=== PATIENT | female | born 1945 | race Caucasian/White ===

== ENCOUNTER 2017-05-26 08:52 | Observation (INO) | payer OTHER ==
[2017-05-26] VITALS (13 sets, daily range): BP systolic 74–173; BP diastolic 36–98
[~2017-05-26] VITALS: Ht 160 cm; Wt 70.3 kg
[~2017-05-26 08:52] MED LIST: APAP500 PO; ASPIRIN EC81 M1 PO; CALCIUM 500 +1 EAC5 PO; CARVEDILOL3.125 MG PO; CARVEDILOL6.25 MG PO; CO Q-10100 MG PO; CRESTOR5 MG PO; CYMBALTA60 MG PO; DICLOFENAC SOD50 M1; EFFIENT10 MG PO; FISH OIL 1,0001 EAC5 PO; FLEXERIL PO; GABAPENTIN100 MG PO; HUMALOG100 UNIT/2 SUBQ; HUMULINR100; HYDROCODON-ACE1 EAC8; HYDROCODON-ACE1 EAC8 PO; IMDUR 30 MG TAB30 M1 PO; KEFLEX500 MG PO; LAMICTAL 25 MG25 M1; LAMOTRIGINE100 MG PO; LANTUS SC; LANTUSSOLASTAR SUBQ; LEVAQUIN 500 M500 M1 PO; LISINOPRIL10 MG; LISINOPRIL10 MG PO; LISINOPRIL20 MG PO; NEURONTIN 300300 M1 PO; NITROGLYCERIN0.3 MG SL; NITROGLYCERIN0.4 MG SL; OMEPRAZOLE 20 M20 MG PO; PREMARIN0.9 M1 PO; PREMPRO 0.3 MG1 EACH PO; VITAMIN D1000 UNI1 PO; VITAMIN D400 UNI1; XANAX 0.25 MG0.25 MG PO; ZOFRAN ODT4 MG PO; proair hfa IH
[2017-05-26 09:45] LABS: HEMATOCRIT 39.7 % (37.0-47.0); HEMOGLOBIN 13.1 gm/dL (12.0-15.0); MCH 30.7 pg (26.0-34.0); MCHC 33.1 g/dL (28.0-37.0); MCV 92.9 fL (80.0-100.0); MPV 8.1 fl. (7.2-11.1); RBC 4.28 mil/uL (4.20-5.00); WBC 8.8 thou/uL (4.0-11.0)
[2017-05-26] MEDS ORDERED: IMDUR 30 MG TAB30 M1 PO (09:52)
[2017-05-26 09:54] LABS: PROTIME 9.6 Seconds (9.20-11.50)
[2017-05-26 09:59] LABS: ANION GAP 4 mmol/L (7-16); BUN 20 mg/dL (7-18); CALCIUM 8.4 mg/dL (8.5-10.1); CHLORIDE 104 mmol/L (98-107); CO2 34 mmol/L (21-32); CREATININE 0.8 mg/dL (0.6-1.3); GLUCOSE 194 mg/dL (70-99); POTASSIUM 4.4 mmol/L (3.5-5.1); SODIUM 142 mmol/L (136-145)
[2017-05-26 10:04] LABS: ALBUMIN 3.2 g/dL (3.4-5.0); ALKALINE PHOSPHATASE 104 U/L (46-116); CHOLESTEROL 157 mg/dL (<200); HDL CHOLESTEROL 68 mg/dL (>40); LDL CHOLESTEROL 79 mg/dL (<100); SERUM ASSESSMENT Clear; SGOT 16 U/L (15-37); SGPT 19 U/L (30-65); TC:HDL 2.3 Ratio (Not establshd); TOTAL BILIRUBIN 0.4 mg/dL (<0.1-1.0); TOTAL PROTEIN 6.2 g/dL (6.4-8.2); TRIGLYCERIDE 53 mg/dL (<150); VLDL 11 mg/dL (<40)
--- NOTE | 2017-05-26 10:42 | H ---
[place] [address] HISTORY AND PHYSICAL Name: KATIE ZAMORA Room: [facility]#: [id number] Admission: 05/26/17 Attend Phys: Simon Collier MD, Discharge: Date of : 47 Report #: [id number] THIS REPORT FOR: //name// CC: Simon Garcia DATE OF SERVICE: 05/26/2017 HISTORY OF PRESENT ILLNESS: The patient is a very pleasant 72-year-old female with a history of coronary artery disease, approximately 4 years status post non-ST segment elevation myocardial infarction, interrupted by percutaneous coronary intervention of the right coronary artery. Recently, she has been plagued by an upper respiratory infection. She denied symptoms typical of myocardial ischemia, but does note some dyspnea on exertion. There is underlying hypertension, hypercholesterolemia, type 2 diabetes and cigarette smoking history. The patient is compliant with antiplatelet, antihypertensive, lipid lowering and diabetic therapy without side effects. MEDICATIONS: Included Augmentin, aspirin, carvedilol, cholecalciferol, coenzyme Q, Cymbalta, fish oil, gabapentin, hydrocodone, Lantus insulin, Humalog insulin, isosorbide dinitrate, Lamictal, and Crestor. PAST MEDICAL HISTORY: Remarkable for diabetes, hyperlipoproteinemia, mild chronic kidney disease and chronic anxiety. She is status post carpal tunnel release and prior neck surgery. PHYSICAL EXAMINATION: GENERAL: Demonstrates an elderly female, in no acute distress. VITAL SIGNS: Blood pressure is 130/72, pulse rate is 84, respirations are 18 per minute. NECK: Jugular venous pressure is normal. Carotids are 1-2+. CHEST: Reveals scattered rhonchi without wheezing. CARDIAC: Reveals no murmurs or gallops. ABDOMEN: Soft and nontender. EXTREMITIES: Without edema with intact pulses. DIAGNOSTIC STUDIES: Recent nuclear stress test of 05/17/2017 is reviewed and it demonstrated inducible inferolateral ischemia with ST-T changes suggestive of ischemia. IMPRESSION: 1. Coronary artery disease, status post remote inferior infarction. 2. Recently abnormal stress test with [place] [address] HISTORY AND PHYSICAL Name: KATIE ZAMORA Room: [facility]#: [id number] Admission: 05/26/17 Attend Phys: Simon Collier MD, Discharge: Date of : 47 Report #: [id number]-T changes suggestive of ischemia. 3. Underlying coronary artery disease. 4. Hypertension. 5. Type 2 diabetes. 6. Hyperlipoproteinemia. 7. Status post prior percutaneous intervention to the right coronary artery. RECOMMENDATIONS: Given the aforementioned clinical scenario with known coronary artery disease and recently abnormal stress test with inducible inferolateral ischemia on radionuclide scans with concomitant ST-T changes suggestive of ischemia, I would recommend proceeding with cardiac catheterization to define the magnitude of coronary artery disease and prospects for subsequent therapy. The procedure and risks have been discussed with the patient. The patient to be admitted as an outpatient for cardiac catheterization on 05/26/2017. <ELECTRONICALLY SIGNED> By: Simon Collier MD, FACC 05/26/17 1042 1118 [id number] Collier MD, [facility] /nt
--- NOTE | 2017-05-26 16:21 | EKG ---
[place] [address] ELECTROCARDIOGRAM REPORT Name: KATIE ZAMORA Room: [place] [address] ADM IN M.R.#: [id number] Admission: 05/26/17 Attend Phys: Simon Collier MD, Discharge: Date of : 47 Report #: [id number] THIS REPORT FOR: //name// [facility] Test Date: 2017-05-26 Test Time: 10:38:46 Pat Name: KATIE ZAMORA Department: Room: [facility] Gender: F Life Sciences Manager: : 1945 Requested By: Simon Collier Order Number: [id number] Lucia MD: Simon Collier Measurements Intervals [place] Rate: 60 P: 57 HI: 161 QRS: 45 QRSD: 79 T: 75 QT: 424 QTc: 424 Interpretive Statements Sinus rhythm Compared to ECG 12/16/2014 11:00:49 Ventricular premature complex(es) no longer present Atrial abnormality no longer present Electronically Signed On 05-26-2017 16:21:39 HYDRAMATIC MECHANIC by Simon Collier [email or web address] <ELECTRONICALLY SIGNED> By: Simon Collier MD, [facility] 05/26/17 1621 1038 1038 Simon Collier MD, FAC /EPI
--- NOTE | 2017-05-26 16:23 | EKG ---
[place] [address] ELECTROCARDIOGRAM REPORT Name: KATIE ZAMORA Room: [place] [address] ADM IN M.R.#: [id number] Admission: 05/26/17 Attend Phys: Simon Collier MD, Discharge: Date of : 47 Report #: [id number] THIS REPORT FOR: //name// [facility] Test Date: 2017-05-26 Test Time: 12:43:49 Pat Name: KATIE ZAMORA Department: Room: [facility] Gender: F Intrusion Analyst: : 1945 Requested By: Simon Collier Order Number: [id number] Lucia MD: Simon Collier Measurements Intervals [place] Rate: 84 P: 69 SC: 164 QRS: 38 QRSD: 84 T: 102 QT: 409 QTc: 484 Interpretive Statements Sinus rhythm Nonspecific T abnormalities, lateral leads Minimal ST elevation, anterior leads Baseline wander in lead(s) II Compared to ECG 12/16/2014 11:00:49 T-wave abnormality now present ST (T wave) deviation now present Electronically Signed On 05-26-2017 16:23:21 SEMI CONDUCTOR ASSEMBLER by Simon Collier [email or web address] <ELECTRONICALLY SIGNED> By: Simon Collier MD, [facility] 05/26/17 1623 1243 1243 Simon Collier MD, [facility] /EPI
--- NOTE | 2017-05-26 16:40 | NUR ---
A WHITE FEMALE AGE 72 ADMITTED POST CATH FROM DIRECTOR OF ASSESSING. DRESSING DRY AND INTACT TO LEFT GROIN. IVF OF NS INFUSING AT 50 ML/HR. FAMILT TOOK ALL BELONINGS HOME FROM DIRECTOR OF ASSESSING. PT DENIES ANY COMPLAINTS OF PAIN OR DISCOMFORT. WILL MONITOR FREQUENTLY.
--- NOTE | 2017-05-26 16:42 | CARD ---
[address] [address] CARDIAC CATH REPORT Name: KATIE ZAMORA Room: [address] IN [facility]#: [id number] Admission: 05/26/17 Attend Phys: Simon Collier MD, Discharge: Date of : 46 Report #: [id number] THIS REPORT FOR: //name// APPROVED REPORT Patient Details Patient Status: Out-Patient Room #: The patient is a 72 year-old female Event Personnel Celeste Hurtado RN, Simon Collier Electrical Assembly Supervisor, Grisel Nevarez Langston, Anthony ARRT (R) Monitor Procedures Performed [place] Place w/wo Plasty Single CIRC; left heart catheterization left ventriculography and selective coronary angiography Indication Positive stress test Risk Factors Hypercholesterolemia, Hypertension Previous Procedures/Diagnoses Previous PCI, Previous ID Admission/Lab Medications/Medications given during procedure Angiomax bolus and infusion Procedure Narrative The patient was brought electively to the Cardiac Catheterization Laboratory and was prepped and draped in a sterile manner. The left femoral was infiltrated with 1% Lidocaine subcutaneous anesthesia. A [place] 6FR sheath was inserted into the Left Femoral Artery. Coronary angiography was performed using coronary diagnostic catheters. The right coronary system was accessed and visualized with a Diagnostic AL1 catheter. The left coronary system was accessed and visualized with a Diagnostic JL 4 catheter. The left ventricle was accessed and visualized with a Diagnostic Angled Pig catheter. Left ventricular/Aortic Valve gradient assessed via catheter pullback. Left ventriculogram was performed in CHAMBERS projection. Pre-demployment femoral angiogram was performed . Closure device was deployed with a Fr Angioseal STS 6Fr. The patient [place] [address] CARDIAC CATH REPORT Name: KATIE ZAMORA Room: [address] IN [facility]#: [id number] Admission: 05/26/17 Attend Phys: Simon Collier MD, Discharge: Date of : 46 Report #: [id number] there were no complications associated with the procedure. There was no hematoma. Intraoperative Conscious Sedation Sedation start time: 10:53 Case end Time: 11:53 Fentanyl 25 mcg Versed 1 mg Fluoro Time: 15.6 minutes Dose: DAP 069971 cGycm2 1732 mGy Contrast Type and Amount: Visipaque 350 ml Diagnostic Cath Left Main 0% narrowing LAD 20% mid LAD narrowing Circumflex 75% calcified mid circumflex stenosis with 90% calcified distal circumflex stenosis Right Coronary Dominant vessel with widely patent proximal stents 40% mid vessel narrowing and 40% narrowing of the proximal portion of the posterior descending artery Left Ventriculography The left ventricle is normal in size with contractility. The left ventricular ejection fraction is estimated to be 50%. Left ventricular wall motion abnormalities are present. There is no mitral insufficiency. There is moderate inferobasilar and mild inferoapical hypokinesis noted Hemodynamics The aortic pressure is 153/57 mmHg with a mean of 90 mmHg. The left ventricular pressure is 148/1 mmHg with a mean of mmHg. The left ventricular end diastolic pressure is 12 mmHg. There was no gradient across the aortic valve upon pullback. PCI Technique Lesion Anticoagulation was achieved with Angiomax. Patient was preloaded with Angiomax IV 10.5 ml. Percutaneous coronary intervention was performed on the distal circumflex artery segment. The lesion stenosis prior to intervention was 90% with SUSIE 3 flow. A 6F XB LAD 3.5 Guide Catheter was used to engage the ostium. A IG: ProwaterFlex 180CM Interventional Guidewire was used to cross the lesion. BALLOON DILATION A Balloon catheter Trek RX 2.25 X 8 was inserted and inflated up to 12.00atm for 15seconds. Additional Inflation: 14.00atm for 13seconds. Additional Inflation: 14.00atm [place] 11[place]. [place] [address] CARDIAC CATH REPORT Name: KATIE ZAMORA Room: [address] IN [facility]#: [id number] Admission: 05/26/17 Attend Phys: Simon Collier MD, Discharge: Date of : 46 Report #: [id number] STENT DEPLOYMENT A drug-eluting stent Xience Alpine RX 2.25X12 was inserted and inflated up to 10.00atm for 13seconds. Additional Inflation: 14.00atm for 12seconds. Additional Inflation: 15.00atm for 12seconds. Final angiography reveals 10 % stenosis with SUSIE 3 flow. PCI Technique Lesion 2 Percutaneous Coronary Intervention was performed on the mid circumflex artery segment. Patient was preloaded with Angiomax IV 10.5 ml. Percutaneous coronary intervention was performed on the mid circumflex artery segment. The lesion stenosis prior to intervention was 75% with SUSIE 3 flow. A 6F XB LAD 3.5 Guide Catheter was used to engage the ostium. A IG: ProwaterFlex 180CM Interventional Guidewire was used to cross the lesion. Balloon Dilation A Balloon catheter Trek RX 2.25 X 8 was inserted and inflated up to 14atm for 13seconds. Stent Deployment A drug-eluting stent Xience Alpine RX 2.5X12 was inserted and inflated up to 12.00atm for 15seconds. Additional Inflation: 15.00atm for 10seconds. Final angiography reveals 10 % stenosis with SUSIE 3 flow. Conclusion #1 significant coronary artery disease characterized by the following: A 20% mid LAD narrowing, B tandem 75% mid and 90% distal circumflex stenoses, both being calcified, C dominant right coronary artery with widely patent proximal stents 40% mid vessel narrowing and 40% narrowing of the proximal portion of the posterior descending branch #2 mild impairment in global left ventricular systolic function, estimated ejection being a 50% with moderate inferobasilar and mild [place] [address] CARDIAC CATH REPORT Name: KATIE ZAMORA Room: [address] IN [facility]#: [id number] Admission: 05/26/17 Attend Phys: Simon Collier MD, Discharge: Date of : 47 Report #: [id number] #3 moderate systemic systolic hypertension #4 successful percutaneous coronary intervention with deployment of sequential drug-eluting stents at the size of 75% mid and 90% distal circumflex stenosis with 10% residual narrowing at both sites following stent deployment and SUSIE-3 flow the distal vessel. Recommendations Cardiac Rehabilitation Referral Medical Therapy Medications Administered Aspirin (any) Ticagrelor <ELECTRONICALLY SIGNED> By: Simon Collier MD, FACC 05/26/171640 40 40Simon Collier MD, FACC /INF
--- NOTE | 2017-05-26 19:00 | NUR ---
PT RESTING WELL. PT TOLERATED SUPPER TRAY. PT BS 235 PT REFUSING S/S DOSE BUT DID TAKE 12 UNITS.LEFT ROIN DRESSING REMAINS INTACT. PT IS PROGRESSING TOWARDS GOALS.
[2017-05-27 01:03] VITALS: BP 148/50
[2017-05-27 03:50] VITALS: BP 148/69
[2017-05-27 05:28] LABS: HEMATOCRIT 36.6 % (37.0-47.0); HEMOGLOBIN 12.4 gm/dL (12.0-15.0); MCHC 33.8 g/dL (28.0-37.0); MCV 91.7 fL (80.0-100.0); MPV 8.2 fl. (7.2-11.1); RBC 3.99 mil/uL (4.20-5.00); RDW-CV 13.1 % (10.5-14.5); WBC 10.7 thou/uL (4.0-11.0)
[2017-05-27 05:41] LABS: CALCIUM 8.1 mg/dL (8.5-10.1); CREATININE 0.6 mg/dL (0.6-1.3); POTASSIUM 3.9 mmol/L (3.5-5.1)
[2017-05-27 06:07] LABS: TROPONIN-I LEVEL 2.79 ng/mL (<0.06)
--- NOTE | 2017-05-27 06:46 | NUR ---
PT IS ABLE TO COMMUNICATE HER NEEDS TO STAFF EFFECTIVELY. CURRENT PAIN MEDICATION REGIMEN HAS BEEN ADEQUATE FOR CONTROLLING HER PAIN UP TO THIS TIME. GRESHMA WAS PATENT UNTIL REMOVAL THIS MORNING. LEFT GROIN SITE IS C/D/I UP TO THIS TIME.
--- NOTE | 2017-05-27 07:20 | NUR ---
CHANGE OF SHIFT BEDSIDE REPORT GIVEN ASSUMED PATIENT CARE PATIENT SEEN AT BEDSIDE, ASLEEP
[2017-05-27 08:00] VITALS: BP 155/57
[2017-05-27 10:42] VITALS: BP 121/52
[2017-05-27 11:54] VITALS: BP 149/44
--- NOTE | 2017-05-27 13:00 | NUR ---
PATIENT WITH C/O NAUSEA THIS AM TREATED WITH ZOFRAN IVP RELIEVED AND WAS ABLE TO EAT AND TOLERATE LUNCH
[2017-05-27] MEDS ORDERED: BRILINTA90 MG PO (16:09)
--- NOTE | 2017-05-27 17:00 | NUR ---
PATIENT WITH C/O OF WEAKNESS AND A LITTLE DIAPHORETIC BLOOD GLUCOSE CHECKED AND 45, H/O DM PATIENT WITH NO IV ACCESS DUE TO PENDING DISCHARGE HOME PATIENT GIVEN PEANUT BUTTER AND MILK TO EAT AND DRINK REMAINED AT BEDSIDE WITH PATIENT PATIENT STATES FEELS BETTER DINNER HERE AND PATIENT TO EAT DINNER AND WILL RECHECK BLOOD GLUCOSE AFTER DINNER AND REEVALUATE PATIENT
--- NOTE | 2017-05-27 17:17 | EKG ---
[place] [address] ELECTROCARDIOGRAM REPORT Name: KATIE ZAMORA Room: [address] M.R.#: [id number] Admission: 05/26/17 Attend Phys: Simon Collier MD, Discharge: Date of : 46 Report #: [id number] THIS REPORT FOR: //name// [facility] Test Date: 2017-05-27 Test Time: 05:05:14 Pat Name: KATIE ZAMORA Department: Room: [facility] Gender: F Multimedia Educational Specialist: GEOVANNI : 1945 Requested By: Simon Collier Order Number: [id number] Reading MD: Shravan Latif Measurements Intervals [place] Rate: 71 P: 68 [place]: 173 QRS: 16 QRSD: 83 T: 57 QT: 393 QTc: 428 Interpretive Statements Sinus rhythm Ventricular premature complex Probable left atrial enlargement Compared to ECG 05/26/2017 12:43:49 Ventricular premature complex(es) now present T-wave abnormality no longer present ST (T wave) deviation no longer present Electronically Signed On 05-27-2017 17:16:51 ENVIRONMENTAL LAWYER by Shravan Latif [email or web address] <ELECTRONICALLY SIGNED> By: Shravan Latif MD, FACC 05/27/17 1716 0505 0505 Shravan Latif MD, [facility] /EPI
--- NOTE | 2017-05-27 17:30 | NUR ---
PATIENT STATES "FEELS BETTER" BLOOD GLUCOSE RECHECK 173
--- NOTE | 2017-05-27 17:44 | NUR ---
PATIENT DCD TO HOME DC INFORMATION GIVEN AND ACKNOWLEDGED IV AND HEART MONITOR REMOVED PERSONAL BELONGINGS RETURNED PATIENT ASSISTED OUT VIA WC GOOD CONDITION TO WAITING CAR
--- NOTE | 2017-05-28 10:49 | H ---
[place] [address] HISTORY AND PHYSICAL Name: KATIE ZAMORA Room: [address] Laxmi Gaines#: [id number] Admission: 05/26/17 Attend Phys: Simon Collier MD, Discharge: 05/27/17 Date of : 47 Report #: [id number] THIS REPORT FOR: //name// CC: Simon Garcia DATE OF SERVICE: 05/26/2017 The patient admitted and seen on 05/26/2017, admitted through outpatient for cardiac catheterization on 05/26/2017. HISTORY OF PRESENT ILLNESS: The patient is a 72-year-old female with known coronary artery disease, status post non-ST segment elevation inferior infarction interrupted by percutaneous coronary intervention of the right coronary artery in April 2012. Recently, she has described some chest discomfort and dyspnea, the latter in the setting of an upper respiratory infection. There is underlying hypertension, hypercholesterolemia, type 2 diabetes, and a prior cigarette smoking. MEDICATIONS: The patient takes a complex medical regimen including Augmentin, aspirin, carvedilol, cholecalciferol, duloxetine, fish oil, gabapentin, hydrocodone/acetaminophen, Lantus insulin, Humalog insulin, isosorbide dinitrate, lamotrigine and rosuvastatin. PAST MEDICAL HISTORY: Remarkable for the aforementioned risk factors for coronary disease including hypertension, hypercholesterolemia and type 2 diabetes. She is status post prior carpal tunnel release, neck surgery and total knee arthroplasty. PHYSICAL EXAMINATION: GENERAL: Demonstrates an elderly female in no acute distress. VITAL SIGNS: Blood pressure 130/70, pulse rate is 82, respirations are 18 per minute. NECK: Jugular venous pressure is normal. CHEST: Clear. CARDIOVASCULAR: Reveals normal first and second heart sounds with a soft systolic murmur with a question of S4 gallop. ABDOMEN: Mildly obese. EXTREMITIES: Without edema with intact femoral, trace right pedal and 1-2+ left pedal pulses. Recent nuclear stress test was abnormal with inducible ischemia. IMPRESSION: [place] [address] HISTORY AND PHYSICAL Name: KATIE ZAMORA Room: [address] Laxmi Gaines#: [id number] Admission: 05/26/17 Attend Phys: Simon Collier MD, Discharge: 05/27/17 Date of : 47 Report #: [id number] 1. Coronary artery disease. 2. Recently abnormal stress test with inducible ischemia. 3. Status post remote inferior infarction interrupted by percutaneous coronary intervention to the right coronary artery in 2012. 4. Hypertension. 5. Type 2 diabetes. 6. Hyperlipoproteinemia. RECOMMENDATIONS: Given the aforementioned clinical scenario, I will recommend cardiac catheterization to document current coronary anatomy and prospects for subsequent therapy. This has been discussed with the patient and family. The patient to be admitted through same day surgery for catheterization on 05/26/2017. <ELECTRONICALLY SIGNED> By: Simon Collier MD, [facility] 05/28/17 1049 1030 [id number] Araceli Colleir MD, [facility] /nt
--- NOTE | 2017-05-28 10:49 | D ---
[address] [address] DISCHARGE SUMMARY Name: KATIE ZAMORA Room: [address] Laxmi Gaines#: [id number] Admission: 05/26/17 Attend Phys: Simon Collier MD, Discharge: 05/27/17 Date of : 47 Report #: [id number] THIS REPORT FOR: //name// CC: Simon Garcia DATE OF SERVICE: 05/27/2017 FINAL DISCHARGE DIAGNOSES: 1. Coronary artery disease. 2. Abnormal nuclear stress test. 3. Status post percutaneous coronary intervention with deployment of two drug-eluting stents in the mid and distal circumflex respectively. 4. History of non-ST segment elevation myocardial infarction in 2012, with stenting of the right coronary artery at that time. 5. Hypertension. 6. Diabetes mellitus. 7. Hyperlipoproteinemia. PROCEDURES: 05/26/2017-left heart catheterization, left ventriculography, selective coronary arteriography, and percutaneous coronary intervention with deployment of two drug-eluting stents in the circumflex. The patient is a very pleasant 72-year-old female who presented with an abnormal nuclear stress test and dyspnea on exertion. She has the risk factors for coronary artery disease including diabetes, hypertension, and hyperlipoproteinemia. She underwent cardiac catheterization on 05/26, which revealed 75% mid and 90% distal circumflex stenosis. There was mild mid LAD narrowing with widely patent proximal right coronary artery stents and 40% mid and distal right coronary artery narrowing. Given this data, I placed two drug-eluting stents in the mid and distal circumflex respectively with a good angiographic result. The patient did well postprocedurally. She had no chest pain suggesting recurrent ischemia. Laboratory on 05/27, revealed sodium 137, potassium 3.9, BUN 14, and creatinine 0.6. Hemoglobin 12.4, white blood cell count 10,700 with 211,000 platelets. She ambulated without difficulty and there was good hemostasis at the left femoral site of catheterization. She was discharged to home on the following medications: Aspirin 81 mg daily, carvedilol 6.25 mg b.i.d., cholecalciferol 2000 units daily, Cymbalta 60 mg daily, fish oil 1000 mg daily, gabapentin 300 mg t.i.d., Lantus insulin 35 units subcutaneously in the a.m., Humalog insulin 12-15 units subcutaneously with meals on a sliding scale at home, isosorbide mononitrate 30 mg daily, lamotrigine 100 mg daily, omega-3 fatty acids 10,000 mg daily, ticagrelor or Brilinta 90 mg b.i.d. with a 180 mg dose given periprocedurally, Coenzyme Q 100 mg daily, ProAir as needed, [place] [address] DISCHARGE SUMMARY Name: KATIE ZAMORA Room: [address] Laxmi Gianes#: [id number] Admission: 05/26/17 Attend Phys: Simon Collier MD, Discharge: 05/27/17 Date of : 47 Report #: [id number] p.r.n. sublingual nitroglycerin. The patient is scheduled to return to see my nurse practitioner, Gabby Ashford in 06/02/2017, at 1330 and myself on 07/27/2017 at 11:30. <ELECTRONICALLY SIGNED> By: Simon Collier MD, FACC 05/28/17 1049 0916 [id number] Collier MD, FACC /nt
[2017-08-04] MEDS ORDERED: ZETIA10 MG PO (11:19)
[2017-08-04] MEDS ORDERED: HYDROCODONE-AP1 EAC6 PO (11:20)
== END 2017-05-27 18:00 | disposition home or self-care (01) ==
LOC: M.CL 08:52 → M.2W 12:10 → M.TBA-CV 12:10 → M.2W 16:53
PROVIDERS: ADMIT Internal Medicine
DX: I25.10 Atherosclerotic heart disease of native coronary artery without angina pectoris (principal); R94.39 Abnormal result of other cardiovascular function study; I25.2 Old myocardial infarction; E78.5 Hyperlipidemia, unspecified; E78.00 Pure hypercholesterolemia, unspecified; E11.22 Type 2 diabetes mellitus with diabetic chronic kidney disease; I12.9 Hypertensive chronic kidney disease with stage 1 through stage 4 chronic kidney disease, or unspecified chronic kidney disease; N18.2 Chronic kidney disease, stage 2 (mild); F41.8 Other specified anxiety disorders; Z87.891 Personal history of nicotine dependence

== ENCOUNTER 2017-07-11 11:05 | Emergency (ER) | payer OTHER ==
[~2017-07-11] VITALS: Ht 165.1 cm; Wt 77.1 kg
[~2017-07-11 11:05] MED LIST changes: +BRILINTA90 MG PO
[2017-07-11] MEDS ORDERED: EFFIENT10 MG PO (11:17)
[2017-07-11 11:40] LABS: ABSOLUTE BASOPHILS 0.1 thou/uL (0.0-0.2); ABSOLUTE EOSINOPHILS 0.3 thou/uL (0.0-0.7); ABSOLUTE LYMPHOCYTES 1.9 thou/uL (0.8-5.3); ABSOLUTE MONOCYTES 0.7 thou/uL (0.0-1.2); ABSOLUTE NEUTROPHILS 6.9 thou/uL (1.6-8.1); BASOPHILS 0.6 %; EOSINOPHILS 3.2 %; HEMATOCRIT 43.3 % (37.0-47.0); HEMOGLOBIN 14.2 gm/dL (12.0-15.0); LYMPHOCYTES 18.9 %; MCH 30.5 pg (26.0-34.0); MCHC 32.8 g/dL (28.0-37.0); MONOCYTES 6.9 %; MPV 7.8 fl. (7.2-11.1); NUCLEATED RBCS 0 /100WBC; PLATELET COUNT* 261 thou/uL (150-400); POLYS 70.4 %; RBC 4.65 mil/uL (4.20-5.00); RDW-CV 13.1 % (10.5-14.5); WBC 9.8 thou/uL (4.0-11.0)
[2017-07-11 11:54] LABS: APTT 25.4 Seconds (25.0-31.3); INR 0.9; PROTIME 9.1 Seconds (9.20-11.50)
[2017-07-11 12:21] LABS: ANION GAP 6 mmol/L (7-16); BUN 15 mg/dL (7-18); CALCIUM 9.3 mg/dL (8.5-10.1); CHLORIDE 101 mmol/L (98-107); CO2 32 mmol/L (21-32); CREATININE 0.6 mg/dL (0.6-1.3); GLUCOSE 163 mg/dL (70-99); POTASSIUM 5.2 mmol/L (3.5-5.1); SODIUM 139 mmol/L (136-145)
[2017-07-11 12:40] LABS: ALBUMIN 3.6 g/dL (3.4-5.0); ALKALINE PHOSPHATASE 136 U/L (46-116); CK-MB MASS 6.4 ng/mL (<0.5-3.6); LIPASE 43 U/L (73-393); NT-PRO BRAIN NAT PEPTIDE 317 pg/mL (<300); SGOT 49 U/L (15-37); SGPT 29 U/L (30-65); TOTAL BILIRUBIN 0.5 mg/dL (<0.1-1.0); TOTAL PROTEIN 7.4 g/dL (6.4-8.2); TROPONIN-I LEVEL <0.06 ng/mL (<0.06)
[2017-07-11 13:44] VITALS: BP 191/83
--- NOTE | 2017-07-12 10:48 | EKG ---
[place] [address] ELECTROCARDIOGRAM REPORT Name: KATIE ZAMORA [id number] Admission: 07/11/17 Attend Phys: Discharge: 07/11/17 Date of : 47 Report #: [id number] THIS REPORT FOR: //name// [facility] ED Test Date: 2017-07-11 Test Time: 11:16:02 Pat Name: KATIE ZAMORA Department: Room: Gender: F Oceanographer Physical: : 1945 Requested By: Denny Densi Order Number: [id number] MD: Pro Acuña Measurements Intervals [place] Rate: 70 P: 75 MD: 161 QRS: 8 QRSD: 86 T: 54 QT: 412 QTc: 445 Interpretive Statements Sinus rhythm nonspecific t wave change Compared to ECG 05/27/2017 05:05:14 Ventricular premature complex(es) no longer present Electronically Signed On 07-12-2017 10:48:11 CDT by Pro Acuña [email or web address] <ELECTRONICALLY SIGNED> By: Pro Acuña MD, [facility] 07/12/17 1048 15 Pro Acuña MD, FACC /EPI
[2017-08-04] MEDS ORDERED: ZETIA10 MG PO (11:19)
[2017-08-04] MEDS ORDERED: HYDROCODONE-AP1 EAC6 PO (11:20)
== END 2017-07-11 13:45 | disposition home or self-care (01) ==
LOC: M.ERS 11:05
PROVIDERS: Family Medicine
DX: I10 Essential (primary) hypertension (principal); E11.9 Type 2 diabetes mellitus without complications; I25.2 Old myocardial infarction; Z88.1 Allergy status to other antibiotic agents; Z88.2 Allergy status to sulfonamides; Z88.5 Allergy status to narcotic agent

== ENCOUNTER 2017-07-16 20:34 | Inpatient (IN) | payer OTHER ==
[~2017-07-16] VITALS: Ht 157.5 cm; Wt 75.3 kg
[2017-07-16 20:43] VITALS: BP 181/76
[2017-07-16 21:16] LABS: HEMATOCRIT 38.8 % (37.0-47.0); HEMOGLOBIN 12.7 gm/dL (12.0-15.0); MCH 30.8 pg (26.0-34.0); MCHC 32.6 g/dL (28.0-37.0); MCV 94.2 fL (80.0-100.0); MPV 8.5 fl. (7.2-11.1); NUCLEATED RBCS 0 /100WBC; PLATELET COUNT* 238 thou/uL (150-400); RBC 4.12 mil/uL (4.20-5.00); RDW-CV 13.2 % (10.5-14.5); WBC 16.3 thou/uL (4.0-11.0)
[2017-07-16 21:16] LABS: URINE BILIRUBIN NEGATIVE (Negative); URINE BLOOD NEGATIVE (Negative); URINE CLARITY CLEAR; URINE COLOR YELLOW; URINE GLUCOSE-RANDOM 3+ (Negative); URINE KETONES 3+ (Negative); URINE LEUKOCYTES-REFLEX NEGATIVE (Negative); URINE NITRITE-REFLEX NEGATIVE (Negative); URINE PROTEIN TRACE (Negative)
[2017-07-16 21:22] LABS: ANION GAP 7 mmol/L (7-16); BUN 16 mg/dL (7-18); CALCIUM 8.5 mg/dL (8.5-10.1); CHLORIDE 101 mmol/L (98-107); CO2 30 mmol/L (21-32); CREATININE 0.9 mg/dL (0.6-1.3); GLUCOSE 347 mg/dL (70-99); POTASSIUM 4.2 mmol/L (3.5-5.1); SODIUM 138 mmol/L (136-145)
[2017-07-16 21:26] LABS: PROTIME 9.6 Seconds (9.20-11.50)
[2017-07-16 21:38] LABS: ALBUMIN 3.2 g/dL (3.4-5.0); ALKALINE PHOSPHATASE 143 U/L (46-116); NT-PRO BRAIN NAT PEPTIDE 616 pg/mL (<300); SGOT 17 U/L (15-37); SGPT 18 U/L (30-65); TOTAL BILIRUBIN 0.9 mg/dL (<0.1-1.0); TOTAL PROTEIN 6.8 g/dL (6.4-8.2); TROPONIN-I LEVEL <0.06 ng/mL (<0.06)
[2017-07-16 21:44] LABS: ABSOLUTE MONOCYTES 1.3 thou/uL (0.0-1.2)
[2017-07-16 21:45] LABS: ANISOCYTOSIS Occasional; PLATELET ESTIMATE ADEQUATE; TOXIC GRANULATION 1+
[2017-07-17 00:07] LABS: INFLUENZA A ANTIGEN None Detected (None Detect); INFLUENZA B ANTIGEN None Detected (None Detect)
[2017-07-17 03:39] LABS: BE -1.1 mmol/L (-2 to +3); HCO3 25.4 mmol/L (22.0-26.0); PO2 107.6 mmHg (75.0-100.0); pH 7.322 (7.340-7.450)
[2017-07-17 03:41] LABS: PCO2 50.2 mmHg (35.0-45.0)
[2017-07-17 08:38] VITALS: BP 129/72
[2017-07-17 09:00] VITALS: BP 136/58
[2017-07-17 10:00] VITALS: BP 136/58
[2017-07-17 11:30] VITALS: BP 136/58
--- NOTE | 2017-07-17 12:25 | EKG ---
[place] [address] ELECTROCARDIOGRAM REPORT Name: HARRIETT ZAMORANA JORDANA Room: [address] ADM IN M.R.#: [id number] Admission: 07/17/17 Attend Phys: Alex Littlejohn Discharge: Date of : 47 Report #: [id number] THIS REPORT FOR: //name// [facility] ED Test Date: 2017-07-16 Test Time: 21:19:52 Pat Name: KATIE ZAMORA Department: Room: [facility] Gender: F Inventory Control Manager: CASPER : 1945 Requested By: Loraine Urbina Order Number: [id number] MD: Iker Kirby Measurements Intervals [place] Rate: 86 P: 68 [place]: 154 QRS: 33 QRSD: 81 T: 30 QT: 387 QTc: 463 Interpretive Statements Sinus rhythm Ventricular premature complex Compared to ECG 07/11/2017 11:16:02 Ventricular premature complex(es) now present T-wave abnormality no longer present Electronically Signed On 07-17-2017 12:24:58 CDT by Iker Kirby [email or web address] <ELECTRONICALLY SIGNED> By: Iker Kirby MD, FAC 07/17/17 1224 18 18 Iker Kirby MD, [facility] /EPI
[2017-07-17 15:16] VITALS: BP 152/54
[2017-07-17 20:00] VITALS: BP 126/51
[2017-07-18] VITALS: BP 137/56
[2017-07-18 04:00] VITALS: BP 144/63
[2017-07-18 05:14] LABS: ABSOLUTE LYMPHOCYTES 1.1 thou/uL (0.8-5.3); ABSOLUTE MONOCYTES 0.3 thou/uL (0.0-1.2); ABSOLUTE NEUTROPHILS 13.8 thou/uL (1.6-8.1); BASOPHILS 0.1 %; HEMATOCRIT 34.9 % (37.0-47.0); HEMOGLOBIN 11.5 gm/dL (12.0-15.0); LYMPHOCYTES 7.5 %; MCH 30.5 pg (26.0-34.0); MCHC 32.8 g/dL (28.0-37.0); MCV 93.1 fL (80.0-100.0); MPV 8.4 fl. (7.2-11.1); NUCLEATED RBCS 0 /100WBC; PLATELET COUNT* 254 thou/uL (150-400); POLYS 90.4 %; RBC 3.75 mil/uL (4.20-5.00); RDW-CV 13.1 % (10.5-14.5); WBC 15.2 thou/uL (4.0-11.0)
[2017-07-18 05:39] LABS: ALBUMIN 2.8 g/dL (3.4-5.0); CALCIUM 8.5 mg/dL (8.5-10.1); CREATININE 0.7 mg/dL (0.6-1.3); POTASSIUM 4.3 mmol/L (3.5-5.1); TOTAL BILIRUBIN 0.4 mg/dL (<0.1-1.0); TOTAL PROTEIN 5.8 g/dL (6.4-8.2)
[2017-07-18 07:50] VITALS: BP 159/63
[2017-07-18 11:43] VITALS: BP 125/56
[2017-07-18 15:35] VITALS: BP 159/54
[2017-07-18 20:20] VITALS: BP 180/83
[2017-07-19 00:07] VITALS: BP 169/67
[2017-07-19 03:52] VITALS: BP 155/52
[2017-07-19 05:14] LABS: ABSOLUTE LYMPHOCYTES 1.1 thou/uL (0.8-5.3); ABSOLUTE MONOCYTES 0.4 thou/uL (0.0-1.2); ABSOLUTE NEUTROPHILS 15.3 thou/uL (1.6-8.1); BASOPHILS 0.2 %; HEMATOCRIT 34.2 % (37.0-47.0); HEMOGLOBIN 11.6 gm/dL (12.0-15.0); LYMPHOCYTES 6.8 %; MCH 31.3 pg (26.0-34.0); MCHC 33.8 g/dL (28.0-37.0); MCV 92.6 fL (80.0-100.0); MONOCYTES 2.2 %; MPV 8.2 fl. (7.2-11.1); NUCLEATED RBCS 0 /100WBC; PLATELET COUNT* 257 thou/uL (150-400); POLYS 90.8 %; RBC 3.69 mil/uL (4.20-5.00); RDW-CV 13.2 % (10.5-14.5); WBC 16.8 thou/uL (4.0-11.0)
[2017-07-19 06:01] LABS: ALBUMIN 2.8 g/dL (3.4-5.0); CALCIUM 8.7 mg/dL (8.5-10.1); CREATININE 0.8 mg/dL (0.6-1.3); TOTAL BILIRUBIN 0.3 mg/dL (<0.1-1.0); TOTAL PROTEIN 5.8 g/dL (6.4-8.2)
[2017-07-19 08:00] VITALS: BP 177/69
[2017-07-19 12:00] VITALS: BP 155/67
[2017-07-19 15:36] VITALS: BP 156/55
[2017-07-19 20:00] VITALS: BP 191/70
[2017-07-20] VITALS: BP 178/67
[2017-07-20 04:00] VITALS: BP 172/65
[2017-07-20 07:45] VITALS: BP 178/79
[2017-07-20 11:35] VITALS: BP 173/58
[2017-07-20 13:38] VITALS: BP 173/58
[2017-07-20] MEDS ORDERED: LEVAQUIN 750 M750 MG PO (13:48)
[2017-08-04] MEDS ORDERED: ZETIA10 MG PO (11:19)
[2017-08-04] MEDS ORDERED: HYDROCODONE-AP1 EAC6 PO (11:20)
== END 2017-07-20 16:38 | disposition home or self-care (01) | DRG 871 ==
LOC: M.ERS 20:34 → M.2W 07-17 04:08 → M.TBA-ER 07-17 04:08 → M.2W 07-17 08:31
PROVIDERS: Emergency Medicine; ADMIT Internal Medicine
DX: A41.9 Sepsis, unspecified organism (principal); J15.6 Pneumonia due to other Gram-negative bacteria; J96.01 Acute respiratory failure with hypoxia; G40.909 Epilepsy, unspecified, not intractable, without status epilepticus; E11.40 Type 2 diabetes mellitus with diabetic neuropathy, unspecified; E55.9 Vitamin D deficiency, unspecified; Z96.652 Presence of left artificial knee joint; Z90.49 Acquired absence of other specified parts of digestive tract; I25.2 Old myocardial infarction; Z95.5 Presence of coronary angioplasty implant and graft; Z98.1 Arthrodesis status; Z87.891 Personal history of nicotine dependence; Z79.4 Long term (current) use of insulin; Z79.82 Long term (current) use of aspirin; Z79.899 Other long term (current) drug therapy; Z88.1 Allergy status to other antibiotic agents; Z88.2 Allergy status to sulfonamides; Z88.5 Allergy status to narcotic agent; Z88.8 Allergy status to other drugs, medicaments and biological substances

== ENCOUNTER → 2017-08-04 | Outpatient (CLI) | payer OTHER ==
[~2017-08-04] VITALS: Ht 160 cm; Wt 72.6 kg
[~2017-08-04] MED LIST changes: +HYDROCODONE-AP1 EAC6 PO; +LEVAQUIN 750 M750 MG PO; +WELLBUTRIN 75 M75 M1 PO; +ZETIA10 MG PO
[2017-08-04 11:11] VITALS: BP 121/64
== END ==
LOC: M.INT 09:28
DX: Z12.31 Encounter for screening mammogram for malignant neoplasm of breast (principal)

== ENCOUNTER 2017-08-30 17:03 | Inpatient (IN) | payer OTHER ==
[~2017-08-30] VITALS: Ht 160 cm; Wt 75.3 kg
[~2017-08-30 17:03] MED LIST changes: -WELLBUTRIN 75 M75 M1 PO
[2017-08-30] MEDS ORDERED: WELLBUTRIN 75 M75 M1 PO (17:33)
[2017-08-30 17:40] LABS: HEMATOCRIT 42.2 % (37.0-47.0); HEMOGLOBIN 13.7 gm/dL (12.0-15.0); MCH 30.4 pg (26.0-34.0); MCHC 32.5 g/dL (28.0-37.0); MCV 93.6 fL (80.0-100.0); MPV 8.2 fl. (7.2-11.1); NUCLEATED RBCS 0 /100WBC; PLATELET COUNT* 320 thou/uL (150-400); RBC 4.51 mil/uL (4.20-5.00); RDW-CV 12.7 % (10.5-14.5); WBC 13.9 thou/uL (4.0-11.0)
[2017-08-30 17:42] LABS: BE -6.4 mmol/L (-2 to +3); HCO3 19.3 mmol/L (22.0-26.0); PCO2 39.2 mmHg (35.0-45.0); PO2 72.8 mmHg (75.0-100.0); pH 7.311 (7.340-7.450)
[2017-08-30 17:49] LABS: CALCIUM 9.2 mg/dL (8.5-10.1); CREATININE 0.9 mg/dL (0.6-1.3); POTASSIUM 5.7 mmol/L (3.5-5.1)
[2017-08-30 17:53] LABS: ALBUMIN 3.7 g/dL (3.4-5.0); TOTAL BILIRUBIN 0.7 mg/dL (<0.1-1.0); TOTAL PROTEIN 7.2 g/dL (6.4-8.2)
[2017-08-30 18:10] LABS: ABSOLUTE LYMPHOCYTES 1.4 thou/uL (0.8-5.3); ABSOLUTE MONOCYTES 0.4 thou/uL (0.0-1.2); ABSOLUTE NEUTROPHILS 12.1 thou/uL (1.6-8.1); PLATELET ESTIMATE ADEQUATE
[2017-08-30 19:02] LABS: URINE BLOOD NEGATIVE (Negative); URINE CLARITY CLEAR; URINE COLOR YELLOW; URINE GLUCOSE-RANDOM 2+ (Negative); URINE KETONES 2+ (Negative); URINE LEUKOCYTES-REFLEX NEGATIVE (Negative); URINE NITRITE-REFLEX NEGATIVE (Negative); URINE PROTEIN NEGATIVE (Negative); URINE SPECIFIC GRAVITY >= 1.030 (1.005-1.030); URINE UROBILINOGEN 0.2 E.U./dl (0.2-1.0)
[2017-08-30 19:06] LABS: ICTOTEST (BILI CONFIRMATORY) Negative (Negative); URINE BILIRUBIN 1+ (Negative)
[2017-08-30 20:00] VITALS: BP 130/58
[2017-08-30 20:07] VITALS: BP 136/80
[2017-08-30 20:39] LABS: MAGNESIUM 1.8 mg/dL (1.8-2.4); PHOSPHORUS* 4.7 mg/dL (2.5-4.9)
[2017-08-31] VITALS: BP 125/39
--- NOTE | 2017-08-31 03:54 | NUR ---
ASSUMED PT CARE AT 1999. PT IS AWAKE, ALERT TO PERSON PLACE AND SITUATION. NO TIME. PT IS TRACING NSR/ST ON THE MONITOR, ON RA SATTING MID TO HIGH 90'S. PT IS UP STB TO THE BR. PT HAS IVF INFUSING PER JUN. PT'S BLOOD GLUCOSE IS CHECKED EVERY 4 HOURS AND INSULIN GIVEN. PAST TWO INSLUIN DOSES, PT HAS REQUESTED A SMALLER DOSE OF INSULIN, DEPSITE VERBAL EDUCATION, DUE TO PT'S HOME SLIDING SCALE NOT MATCHING THE ONE SHE IS RECEIVING THIS STAY. BED IN LOW POSITION, CALL LIGHT IN REACH, HOURLY ROUNDING COMPLETED FOR PT SAFETY.
[2017-08-31 04:33] VITALS: BP 115/49
[2017-08-31 05:02] LABS: ALBUMIN 2.9 g/dL (3.4-5.0); ALKALINE PHOSPHATASE 111 U/L (46-116); BUN 19 mg/dL (7-18); CALCIUM 8.4 mg/dL (8.5-10.1); CHLORIDE 105 mmol/L (98-107); CO2 30 mmol/L (21-32); CREATININE 0.9 mg/dL (0.6-1.3); GLUCOSE 133 mg/dL (70-99); PHOSPHORUS* 2.9 mg/dL (2.5-4.9); SGOT 13 U/L (15-37); SGPT 17 U/L (30-65); TOTAL BILIRUBIN 0.5 mg/dL (<0.1-1.0); TOTAL PROTEIN 5.8 g/dL (6.4-8.2)
[2017-08-31 05:09] LABS: ABSOLUTE BASOPHILS 0.1 thou/uL (0.0-0.2); ABSOLUTE EOSINOPHILS 0.2 thou/uL (0.0-0.7); ABSOLUTE LYMPHOCYTES 3.1 thou/uL (0.8-5.3); ABSOLUTE MONOCYTES 1.1 thou/uL (0.0-1.2); ABSOLUTE NEUTROPHILS 8.5 thou/uL (1.6-8.1); BASOPHILS 0.5 %; EOSINOPHILS 1.3 %; HEMATOCRIT 36.2 % (37.0-47.0); HEMOGLOBIN 12.1 gm/dL (12.0-15.0); LYMPHOCYTES 23.8 %; MCH 30.8 pg (26.0-34.0); MCHC 33.4 g/dL (28.0-37.0); MCV 92.2 fL (80.0-100.0); MONOCYTES 8.7 %; MPV 8.4 fl. (7.2-11.1); NUCLEATED RBCS 0 /100WBC; PLATELET COUNT* 285 thou/uL (150-400); POLYS 65.7 %; RBC 3.93 mil/uL (4.20-5.00); RDW-CV 12.6 % (10.5-14.5); WBC 12.9 thou/uL (4.0-11.0)
[2017-08-31 05:18] LABS: ANION GAP 5 mmol/L (7-16); SODIUM 140 mmol/L (136-145)
[2017-08-31 05:19] LABS: POTASSIUM 4.1 mmol/L (3.5-5.1)
[2017-08-31 05:41] LABS: BE -0.7 mmol/L (-2 to +3); HCO3 25.3 mmol/L (22.0-26.0); PCO2 49.1 mmHg (35.0-45.0)
[2017-08-31 05:44] LABS: PO2 58.7 mmHg (75.0-100.0)
[2017-08-31 09:00] VITALS: BP 134/47
--- NOTE | 2017-08-31 10:04 | EKG ---
[place] [address] ELECTROCARDIOGRAM REPORT Name: KATIE ZAMORA Room: [address] ADM IN .R.#: [id number] Admission: 08/30/17 Attend Phys: Vania Evangelista MD Discharge: Date of : 47 Report #: [id number] THIS REPORT FOR: //name// [facility] ED Test Date: 2017-08-30 Test Time: 18:10:27 Pat Name: KATIE ZAMORA Department: Room: Gender: Stitch Wheeler: Ani DOVE : 1945 Requested By: Jackie Babb Order Number: [id number] MD: Pro Acuña Measurements Intervals [place] Rate: 88 P: 62 PA: 161 QRS: 23 QRSD: 83 T: QT: 361 QTc: 437 Interpretive Statements Sinus rhythm Probable left atrial enlargement Borderline T wave abnormalities Baseline wander in lead(s) I,III,aVL,aVF,V4,V6 Compared to ECG 07/16/2017 21:19:52 T-wave abnormality now present Ventricular premature complex(es) no longer present Electronically Signed On 08-31-2017 10:03:51 CDT by Pro Acuña [email or web address] <ELECTRONICALLY SIGNED> By: Pro Acuña MD, [facility] 08/31/17 1003 181 181 Pro Acuña MD, [facility] /EPI
[2017-08-31 10:20] LABS: CALCIUM 8.6 mg/dL (8.5-10.1); CREATININE 0.8 mg/dL (0.6-1.3); POTASSIUM 4.7 mmol/L (3.5-5.1)
[2017-08-31 11:33] VITALS: BP 134/47
--- NOTE | 2017-08-31 13:13 | NUR ---
ASSUMED PT CARE AT 0700 PT IS ALERT AND ORIENTED X 4 PT C/O PAIN GAVE PAIN MEDS REASSESSED PT STATES PAIN MEDS HELPED, PT DENIES SOA ON RA, PT IS UP AD NADEEN STEADY GAIT PT IS NOT A FALL RISK, PT IS SR PVC ON THE MONITOR, VSS, PT BLOOD SUGARS CHECKED Q 4 HOURS, PT IS SLEEPING STATES DID NOT FALL ASLEEP UNTIL MIDNIGHT, WILL CONTINUE TO MONITOR
--- NOTE | 2017-08-31 14:29 | NUR ---
MET WITH PT TO DISCUSS HOME SITUATION/DC PLANNING. PT LIVES ALONE, IS NORMALLY INDEPENDENT AND ACTIVE. UESE NO EQUIPMENT BUT HAS SOME IF NEEDED. PT STATES SHE HAD DIFFICULTY WITH NEW INSULIN V-GO AND PLANS TO GO BACK TO HER INJECTIONS. FEELING IMPROVED TODAY. PT HAS DTR WHO IS SUPPORTIVE IF NEEDED. DENIES DC NEEDS. WILL FOLLOW
[2017-08-31 15:40] VITALS: BP 122/37
[2017-09-01] VITALS: BP 140/57
--- NOTE | 2017-09-01 01:48 | NUR ---
ASSUMED PT CARE AT 19:15 REPORT RECEIVED FROM NURSE.PT IS ALERT, AWAKE, ORIENTED X 4. NO COMPLAINT OF PAIN AT THIS MOMENT. VITAL SIGNS WITHIN NORMAL LIMIT. ASSESSMENT PERFORMED .REFER TO CHARTING. SINUS RYTHM WIHT PVC ON THE COMPUTER. L IV LINE IS PATENT , NORMAL SALINE IS RUNNING AT 100CC/HR. SKIN IS INTACT. BLOOD SUGAR IS ORDERED Q4 HOURS. PT RECEIVED INSULIN UNITS AT 2100 FOR HER ELEVATED BLOOD SUGAR. REFER TO LAB CHARTING. BLOOD SUGAR DROPPED TO 57 IN THE NEXT COUPLE HOURS. SOME ICE CREAM WAS GIVEN. BS RECHECKED IT IS NOW AT 67. TO BE RECHECKED AT 0400. PT IS ASYMPTOMATIC. PT IS CURRENTLY SLEEPING IN BED WITH LIGHTS OFF TO PROMOTE SLEEP.
[2017-09-01 04:00] VITALS: BP 106/61
[2017-09-01 08:00] VITALS: BP 187/60
[2017-09-01 11:30] VITALS: BP 163/75
--- NOTE | 2017-09-01 13:46 | NUR ---
RECEIVED REPORT FROM HELLEN BRYANT. ASSUMED CARE OF PT AROUND 0730. PT A&O X4, PLEASANT. VSS. O2 SAT 94% ON RA. CARDIAC MONIOTR IN PLACE TRACING SR. LUGNS CLEAR THROUGHOUT. AM ASSESSMENT AND VITALS COMPLETED CHARTED. PT DENEIS PAIN OR DISCOMFORT SO FAR THIS SHIFT. NOTED LOW BLOOD GLUCOSE OVER THE NIGHT - DOCTOR NOTIFIED AND LONG ACTING INSULIN DOSE ADJUSTED. PT TO DC THIS AFTERNOON. PT UP AD NADEEN IN ROOM, VOIDING WITHOUT ISSUE. IV PATENT AND INFUSING IVF. PT EATING AND DRINKING WITHOUT ISSUE. PT CURRENTLY WATCHING TV IN BED ANTICIPAITNG DISHCARGE. LOW FALL RISK PRECAUTIONS IN PLACE. CALL LIGHT IS WITHIN REACH. HOURLY ROUNDING PERFORMED. WCTM.
[2017-09-01] MEDS ORDERED: HUMALOG100 UNIT/2 SUBQ (14:48)
[2017-09-01 14:51] VITALS: BP 163/75
--- NOTE | 2017-09-01 15:09 | NUR ---
DISCHARGE ORDERS RECEIVED. DISCHARGE COMPLETED CHARTED. DISCHARGE SUMMARY GONE OVER WITH PT, PT COMMUNICATES UNDERSTANDING. NO SCRIPTS GIVEN. PT AWARE OF DOSAGE CHANGES TO SHORT AND LONG-ACTING INSULIN. PT AWARE OF FOLLOW UP APPOINTMENT WITH PCP. ALL BELONGINGS GATHERED AND SENT WITH THE PT. IV AND LEVER TENDER REMOVED. VSS AT TIME OF DC. PT CURRENTLY WATCHING TV IN BED WAITING FOR HER RIDE HOME. WCTM UNTIL PT LEAVES UNIT.
== END 2017-09-01 17:10 | disposition home or self-care (01) | DRG 638 ==
LOC: M.ERS 17:03 → M.2W 18:21 → M.TBA-ER 18:21 → M.2W 19:51
PROVIDERS: Internal Medicine; Personal Emergency Response Attendant; Physician Assistant; ADMIT Internal Medicine
DX: E11.10 Type 2 diabetes mellitus with ketoacidosis without coma (principal); R65.10 Systemic inflammatory response syndrome (SIRS) of non-infectious origin without acute organ dysfunction; J96.10 Chronic respiratory failure, unspecified whether with hypoxia or hypercapnia; E44.0 Moderate protein-calorie malnutrition; I10 Essential (primary) hypertension; F32.9 Major depressive disorder, single episode, unspecified; G40.909 Epilepsy, unspecified, not intractable, without status epilepticus; I25.2 Old myocardial infarction; E11.40 Type 2 diabetes mellitus with diabetic neuropathy, unspecified; B34.9 Viral infection, unspecified; Z96.652 Presence of left artificial knee joint; Z90.49 Acquired absence of other specified parts of digestive tract; Z98.890 Other specified postprocedural states; Z95.5 Presence of coronary angioplasty implant and graft; Z79.4 Long term (current) use of insulin; Z79.2 Long term (current) use of antibiotics; Z79.82 Long term (current) use of aspirin; Z79.899 Other long term (current) drug therapy; Z88.6 Allergy status to analgesic agent; Z88.2 Allergy status to sulfonamides; Z88.8 Allergy status to other drugs, medicaments and biological substances; Z87.891 Personal history of nicotine dependence; Z68.29 Body mass index [BMI] 29.0-29.9, adult

== ENCOUNTER → 2017-09-27 | Outpatient (CLI) | payer OTHER, BC ==
[~2017-09-27] MED LIST changes: +WELLBUTRIN 75 M75 M1 PO
== END ==
LOC: M.CT 13:00
DX: I70.0 Atherosclerosis of aorta (principal); I74.5 Embolism and thrombosis of iliac artery; I73.9 Peripheral vascular disease, unspecified

== ENCOUNTER → 2017-10-12 | Outpatient (CLI) | payer OTHER ==
[2017-10-12] VITALS (7 sets, daily range): BP systolic 117–184; BP diastolic 48–64
[~2017-10-12] VITALS: Ht 157.5 cm; Wt 70.3 kg
[2017-10-12 08:49] LABS: HEMATOCRIT 41.2 % (37.0-47.0); HEMOGLOBIN 13.4 gm/dL (12.0-15.0); MCH 30.5 pg (26.0-34.0); MCHC 32.6 g/dL (28.0-37.0); MCV 93.7 fL (80.0-100.0); MPV 8.8 fl. (7.2-11.1); RBC 4.39 mil/uL (4.20-5.00)
[2017-10-12 08:53] LABS: CREATININE 0.7 mg/dL (0.6-1.3)
[2017-10-12 08:54] LABS: PROTIME 9.3 Seconds (9.20-11.50)
[2017-10-12 08:55] LABS: POTASSIUM 4.7 mmol/L (3.5-5.1)
[2017-10-12 08:58] LABS: ALBUMIN 3.3 g/dL (3.4-5.0); TOTAL BILIRUBIN 0.4 mg/dL (<0.1-1.0); TOTAL PROTEIN 6.6 g/dL (6.4-8.2)
== END | disposition home or self-care (01) ==
LOC: M.INT 07:57
PROVIDERS: Radiology Diagnostic Radiology
DX: I70.213 Atherosclerosis of native arteries of extremities with intermittent claudication, bilateral legs (principal); I70.0 Atherosclerosis of aorta; I10 Essential (primary) hypertension; I25.2 Old myocardial infarction; E11.69 Type 2 diabetes mellitus with other specified complication; E11.40 Type 2 diabetes mellitus with diabetic neuropathy, unspecified; E11.10 Type 2 diabetes mellitus with ketoacidosis without coma; Z98.890 Other specified postprocedural states; Z96.652 Presence of left artificial knee joint; Z79.4 Long term (current) use of insulin; Z79.899 Other long term (current) drug therapy; F32.9 Major depressive disorder, single episode, unspecified; Z87.19 Personal history of other diseases of the digestive system; Z88.2 Allergy status to sulfonamides; Z88.8 Allergy status to other drugs, medicaments and biological substances; Z79.82 Long term (current) use of aspirin

== ENCOUNTER → 2017-12-23 | Outpatient (CLI) | payer OTHER | LOC: M.ULTRA 11:00 | DX: G45.9 Transient cerebral ischemic attack, unspecified (principal); E11.9 Type 2 diabetes mellitus without complications; I10 Essential (primary) hypertension; I25.10 Atherosclerotic heart disease of native coronary artery without angina pectoris; Z79.4 Long term (current) use of insulin; Z87.891 Personal history of nicotine dependence ==

== ENCOUNTER → 2018-02-21 | Outpatient (CLI) | payer OTHER ==
[~2018-02-21] VITALS: Ht 160 cm; Wt 70.3 kg
[2018-02-21 12:37] LABS: HEMATOCRIT 39.6 % (37.0-47.0); HEMOGLOBIN 12.9 gm/dL (12.0-15.0); MCH 29.3 pg (26.0-34.0); MCHC 32.5 g/dL (28.0-37.0); MCV 90.3 fL (80.0-100.0); MPV 8.5 fl. (7.2-11.1); RBC 4.39 mil/uL (4.20-5.00); RDW-CV 13.3 % (10.5-14.5); WBC 12.9 thou/uL (4.0-11.0)
[2018-02-21 12:43] VITALS: BP 127/62; BP 130/55
[2018-02-21 12:46] LABS: CALCIUM 9.1 mg/dL (8.5-10.1); CREATININE 0.7 mg/dL (0.6-1.3); POTASSIUM 4.1 mmol/L (3.5-5.1)
[2018-02-21 12:48] LABS: INR 0.9; PROTIME 9.7 Seconds (9.20-11.50)
[2018-02-21 15:00] VITALS: BP 126/47
[2018-02-21 15:15] VITALS: BP 125/89
[2018-02-21 16:12] VITALS: BP 134/87
--- NOTE | 2018-02-23 08:08 | OP ---
[address] [address] OPERATIVE REPORT Name: KATIE ZAMORA [id number] Admission: 02/21/18 Attend Phys: Joe Jarvis DO Discharge: Date of : 47 Report #: [id number] THIS REPORT FOR: //name// CC: Joe Garcia DATE OF SERVICE: 02/21/2018 PREOPERATIVE DIAGNOSIS: Severe peripheral vascular disease with right lower extremity rest pain. POSTOPERATIVE DIAGNOSIS: Severe peripheral vascular disease with right lower extremity rest pain. OPERATION: 1. Ultrasound-guided access of left common femoral artery. 2. Aortoiliofemoral angiogram. 3. Third order selective right lower extremity angiogram. 4. Right superficial femoral artery angioplasty and stent. 5. Left lower extremity angiogram through the left femoral catheter. SURGEON: Joe Jarvis DO. SHOT PEENING OPERATOR: MEHDI Glez. ANESTHESIA: Sedation with local. ESTIMATED BLOOD LOSS: 25 mL. FLUIDS: 200 crystalloid. URINE OUTPUT: None. SPECIMENS: None. IMPLANTS: A 6 x 200 LifeStent in the right SFA. COMPLICATIONS: None. FINDINGS: Ultrasound demonstrated left common femoral artery to be soft and compressible, some mild posterior wall plaque, but suitable for access. Initial aortogram demonstrated patent bilateral renal arteries, infrarenal aorta, bilateral common internal and external iliac arteries with just some mild atherosclerotic disease, patent right common femoral and deep femoral arteries without significant stenosis. The right superficial femoral artery was occluded in the mid portion with reconstitution at the adductor hiatus. Popliteal artery [address] [address] OPERATIVE REPORT Name: KATIE ZAMORA Room: [facility]#: [id number] Admission: 02/21/18 Attend Phys: Joe Jarvis DO Discharge: Date of : 47 Report #: [id number] was patent without really significant stenosis. She had 3-vessel runoff into the foot, primarily through the posterior tibial, her anterior tibial and peroneal were diminutive vessels. Following angioplasty and stent of the right SFA occlusion she had samaritan of inline flow with really no residual stenosis. The left common femoral, deep femoral artery and superficial femoral artery were all patent. She had a moderate to moderately severe stenosis at the adductor hiatus. Popliteal artery was patent without significant stenosis and really a diminutive 3-vessel runoff into the foot, primarily through the anterior tibial. CLINICAL HISTORY: The patient is a 73-year-old woman who had previously undergone right lower extremity intervention, but has developed recurrent rest pain with an RANGEL of 0.18. Recommendation was made for arteriogram and intervention. DETAILS OF PROCEDURE: After informed consent was obtained, the patient was taken to the operating room and placed on the OR bed in supine position. She was administered sedation by the nurse at my discretion. The bilateral groins were prepped and draped in the usual sterile fashion. A full timeout was performed identifying correct patient and procedure. Next, the skin and subcutaneous tissues of left groin were anesthetized with lidocaine anesthetic. The common femoral artery was accessed using ultrasound guidance with a micropuncture needle. These ultrasound images were preserved. Using Seldinger technique, a microwire and microsheath were placed, ultimately upsized to a 6-Fijian sheath over Glidewire Advantage. I then passed a flush catheter in the infrarenal aorta and performed the aortoiliofemoral angiogram with the findings noted above. I then obtained up and over access across the bifurcation, positioned the catheter in the right common femoral artery and performed a selective right lower extremity angiogram with findings noted above. I administered 7000 units of intravenous heparin and exchanged out for a 6-Fijian up and over sheath. Then using combination of Glidewire Advantage and seeker catheter, I was able to navigate across the superficial femoral artery occlusion and followup imaging confirmed intraluminal position within the distal popliteal artery. The wire was replaced and then I angioplastied the SFA with a 4 mm Ultraverse balloon over 2 inflations and the followup imaging demonstrated a flow limiting dissection. Therefore, the artery was stented with a 6 x 200 LifeStent and this was postdilated with a 5 mm balloon. Followup imaging demonstrated samaritan of inline flow through the SFA without any residual stenosis. Satisfied with the result, I then pulled the sheath back and positioned in the left external iliac artery. I then performed the runoff angiogram in the left lower extremity with the findings noted above. I then deployed a 6-Fijian Mynx closure device in standard fashion, partially reversed the heparin with 40 mg protamine. Manual pressure was held for 10 minutes. Once hemostasis was ensured, sterile dressing was applied. [place] [address] OPERATIVE REPORT Name: KATIE ZAMORA [id number] Admission: 02/21/18 Attend Phys: Joe Jarvis DO Discharge: Date of : 47 Report #: [id number] and instrument counts reported as correct x 2. She tolerated the procedure well and transferred to recovery in stable condition. <ELECTRONICALLY SIGNED> By: Joe Jarvis DO 02/23/18 0808 1412 1527Abenny Jarvis DO /nt
== END | disposition home or self-care (01) ==
LOC: M.INT 02-16 13:30
PROVIDERS: Surgery
DX: I70.221 Atherosclerosis of native arteries of extremities with rest pain, right leg (principal); I10 Essential (primary) hypertension; E11.69 Type 2 diabetes mellitus with other specified complication; E11.65 Type 2 diabetes mellitus with hyperglycemia; E11.42 Type 2 diabetes mellitus with diabetic polyneuropathy; I25.2 Old myocardial infarction; F32.9 Major depressive disorder, single episode, unspecified; G62.9 Polyneuropathy, unspecified; Z79.4 Long term (current) use of insulin; Z95.5 Presence of coronary angioplasty implant and graft; Z96.652 Presence of left artificial knee joint; Z79.899 Other long term (current) drug therapy; Z98.890 Other specified postprocedural states; Z88.2 Allergy status to sulfonamides; Z79.891 Long term (current) use of opiate analgesic

== ENCOUNTER 2018-04-25 15:56 | Emergency (ER) | payer OTHER ==
[~2018-04-25] VITALS: Ht 157.5 cm; Wt 70.8 kg
[~2018-04-25 15:56] MED LIST changes: -CARVEDILOL6.25 MG PO; +COREG6.25 MG PO
[2018-04-25 17:06] LABS: ABSOLUTE EOSINOPHILS 0.5 thou/uL (0.0-0.7); ABSOLUTE LYMPHOCYTES 1.8 thou/uL (0.8-5.3); ABSOLUTE MONOCYTES 0.9 thou/uL (0.0-1.2); ABSOLUTE NEUTROPHILS 10.3 thou/uL (1.6-8.1); BASOPHILS 0.3 %; EOSINOPHILS 3.4 %; HEMOGLOBIN 12.2 gm/dL (12.0-15.0); LYMPHOCYTES 13.1 %; MCH 29.8 pg (26.0-34.0); MCHC 32.9 g/dL (28.0-37.0); MCV 90.4 fL (80.0-100.0); MONOCYTES 6.9 %; MPV 7.5 fl. (7.2-11.1); NUCLEATED RBCS 0 /100WBC; PLATELET COUNT* 339 thou/uL (150-400); POLYS 76.3 %; RDW-CV 13.2 % (10.5-14.5); WBC 13.6 thou/uL (4.0-11.0)
[2018-04-25 17:14] LABS: CALCIUM 8.9 mg/dL (8.5-10.1); CREATININE 0.9 mg/dL (0.6-1.3); POTASSIUM 4.4 mmol/L (3.5-5.1)
[2018-04-25 17:16] LABS: APTT 26.4 Seconds (25.0-31.3); INR 0.9; PROTIME 9.7 Seconds (9.20-11.50)
[2018-04-25 17:19] LABS: TOTAL BILIRUBIN 0.4 mg/dL (<0.1-1.0); TOTAL PROTEIN 6.8 g/dL (6.4-8.2)
[2018-04-25] MEDS ORDERED: DOXYCYCLINE 10100 MG PO ×2 (18:20)
[2018-04-25] MEDS ORDERED: NORCO 5-325 TA1 EACH PO ×2 (18:36)
[2018-04-25 19:39] VITALS: BP 145/60
== END 2018-04-25 19:41 | disposition home or self-care (01) ==
LOC: M.ERS 15:56
PROVIDERS: Family Medicine
DX: S02.91XA Unspecified fracture of skull, initial encounter for closed fracture (principal); S01.81XA Laceration without foreign body of other part of head, initial encounter; S63.591A Other specified sprain of right wrist, initial encounter; L02.411 Cutaneous abscess of right axilla; I10 Essential (primary) hypertension; E11.40 Type 2 diabetes mellitus with diabetic neuropathy, unspecified; Z87.891 Personal history of nicotine dependence; Z88.8 Allergy status to other drugs, medicaments and biological substances; Z88.5 Allergy status to narcotic agent; Z88.1 Allergy status to other antibiotic agents; Z88.2 Allergy status to sulfonamides; Z96.652 Presence of left artificial knee joint; Z90.49 Acquired absence of other specified parts of digestive tract; Z90.89 Acquired absence of other organs; Z95.5 Presence of coronary angioplasty implant and graft; Z79.4 Long term (current) use of insulin; W01.198A Fall on same level from slipping, tripping and stumbling with subsequent striking against other object, initial encounter; Y92.002 Bathroom of unspecified non-institutional (private) residence as the place of occurrence of the external cause; Y93.89 Activity, other specified; Y99.8 Other external cause status

== ENCOUNTER 2018-04-28 12:26 | Inpatient (IN) | payer OTHER ==
[~2018-04-28] VITALS: Ht 157.5 cm; Wt 69.4 kg
[~2018-04-28 12:26] MED LIST changes: +DOXYCYCLINE 10100 MG PO; +NORCO 5-325 TA1 EACH PO
[2018-04-28 12:47] VITALS: BP 156/60
[2018-04-28 14:00] LABS: HEMATOCRIT 37.4 % (37.0-47.0); HEMOGLOBIN 12.2 gm/dL (12.0-15.0); MCH 29.4 pg (26.0-34.0); MCHC 32.6 g/dL (28.0-37.0); MCV 90.1 fL (80.0-100.0); MPV 7.7 fl. (7.2-11.1); NUCLEATED RBCS 0 /100WBC; RBC 4.15 mil/uL (4.20-5.00); WBC 16.2 thou/uL (4.0-11.0)
[2018-04-28 14:06] LABS: APTT 25.6 Seconds (25.0-31.3)
[2018-04-28 14:12] LABS: ANION GAP 11 mmol/L (7-16); BUN 24 mg/dL (7-18); CALCIUM 9.3 mg/dL (8.5-10.1); CHLORIDE 97 mmol/L (98-107); CO2 25 mmol/L (21-32); CREATININE 1.1 mg/dL (0.6-1.3); GLUCOSE 379 mg/dL (70-99); PLATELET COUNT* 417 thou/uL (150-400); POTASSIUM 4.1 mmol/L (3.5-5.1); SODIUM 133 mmol/L (136-145)
[2018-04-28 14:18] LABS: ALBUMIN 3.1 g/dL (3.4-5.0); ALKALINE PHOSPHATASE 192 U/L (46-116); LIPASE 44 U/L (73-393); NT-PRO BRAIN NAT PEPTIDE 446 pg/mL (<300); SGOT 14 U/L (15-37); SGPT 16 U/L (30-65); TOTAL BILIRUBIN 0.5 mg/dL (<0.1-1.0); TROPONIN-I LEVEL <0.06 ng/mL (<0.06)
[2018-04-28 14:29] LABS: ABSOLUTE EOSINOPHILS 0.2 thou/uL (0.0-0.7); ABSOLUTE LYMPHOCYTES 0.6 thou/uL (0.8-5.3); ABSOLUTE MONOCYTES 0.5 thou/uL (0.0-1.2); ABSOLUTE NEUTROPHILS 14.9 thou/uL (1.6-8.1); PLATELET ESTIMATE INCREASED; TOXIC GRANULATION 1+
[2018-04-28 14:30] LABS: MICROCYTES 1+
[2018-04-28 15:09] LABS: URINE BILIRUBIN NEGATIVE (Negative); URINE BLOOD 2+ (Negative); URINE CLARITY CLEAR; URINE COLOR YELLOW; URINE GLUCOSE-RANDOM 3+ (Negative); URINE LEUKOCYTES-REFLEX NEGATIVE (Negative); URINE NITRITE-REFLEX NEGATIVE (Negative); URINE PROTEIN NEGATIVE (Negative); URINE UROBILINOGEN 0.2 E.U./dl (0.2-1.0)
[2018-04-28 15:11] LABS: URINE KETONES 3+ (Negative)
[2018-04-28 15:23] LABS: INFLUENZA A ANTIGEN None Detected (None Detect); INFLUENZA B ANTIGEN None Detected (None Detect)
[2018-04-28 15:47] LABS: HYALINE CASTS 0-3 Few /LPF (None Seen); MUCUS None Seen strn/LPF (None Seen); SQUAMOUS >10 Many /LPF (0-3)
[2018-04-28 15:48] LABS: BACTERIA-REFLEX 1-9 Few /HPF (None Seen); CRYSTALS None Seen /LPF (None Seen); URINE WBC-REFLEX 0-5 Rare /HPF (0-5)
[2018-04-28 20:35] VITALS: BP 144/46
[2018-04-28 21:00] VITALS: BP 171/40
[2018-04-29] VITALS: BP 158/27
[2018-04-29 04:05] LABS: ABSOLUTE BASOPHILS 0.1 thou/uL (0.0-0.2); ABSOLUTE EOSINOPHILS 0.1 thou/uL (0.0-0.7); ABSOLUTE LYMPHOCYTES 1.9 thou/uL (0.8-5.3); ABSOLUTE MONOCYTES 0.7 thou/uL (0.0-1.2); ABSOLUTE NEUTROPHILS 12.8 thou/uL (1.6-8.1); BASOPHILS 0.4 %; EOSINOPHILS 0.5 %; HEMATOCRIT 35.2 % (37.0-47.0); HEMOGLOBIN 11.3 gm/dL (12.0-15.0); MCH 29.3 pg (26.0-34.0); MCHC 32.1 g/dL (28.0-37.0); MCV 91.1 fL (80.0-100.0); MONOCYTES 4.4 %; MPV 7.9 fl. (7.2-11.1); NUCLEATED RBCS 0 /100WBC; PLATELET COUNT* 394 thou/uL (150-400); POLYS 82.7 %; RBC 3.86 mil/uL (4.20-5.00); RDW-CV 13.1 % (10.5-14.5); WBC 15.5 thou/uL (4.0-11.0)
[2018-04-29 04:15] LABS: CALCIUM 8.9 mg/dL (8.5-10.1)
--- NOTE | 2018-04-29 05:43 | NUR ---
PATIENT ARRIVED ON THE FLOOR FROM THE ER ABOUT 2029. PATIENT ADMISSION HISTORY AND ASSESSMENT WAS COMPLETED CHARTED. PATIENT FELL ON WEDNESDAY HAS SIGNIFICANT BRUISING TO RIGHT EYE AND SOME TO THE LEFT AND A LARGE LACERATION ABOVE HER RIGHT EYE WITH STITCHES IN PLACE. PATIENT ALSO HAS A RIGHT AXILLA ABCESS THAT WAS LANCED ON WEDNESDAY DRESSING WAS CHANGED AND PICTURES WERE PLACED ON THE CHART. BLOOD SUGARS HAVE BEEN RUNNING IN THE 5OO'S AT HOME PATIENT ADMITS TO NOT TAKING INSULIN SHE SHOULD. ACCUCHECK WAS 378 AT BEDTIME 35 UNITS OF LANTUS WAS GIVEN. IV FLUIDS WERE STARTED AT 50 ML/HR AND IV VANC WAS GIVEN ORDERED. WILL CONTINUE TO MONITOR.
[2018-04-29 09:47] VITALS: BP 142/42
--- NOTE | 2018-04-29 10:22 | EKG ---
[place] [address] ELECTROCARDIOGRAM REPORT Name: KATIE ZAMORA Room: [address] ADM IN M.R.#: [id number] Admission: 04/28/18 Attend Phys: Alli Salter MD Discharge: Date of : 47 Report #: [id number] THIS REPORT FOR: //name// [facility] ED Test Date: 2018-04-28 Test Time: 13:31:33 Pat Name: KATIE ZAMORA Department: Room: [facility] Gender: F Sat Instructor: Ani WARREN : 1945 Requested By: Claudia Hicks Order Number: [id number] MD: Simon Collier Measurements Intervals [place] Rate: 95 P: 66 VT: 152 QRS: 30 QRSD: 82 T: -31 QT: 363 QTc: 457 Interpretive Statements Sinus rhythm Probable left atrial enlargement Nonspecific T abnormalities, lateral leads Minimal ST elevation, anterior leads Baseline wander in lead(s) V6 Compared to ECG 08/30/2017 18:10:27 ST (T wave) deviation now present T-wave abnormality still present Electronically Signed On 04-29-2018 10:22:40 FURNITURE PACKER by Simon Collier [email or web address] <ELECTRONICALLY SIGNED> By: Simon Collier MD, FACC 04/29/18 1022 1331 1331 Simon Collier MD, FAC /EPI
[2018-04-29 16:00] VITALS: BP 109/44
--- NOTE | 2018-04-29 18:07 | NUR ---
PATIENT IS ALERT AND ORIENTED, VERY PLEASANT. UP STAND BY TO THE RESTROOM. APPETITE IS GOOD TODAY. VISITORS AT BEDSIDE MOST OF THE DAY. NO COMPLAINTS OF PAIN TODAY. ABCESS PACKED AND DRESSED TODAY AT BEDSIDE BY SURGEON PATIENT TOLERATED WELL. CALL LIGHT IS IN REACH, WILL CONTINUE TO MONITOR.
[2018-04-29 20:00] VITALS: BP 139/55
[2018-04-30 04:13] LABS: HEMATOCRIT 32.5 % (37.0-47.0); HEMOGLOBIN 11.1 gm/dL (12.0-15.0); MCH 30.4 pg (26.0-34.0); MCV 89.3 fL (80.0-100.0); MPV 7.9 fl. (7.2-11.1); RBC 3.64 mil/uL (4.20-5.00); RDW-CV 13.2 % (10.5-14.5); WBC 9.4 thou/uL (4.0-11.0)
[2018-04-30 04:33] LABS: CALCIUM 8.5 mg/dL (8.5-10.1); CREATININE 0.9 mg/dL (0.6-1.3)
[2018-04-30 04:34] LABS: POTASSIUM 3.5 mmol/L (3.5-5.1)
--- NOTE | 2018-04-30 06:07 | NUR ---
PROGRESSING TOWARDS GOALS, RESTING QUIETLY WITH EYES CLOSED MOST OF NOC, EASILY AROUSABLE TO VERBAL STIMULI, UP TO BR WITH X1 ASSIST AND SLOW STEADY GAIT, DENIES DIZZYNESS, ID MD HERE THIS AM TO ASSESS PT, VERBAL ORDERS RECEIVED TO DC VANCOMYCIN IVPB AND TO START CEFAZOLIN 1GM IVPB [id number], FIRST DOSE CEFAZOLIN GIVEN THIS AM PER ORDER, NO S/S OF ADVERSE EFFECTS FROM IV ABT NOTED. HYDROCODONE 5/325MG PO GIVEN X1 PER REQUEST AND C/O BACK PAIN, PT VERBALIZED HYDROCODONE EFFECTIVE FOR PAIN MANAGEMENT. BED ALARM ON FOR SAFETY. USING CALL LIGHT FOR NEEDS.
[2018-04-30 07:30] VITALS: BP 152/58
--- NOTE | 2018-04-30 16:33 | NUR ---
PATIENT UP IN CHAIR THIS MORNING, UTILIZING WALKER WITH STEADY GAIT NOTED. PATIENT ASSISTED IN AMBULATING HALLS. IVF AND SCHED ABX REMAIN. SURGERY HERE THIS AFTERNOON AND PACKING CHANGED TO RIGHT AXILLAE. ORDERS FOR CT FACIAL BONES PER SURGERY, AWAITING RESULTS. NO COMPLAINTS OF PAIN. INSULIN GIVEN WITH MEALS ORDERED.
[2018-04-30 16:44] VITALS: BP 124/59
[2018-04-30 22:00] VITALS: BP 119/51
--- NOTE | 2018-05-01 05:04 | NUR ---
PATIENT HAS SLEPT DURING LATER PART OF THE SHIFT. SOMC COMPLAINTS OF BACK PAIN THAT IS CONTROLLED WITH ORAL PAIN MEDICATION. UP WITH STAND BY ASSIST TO THE RESTROOM. CALL LIGHT IS IN REACH, WILL CONTINUE TO MONITOR.
[2018-05-01 09:40] VITALS: BP 157/54
[2018-05-01 15:56] VITALS: BP 157/64
--- NOTE | 2018-05-01 16:53 | NUR ---
7357 PT DISCHARGED VIA WHEELCHAIR BY NURSING STAFF, ACCOMPANIED BY HER DAUGHTER. PT AND DAUGHTER GIVEN RX'S AND MEDICATION INFORMATION. EXPLAINED NEED FOR FOLLOW UP WITH ENT FOR FACIAL TRAUMA AND SUTURE REMOVAL, DR. ORTIZ' NUMBER WAS PROVIDED, AND THEY EXPRESSED UNDERSTANDING.
--- NOTE | 2018-05-02 07:43 | CON ---
[address] [address] CONSULTATION Name: KATIE ZAMORA Room: [address] IN M.R.#: [id number] Admission: 04/28/18 Attend Phys: Alli Salter MD Discharge: 05/01/18 Date of : 47 Report #: [id number] THIS REPORT FOR: //name// CC: Alli Garcia DATE OF SERVICE: 04/29/2018 ATTENDING PHYSICIAN: Dr. Salter. REASON FOR EVALUATION: Right axillary skin and soft tissue infection with abscess/cellulitis. HISTORY OF PRESENT ILLNESS: Chart reviewed, the patient examined. This is a 73-year-old woman with fairly extensive medical history who presented to the Emergency Room complaining of progressive weakness. Had sustained an injury as a result of fall and laceration over her right aspect of her forehead. This required suturing. She has been noted to be hyperglycemic as well and per the evaluation, was found to have an inflammatory subcutaneous mass, right axilla. It is somewhat unclear, but states it has been there for several months, underwent operative debridement. Blood cultures thus far growing Staphylococcus species, has started empiric therapy with vancomycin. She is not overtly toxic at this point. She is at least mildly encephalopathic. Denies significant pulmonary or gastrointestinal related complaints. She does have diminished appetite. No clear evidence of fevers. She does admit to some degree of chills. ALLERGIES: TO SULFA, PERHAPS MORE CONSISTENT WITH ADVERSE DRUG EFFECT, STATINS, MORPHINE, CODEINE, ERYTHROMYCIN, FOSAMAX, BRILINTA. CURRENT MEDICATIONS: Include insulin, vancomycin, duloxetine, gabapentin, ezetimibe, prasugrel, isosorbide mononitrate, cholecalciferol, lamotrigine, aspirin, carvedilol, insulin lispro, p.r.n. analgesics and antiemetics. PAST MEDICAL HISTORY: Diabetes mellitus type 2, insulin requiring, complicated by vasculopathy including atherosclerotic coronary artery disease, previous acute myocardial infarction with stenting x 2 on at least 2 occasions, hypertension, seizure disorder, peripheral neuropathy, previous tonsillectomy and peripheral vascular disease with right lower extremity stenting, previous appendectomy, left total knee arthroplasty. SOCIAL HISTORY: Nonsmoker, no ethanol. FAMILY HISTORY: Noncontributory. REVIEW OF SYSTEMS: Ten point review of systems otherwise [place] [address] CONSULTATION Name: KATIE ZAMORA Room: [address]#: [id number] Admission: 04/28/18 Attend Phys: Alli Salter MD Discharge: 05/01/18 Date of : 47 Report #: [id number] exception noted in above history of present illness. PHYSICAL EXAMINATION: Nhbd-uc-qzdvqqix distress. She has got a severe contused area over the right side of her upper head including the periorbital region. There is an incision with results of the laceration sutured close, some mild degree of inflammation noted. HEENT: Extraocular muscles intact. NECK: Supple. VITAL SIGNS: Temperature 98.3, pulse 100, respirations 16, blood pressure 142/42. SKIN: Warm, dry. LUNGS: Diminished, still is clear to auscultation. HEART: Regular. Borderline tachycardic, likely a soft systolic murmur. Right axilla has a dressing in place. This was evaluated, has moderate degree of surface inflammation. There is a wick in place. There is a mild amount of drainage at this point. It is palpably tender at the margins. ABDOMEN: Soft, nontender, nondistended. EXTREMITIES: No cyanosis. GENITOURINARY: Deferred. RECTAL: Deferred. LABORATORY DATA: Culture confirmed to have Staphylococcus aureus, awaiting susceptibilities from the site. Blood cultures sterile thus far. CBC: White count of 15.5, H and H 11.3/35.2, platelets of 394. Electrolytes: Sodium 135, potassium 5, chloride 99, bicarbonate is 23, anion gap of 13. BUN and creatinine 19 and 1.0, glucose of 410. Influenza antigen was negative. Urinalysis 0-5 white cells, 1-9 bacteria. Electrolytes: Sodium 133, potassium 4.1, chloride 97, bicarbonate is 25, anion gap of 11, BUN and creatinine 24 and 1.1. Previously LFTs, alk phos notable elevated at 192, otherwise unremarkable. Total protein 7.0. Albumin of 3.1, estimated GFR 49. Chest x-ray, no acute process. Lactic acid 1.5. ASSESSMENT AND PLAN: Right axillary skin and soft tissue infection with abscess secondary to Staphylococcus aureus. We will continue the vancomycin pending the susceptibility testing. At this point, she is opened and drained. Continue packing the wound, allowing it to heal from the inside out and to monitor expectantly, add incentive spirometry. At this point, she seems fairly lucid, monitor expectantly. <ELECTRONICALLY SIGNED> By: Lazaro Rivera MD 05/02/18 0743 1432 [id number] Rivera MD /nt
--- NOTE | 2018-05-02 10:01 | NUR ---
ORDERS RECEIVED, HOWEVER P.T. DC'ED FROM [facility] PRIOR TO P.T. EVALUATION AND TREATMENT. JOSE CHRISTIAN, MPT
== END 2018-05-01 16:45 | disposition home or self-care (01) | DRG 85 ==
LOC: M.ERS 12:26 → M.3W 15:09 → M.TBA-ER 15:09 → M.3W 20:55
PROVIDERS: Nurse Practitioner Family; ADMIT Family Medicine
DX: S02.19XA Other fracture of base of skull, initial encounter for closed fracture (principal); E11.00 Type 2 diabetes mellitus with hyperosmolarity without nonketotic hyperglycemic-hyperosmolar coma (NKHHC); L02.411 Cutaneous abscess of right axilla; L03.111 Cellulitis of right axilla; N17.9 Acute kidney failure, unspecified; Z96.652 Presence of left artificial knee joint; F32.9 Major depressive disorder, single episode, unspecified; G40.909 Epilepsy, unspecified, not intractable, without status epilepticus; S09.93XA Unspecified injury of face, initial encounter; E11.40 Type 2 diabetes mellitus with diabetic neuropathy, unspecified; I25.10 Atherosclerotic heart disease of native coronary artery without angina pectoris; E11.22 Type 2 diabetes mellitus with diabetic chronic kidney disease; E11.51 Type 2 diabetes mellitus with diabetic peripheral angiopathy without gangrene; I12.9 Hypertensive chronic kidney disease with stage 1 through stage 4 chronic kidney disease, or unspecified chronic kidney disease; B95.61 Methicillin susceptible Staphylococcus aureus infection as the cause of diseases classified elsewhere; E11.65 Type 2 diabetes mellitus with hyperglycemia; F39 Unspecified mood [affective] disorder; N18.2 Chronic kidney disease, stage 2 (mild); Z79.82 Long term (current) use of aspirin; Z90.49 Acquired absence of other specified parts of digestive tract; I25.2 Old myocardial infarction; Z79.4 Long term (current) use of insulin; Z95.5 Presence of coronary angioplasty implant and graft; Z88.6 Allergy status to analgesic agent; Z88.1 Allergy status to other antibiotic agents; Z88.2 Allergy status to sulfonamides; Z88.8 Allergy status to other drugs, medicaments and biological substances; Z87.891 Personal history of nicotine dependence; Z79.899 Other long term (current) drug therapy; W18.39XA Other fall on same level, initial encounter; Y93.89 Activity, other specified; Y92.89 Other specified places as the place of occurrence of the external cause; Y99.8 Other external cause status

== ENCOUNTER → 2018-07-19 | Outpatient (CLI) | payer OTHER ==
[~2018-07-19] VITALS: Ht 160 cm; Wt 70.3 kg
[2018-07-19] VITALS (9 sets, daily range): BP systolic 112–182; BP diastolic 44–74
[2018-07-19 09:27] LABS: HEMATOCRIT 39.8 % (37.0-47.0); HEMOGLOBIN 13.2 gm/dL (12.0-15.0); MCH 29.3 pg (26.0-34.0); MCV 88.7 fL (80.0-100.0); RBC 4.49 mil/uL (4.20-5.00); RDW-CV 13.5 % (10.5-14.5); WBC 9.3 thou/uL (4.0-11.0)
[2018-07-19 09:49] LABS: CALCIUM 9.1 mg/dL (8.5-10.1); CREATININE 0.9 mg/dL (0.6-1.3); POTASSIUM 4.3 mmol/L (3.5-5.1)
[2018-07-19 09:52] LABS: APTT 25.7 Seconds (25.0-31.3); INR 0.9; PROTIME 9.6 Seconds (9.20-11.50)
--- NOTE | 2018-07-20 08:06 | OP ---
[address] [address] OPERATIVE REPORT Name: KATIE ZAMORA [id number] Admission: 07/19/18 Attend Phys: Joe Jarvis DO Discharge: Date of : 47 Report #: [id number] THIS REPORT FOR: //name// CC: Joe Garcia DATE OF SERVICE: 07/19/2018 PREOPERATIVE DIAGNOSIS: Peripheral vascular disease with recurrent superficial femoral artery stenosis. POSTOPERATIVE DIAGNOSIS: Peripheral vascular disease with recurrent superficial femoral artery stenosis. OPERATIONS: 1. Ultrasound-guided access to the left common femoral artery. 2. Aortoiliofemoral angiogram. 3. Third order selective right lower extremity angiogram. 4. Right SFA angioplasty and stent. 5. Right popliteal artery angioplasty. SURGEON: Joe Jarvis DO. DRIER TAKE OFF TENDER: , PGY2 and MEHDI Valenzuela. ANESTHESIA: Sedation with local for about 45 minutes on my discretion. COMPLICATIONS: None. IMPLANTS: A 6 x 60 LifeStent in the right proximal SFA. FINDINGS: On initial aortoiliofemoral angiogram, the patient had patent bilateral renal arteries, infrarenal aorta, bilateral common internal and external iliac arteries with really no significant atherosclerotic disease. Patent right common femoral and deep femoral artery without significant stenosis. Her proximal right superficial femoral artery had high-grade stenosis within the stent, previously placed right SFA stent. There was a focal high-grade stenosis and just some mild diffuse stenosis throughout the remainder of the stent. The above-knee popliteal artery had zulhetns-hc-wocakbbxsn severe stenosis distal to the stent. The remainder of the popliteal artery was patent, without significant stenosis. She had 3-vessel runoff into the foot, without significant stenosis. Following angioplasty and stenting of the right SFA and popliteal, there was much improved flow, with minimal residual stenosis. CLINICAL HISTORY: The patient is a 73-year-old woman with known peripheral vascular disease. She has had some recurrence of [place] [address] OPERATIVE REPORT Name: SERAKATIE SILVEIRA Room: [facility]#: [id number] Admission: 07/19/18 Attend Phys: Joe Jarvis DO Discharge: Date of : 47 Report #: [id number] claudication symptoms. Non-invasive imaging demonstrated what appeared to be high-grade in-stent restenosis in the proximal SFA. She was recommended for angiogram for primary cystic patency. DESCRIPTION OF PROCEDURE: After informed consent was obtained, the patient was taken to the operating room and placed on the OR bed in supine position. She was administered sedation by the nurse at my discretion. All vitals monitored appropriately for about 45 minutes. Using ultrasound guidance, the left common femoral artery was identified. Skin and subcutaneous tissues were anesthetized with lidocaine anesthetic. The common femoral artery was accessed with a micropuncture needle. These ultrasound images were preserved. Using Seldinger technique, a microwire mesh and microsheath were placed, ultimately upsized to a 6-Armenian sheath over a Bentson wire. Advanced the flush catheter into the infrarenal aorta and performed the aortoiliofemoral angiogram with findings noted above. I then obtained up and over access across the bifurcation, positioned the catheter in the right common femoral artery and performed a selective right lower extremity angiogram with findings noted above. I administered 5000 units of intravenous heparin and exchanged out for a 6-Armenian up and over sheath. Used a combination of Glidewire Advantage and seeker catheter to navigate across the SFA, position of the wire in the distal popliteal artery. Followup imaging confirmed intraluminal position within the artery. I then serially angioplastied the SFA and popliteal artery with a 5-mm Kaufman balloon. There was still moderate stenosis within the proximal SFA. Therefore, the stent was overlapped and extended up to the SFA origin. This was postdilated with a 5-mm balloon. Followup imaging demonstrated excellent result, with really minimal residual stenosis. Satisfied with the result, the wire and the sheath were backed into the left external iliac artery and performed the angiogram through the sheath to confirm access position. I exchanged out for the short 7-Armenian sheath and deployed a 6-Armenian Mynx closure device in a standard fashion. Manual pressure was held for 10 minutes. Once hemostasis was ensured, a sterile dressing was applied. All sponge, sharp instrument counts reported correct x 2. She tolerated the procedure well and was transferred to recovery in stable condition. <ELECTRONICALLY SIGNED> By: Joe Jarvis DO 07/20/18 0806 1045 [id number] Jarvis DO /nt
== END | disposition home or self-care (01) ==
LOC: M.INT 08:49
PROVIDERS: Surgery
DX: I70.211 Atherosclerosis of native arteries of extremities with intermittent claudication, right leg (principal); I10 Essential (primary) hypertension; E11.69 Type 2 diabetes mellitus with other specified complication; G62.9 Polyneuropathy, unspecified; I25.2 Old myocardial infarction; Z90.49 Acquired absence of other specified parts of digestive tract; Z98.890 Other specified postprocedural states; Z96.652 Presence of left artificial knee joint; Z95.5 Presence of coronary angioplasty implant and graft; Z88.2 Allergy status to sulfonamides; Z88.6 Allergy status to analgesic agent; Z88.8 Allergy status to other drugs, medicaments and biological substances; Z79.4 Long term (current) use of insulin; Z79.82 Long term (current) use of aspirin; Z79.899 Other long term (current) drug therapy; Z79.01 Long term (current) use of anticoagulants

== ENCOUNTER → 2018-09-06 | Outpatient (CLI) | payer OTHER ==
[~2018-09-06] VITALS: Ht 160 cm; Wt 73.9 kg
[2018-09-06 12:29] LABS: ABSOLUTE BASOPHILS 0.1 thou/uL (0.0-0.2); ABSOLUTE EOSINOPHILS 0.2 thou/uL (0.0-0.7); ABSOLUTE LYMPHOCYTES 1.6 thou/uL (0.8-5.3); ABSOLUTE MONOCYTES 0.8 thou/uL (0.0-1.2); ABSOLUTE NEUTROPHILS 7.7 thou/uL (1.6-8.1); BASOPHILS 0.6 %; EOSINOPHILS 1.8 %; HEMATOCRIT 39.1 % (37.0-47.0); HEMOGLOBIN 12.5 gm/dL (12.0-15.0); LYMPHOCYTES 15.9 %; MCH 28.3 pg (26.0-34.0); MCV 88.5 fL (80.0-100.0); MONOCYTES 7.6 %; MPV 8.2 fl. (7.2-11.1); NUCLEATED RBCS 0 /100WBC; PLATELET COUNT* 281 thou/uL (150-400); POLYS 74.1 %; RBC 4.42 mil/uL (4.20-5.00); RDW-CV 14.3 % (10.5-14.5); WBC 10.4 thou/uL (4.0-11.0)
[2018-09-06 12:35] VITALS: BP 142/59
[2018-09-06 12:50] LABS: CALCIUM 8.7 mg/dL (8.5-10.1); CREATININE 0.9 mg/dL (0.6-1.3); POTASSIUM 4.8 mmol/L (3.5-5.1)
[2018-09-06 14:39] VITALS: BP 147/60
[2018-09-06 15:00] VITALS: BP 144/54
[2018-09-06 15:15] VITALS: BP 136/56
[2018-09-06 15:30] VITALS: BP 159/59
[2018-09-06 16:00] VITALS: BP 148/71
--- NOTE | 2018-09-07 07:59 | OP ---
[address] [address] OPERATIVE REPORT Name: KATIE ZAMORA [id number] Admission: 09/06/18 Attend Phys: Joe Jarvis DO Discharge: Date of : 47 Report #: [id number] THIS REPORT FOR: //name// CC: Joe Garcia DATE OF SERVICE: 09/06/2018 PREOPERATIVE DIAGNOSES: Peripheral vascular disease with disabling left lower extremity claudication. POSTOPERATIVE DIAGNOSES: Peripheral vascular disease with disabling left lower extremity claudication. OPERATION: 1. Ultrasound-guided access to the right common femoral artery. 2. Aortoiliofemoral angiogram. 3. Third order selective left lower extremity angiogram. 4. Left superficial femoral and popliteal artery angioplasty. 5. Left tuboperitoneal trunk angioplasty. SURGEON: Joe Jarvis DO. HONEY EXTRACTOR: MEHDI Glez. ANESTHESIA: Sedation with local for about 40 minutes at my discretion. Monitoring all appropriate vital signs. FLUIDS: About 200 crystalloid. URINE OUTPUT: None. SPECIMENS: None. COMPLICATIONS: None. IMPLANTS: None. FINDINGS: An aortogram demonstrated a patent infrarenal aorta, bilateral renal arteries, patent bilateral common, internal, and external iliac arteries with just very mild atherosclerotic disease. Patent left common femoral, deep femoral artery without significant stenosis, left superficial femoral artery had some mild diffuse disease of the proximal portion, had a severe stenosis in the distal portion and had adductor hiatus. The popliteal artery is patent with just some mild stenosis. The tibioperoneal trunk had a moderately severe stenosis. The anterior tibial arteries primary runoff into the foot. The [address] [address] OPERATIVE REPORT Name: KATIE ZAMORA Room: [facility]#: [id number] Admission: 09/06/18 Attend Phys: Joe Jarvis DO Discharge: Date of : 47 Report #: [id number] posterior tibial artery is chronically occluded. The peroneal artery was patent into the foot. After Angioplasty of the left superficial femoral, popliteal, and tibioperoneal trunk had much improved flow with really minimal residual stenosis, no flow-limiting dissection. Much improved angiographic result. CLINICAL HISTORY: The patient is a 73-year-old woman with known peripheral vascular disease. She has undergone multiple interventions. She has disabling left lower extremity claudication. Presents today for angiogram and intervention. DESCRIPTION OF PROCEDURE: After informed consent was obtained, the patient was taken to the angio suite, placed on the angio bed in supine position. Bilateral groins were prepped and draped in usual sterile fashion. Full timeout was performed identifying correct patient and procedure. Using ultrasound guidance, the right common femoral artery was identified. The skin and subcutaneous tissues were anesthetized with local anesthetic. The artery was accessed with micropuncture needle. The ultrasound images were preserved. Using Seldinger technique, a microwire and microsheath were placed, ultimately upsized to a 6-Danish sheath over a Bentson wire. I passed a flush catheter over the wire and the infrarenal aorta and performed an aortoiliofemoral angiogram with findings noted above. Obtain up and over access across the bifurcation, positioned catheter within the left common femoral artery, performed the third order selective left lower extremity angiogram with findings noted above. At this point, I administered 8000 units of intravenous heparin and exchanged for a 6-Danish up and over sheath. Used a combination of the Seeker catheter and Glidewire Advantage to navigate across the lesions and positioned catheter within the peroneal artery. Followup imaging confirmed intraluminal position. I then angioplastied the tibioperoneal trunk and popliteal artery with 4 mm Ultraverse balloon and then angioplastied the superficial femoral artery with a 5 mm Ultraverse balloon. Followup imaging demonstrated good result with much improved flow through the arterial segments, really no flow-limiting dissection and really minimal residual stenosis. Satisfied with the result, the wire and sheath were backed to the right external iliac artery. I performed an angiogram through the sheath. Confirmed axis position. I then deployed a 6-Danish Mynx closure device in standard fashion. Manual pressure was held for 10 minutes. The heparin was partially reversed with 50 mg of protamine. Once hemostasis was ensured, sterile dressing was applied. All sponge, sharp instrument counts reported correct x 2. She tolerated the procedure well and was transferred to recovery area in stable condition. <ELECTRONICALLY SIGNED> By: Joe Jarvis DO 09/07/18 0759 1426 1538Abenny Jarvis DO /nt
== END | disposition home or self-care (01) ==
LOC: M.RAD 11:25 → M.INT 11:25
PROVIDERS: Surgery
DX: I70.212 Atherosclerosis of native arteries of extremities with intermittent claudication, left leg (principal); Z12.31 Encounter for screening mammogram for malignant neoplasm of breast; I10 Essential (primary) hypertension; E11.10 Type 2 diabetes mellitus with ketoacidosis without coma; I25.2 Old myocardial infarction; G62.9 Polyneuropathy, unspecified; Z98.890 Other specified postprocedural states; Z90.49 Acquired absence of other specified parts of digestive tract; Z96.652 Presence of left artificial knee joint; Z79.899 Other long term (current) drug therapy; Z87.440 Personal history of urinary (tract) infections; Z88.2 Allergy status to sulfonamides; Z88.8 Allergy status to other drugs, medicaments and biological substances; Z79.4 Long term (current) use of insulin

== ENCOUNTER 2018-11-09 11:05 | Emergency (ER) | payer OTHER ==
[~2018-11-09] VITALS: Ht 160 cm; Wt 72.6 kg
[2018-11-09 11:58] LABS: ABSOLUTE EOSINOPHILS 0.1 thou/uL (0.0-0.7); ABSOLUTE LYMPHOCYTES 0.8 thou/uL (0.8-5.3); ABSOLUTE MONOCYTES 0.6 thou/uL (0.0-1.2); ABSOLUTE NEUTROPHILS 6.6 thou/uL (1.6-8.1); BASOPHILS 0.3 %; EOSINOPHILS 0.6 %; HEMOGLOBIN 13.1 gm/dL (12.0-15.0); LYMPHOCYTES 10.3 %; MCH 28.3 pg (26.0-34.0); MCHC 32.1 g/dL (28.0-37.0); MCV 88.4 fL (80.0-100.0); MONOCYTES 6.9 %; MPV 8.3 fl. (7.2-11.1); NUCLEATED RBCS 0 /100WBC; PLATELET COUNT* 226 thou/uL (150-400); POLYS 81.9 %; RBC 4.64 mil/uL (4.20-5.00)
[2018-11-09 12:15] LABS: ANION GAP 7 mmol/L (7-16); BUN 20 mg/dL (7-18); CALCIUM 9.5 mg/dL (8.5-10.1); CHLORIDE 100 mmol/L (98-107); CO2 31 mmol/L (21-32); CREATININE 1.1 mg/dL (0.6-1.3); GLUCOSE 288 mg/dL (70-99); SODIUM 138 mmol/L (136-145)
[2018-11-09 12:20] LABS: ALBUMIN 3.7 g/dL (3.4-5.0); ALKALINE PHOSPHATASE 163 U/L (46-116); LIPASE 34 U/L (73-393); NT-PRO BRAIN NAT PEPTIDE 600 pg/mL (<300); SGOT 25 U/L (15-37); SGPT 27 U/L (30-65); TOTAL BILIRUBIN 0.9 mg/dL (<0.1-1.0); TOTAL PROTEIN 7.5 g/dL (6.4-8.2); TROPONIN-I LEVEL <0.06 ng/mL (<0.06)
[2018-11-09 13:34] LABS: URINE BLOOD TRACE (Negative); URINE CLARITY CLEAR; URINE COLOR YELLOW; URINE GLUCOSE-RANDOM 3+ (Negative); URINE LEUKOCYTES-REFLEX NEGATIVE (Negative); URINE NITRITE-REFLEX NEGATIVE (Negative); URINE PROTEIN TRACE (Negative); URINE SPECIFIC GRAVITY 1.025 (1.005-1.030); URINE UROBILINOGEN 0.2 E.U./dl (0.2-1.0)
[2018-11-09 13:36] LABS: ICTOTEST (BILI CONFIRMATORY) Negative (Negative); URINE BILIRUBIN 1+ (Negative); URINE KETONES 3+ (Negative)
[2018-11-09] MEDS ORDERED: HYDROCODON-ACE1 EAC7 PO (13:42)
[2018-11-09] MEDS ORDERED: COLACE 100 MG100 MG PO (13:42)
[2018-11-09 14:01] VITALS: BP 129/48
--- NOTE | 2018-11-09 14:52 | EKG ---
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1945 Requested By: Jean Hopson Order Number: [id number] MD: Simon Collier Measurements Intervals [place] Rate: 86 P: 79 TX: 159 QRS: 31 QRSD: 79 T: 13 QT: 374 QTc: 448 Interpretive Statements Sinus rhythm Probable left atrial enlargement Compared to ECG 04/28/2018 13:31:33 T-wave abnormality no longer present ST (T wave) deviation no longer present Electronically Signed On 11-09-2018 14:52:11 CDT by Simon Collier [email or web address] <ELECTRONICALLY SIGNED> By: Simon Collier MD, LOCATED WITHIN [facility] 11/09/18 1452 1141 1141 Simon Collier MD, FAC /EPI
== END 2018-11-09 14:02 | disposition home or self-care (01) ==
LOC: M.ERS 11:05
PROVIDERS: Emergency Medicine
DX: M54.31 Sciatica, right side (principal); E11.40 Type 2 diabetes mellitus with diabetic neuropathy, unspecified; Z79.4 Long term (current) use of insulin; R11.2 Nausea with vomiting, unspecified; Z96.653 Presence of artificial knee joint, bilateral; Z90.49 Acquired absence of other specified parts of digestive tract; Z88.5 Allergy status to narcotic agent; Z88.2 Allergy status to sulfonamides; Z88.1 Allergy status to other antibiotic agents; Z88.8 Allergy status to other drugs, medicaments and biological substances; Z87.891 Personal history of nicotine dependence

== ENCOUNTER 2018-12-18 21:01 | Inpatient (IN) | payer OTHER ==
[~2018-12-18] VITALS: Ht 160 cm; Wt 68.9 kg
--- NOTE | ~2018-12-18 | OP ---
[address] [address] OPERATIVE REPORT Name: KATIE ZAMORA Room: [address] IN M.R.#: [id number] Admission: 12/18/18 Attend Phys: Kamari Mullen MD Discharge: Date of : 47 Report #: [id number] THIS REPORT FOR: //name// CC: Kamari Garcia DATE OF SERVICE: 12/19/2018 FAMILY PHYSICIAN: Smooth Garcia DO PREOPERATIVE DIAGNOSIS: Closed intertrochanteric fracture, right hip. POSTOPERATIVE DIAGNOSIS: Closed intertrochanteric fracture, right hip. OPERATIONS PERFORMED: 1. Open reduction and internal fixation with cephalomedullary katelyn, right hip (gamma). 2. Physician directed fluoroscopy under one hour, Dr. Gonzalez. SURGEON: Shravan Gonzalez DO HIGH SPEED OPERATOR: Mehran Timmons DO SECOND ANTISQUEAK FILLER: Salo Rivera DO ANESTHESIA: General. GROSS PATHOLOGY: There was evidence of a closed intertrochanteric fracture of the right hip. IMPLANTS UTILIZED: Victorina gamma nail standard. DESCRIPTION OF PROCEDURE: The patient was brought to the operating room where general anesthetic was administered. Preoperative antibiotics were given. The patient was placed on the operating table. The fracture was reduced in traction, viewed with C-arm and noted to be in acceptable position. Hibiclens scrub and a ChloraPrep, prep were done to the right hip and thigh in the usual manner. The patient was draped in a sterile manner. An incision was then made approximately 2 inches in length at the greater trochanter tip. It was carried down through the skin and subcuticular material down to the tip. An opening hole was made with the awl, the guidewire was inserted down the shaft of the femur, viewed with the C-arm and noted to be in the center of the bone. The femur was then reamed to the area where the katelyn will end to 13 mm and then to 15.5 mm to the lesser trochanter. The gamma katelyn was then inserted over the guidewire to the appropriate depth. The guidewire was removed. Utilizing the guide, an incision was then made down to the bone where [place] [address] OPERATIVE REPORT Name: KATIE ZAMORA Room: [address] IN [facility].#: [id number] Admission: 12/18/18 Attend Phys: Kamari Mullen MD Discharge: Date of : 47 Report #: [id number] inserted into the femoral neck and head. Measurements were taken. The dual reamer was used to ream over the guidewire. The lag screw was then inserted over the guidewire to the appropriate depth. Compression was completed with good reduction of the fracture site. The proximal set screw was then tightened into the lag screw and backed off a quarter of a turn. Utilizing the guide, the distal screw was then inserted across the femur in the usual manner. The inserting device was removed. The C-arm was used intermittently throughout surgery under my direction with final pictures revealed an acceptable position of the fracture site and implant devices. The deep tissues closed with ____ Vicryl suture, subcutaneous with 2-0 Vicryl, and antonio on the skin. The area is anesthetized with Marcaine 0.5% plain, approximately 30 mL. Blood loss was approximately 100 mL. The wound was thoroughly irrigated throughout the entire procedure. Needle and sponge count reported as correct. The patient was transferred to the recovery room in good condition. By: 1651 1938Shravan Gonzalez DO /saurabh
[~2018-12-18 21:01] MED LIST changes: +COLACE 100 MG100 MG PO; +HYDROCODON-ACE1 EAC7 PO
[2018-12-18 21:15] VITALS: BP 173/133
[2018-12-18 22:10] LABS: ABSOLUTE BASOPHILS 0.1 thou/uL (0.0-0.2); ABSOLUTE EOSINOPHILS 0.3 thou/uL (0.0-0.7); ABSOLUTE MONOCYTES 0.8 thou/uL (0.0-1.2); ABSOLUTE NEUTROPHILS 6.7 thou/uL (1.6-8.1); BASOPHILS 0.5 %; EOSINOPHILS 2.5 %; HEMATOCRIT 38.6 % (37.0-47.0); HEMOGLOBIN 12.5 gm/dL (12.0-15.0); LYMPHOCYTES 27.8 %; MCH 29.2 pg (26.0-34.0); MCHC 32.4 g/dL (28.0-37.0); MCV 89.9 fL (80.0-100.0); MONOCYTES 7.3 %; MPV 8.8 fl. (7.2-11.1); NUCLEATED RBCS 0 /100WBC; PLATELET COUNT* 282 thou/uL (150-400); POLYS 61.9 %; RBC 4.29 mil/uL (4.20-5.00); RDW-CV 14.8 % (10.5-14.5); WBC 10.9 thou/uL (4.0-11.0)
[2018-12-18 22:22] LABS: APTT 25.3 Seconds (25.0-31.3); CALCIUM 8.7 mg/dL (8.5-10.1); INR 0.9; POTASSIUM 4.6 mmol/L (3.5-5.1); PROTIME 9.5 Seconds (9.20-11.50)
[2018-12-18 22:27] LABS: ALBUMIN 3.7 g/dL (3.4-5.0); TOTAL BILIRUBIN 0.4 mg/dL (<0.1-1.0); TOTAL PROTEIN 7.1 g/dL (6.4-8.2)
[2018-12-18 23:35] VITALS: BP 179/93
[2018-12-18 23:47] VITALS: BP 158/52
[2018-12-19 04:00] VITALS: BP 127/53
[2018-12-19 07:40] VITALS: BP 162/57
--- NOTE | 2018-12-19 12:02 | EKG ---
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
--- NOTE | 2018-12-19 13:03 | 2DMMODE ---
[place] [address] 2 D/M-MODE ECHOCARDIOGRAM Name: KATIE ZAMORA Room: [address] IN [facility]#: [id number] Admission: 12/18/18 Attend Phys: Kamari Mullen, Discharge: Date of : 47 Date of Service: 12/19/18 1302 Report #: [id number] THIS REPORT FOR: //name// APPROVED REPORT Study performed: 12/19/2018 09:49:58 EXAM: Comprehensive 2D, Doppler, and color-flow Echocardiogram Patient Location: In-Patient Room #: [facility] Status: routine BSA: 1.72 HR: 76 bpm BP: 127/53 mmHg Rhythm: NSR Other Information Study Quality: Good Indications CAD 2D Dimensions IVSd: 13.18 (7-11mm) LVOT Diam: 20.39 (18-24mm) LVDd: 39.38 mm PWd: 10.88 (7-11mm) Ascending Ao: 28.33 (22-36mm) LVDs: 20.95 (25-40mm) Aortic Root: 28.43 mm Volumes Left Atrial Volume (Systole) LA ESV Index: 17.30 mL/m2 Aortic Valve AoV Peak Omega.: 1.55 m/s AO Peak Gr.: 9.64 mmHg LVOT Max P.88 mmHg AO Mean Gr.: 5.91 mmHg LVOT Mean P.52 mmHg LVOT Max V: 1.10 m/s AO V2 VTI: 25.19 cm LVOT Mean V: 0.74 m/s LUIS (VTI): 2.81 cm2 LVOT V1 VTI: 21.66 cm Mitral Valve E/A Ratio: 0.75 MV Decel. Time: 211.34 ms MV E Max Omega.: 0.83 m/[place] [address] 2 D/M-MODE ECHOCARDIOGRAM Name: KATIE ZAMORA Room: [address] IN [facility]#: [id number] Admission: 12/18/18 Attend Phys: Kamari Mullen, Discharge: Date of : 47 Date of Service: 12/19/18 1302 Report #: [id number] PHT: 61.29 ms MVA (PHT): 3.59 cm2 TDI E/Lateral E': 8.30 E/Medial E': 9.22 Medial E' Omega.: 0.09 m/s Lateral E' Omega.: 0.10 m/s Pulmonary Valve PV Peak Omega.: 1.13 m/s PV Peak Gr.: 5.14 mmHg Left Ventricle The left ventricle is normal size. There is normal LV segmental wall motion. Mild concentric left ventricular hypertrophy. Left ventricular systolic function is normal. The left ventricular ejection fraction is within the normal range. LVEF is 60-65%. Grade I - abnormal relaxation pattern. Right Ventricle The right ventricle is normal size. The right ventricular systolic function is normal. Atria The left atrium size is normal. The right atrium size is normal. Aortic Valve The aortic valve is normal in structure. No aortic regurgitation is present. There is no aortic valvular stenosis. Mitral Valve The mitral valve is normal in structure. There is no mitral valve regurgitation noted. No evidence of mitral valve stenosis. Tricuspid Valve The tricuspid valve is normal in structure. Trace tricuspid regurgitation. Unable to assess PA pressure. Pulmonic Valve The pulmonary valve is normal in structure. There is no pulmonic valvular regurgitation. Great Vessels The aortic root is normal in size. IVC is normal in size and collapses >50% [place] [address] 2 D/M-MODE ECHOCARDIOGRAM Name: KATIE ZAMORA Room: [address]#: [id number] Admission: 12/18/18 Attend Phys: Kamari Mullen, Discharge: Date of : 47 Date of Service: 12/19/18 1302 Report #: [id number] Pericardium There is no pericardial effusion. <Conclusion> The left ventricle is normal size. Mild concentric left ventricular hypertrophy. Left ventricular systolic function is normal. The left ventricular ejection fraction is within the normal range. LVEF is 60-65%. Grade I - abnormal relaxation pattern. The right ventricle is normal size. The left atrium size is normal. The aortic valve is normal in structure. The mitral valve is normal in structure. The tricuspid valve is normal in structure. IVC is normal in size and collapses >50% with inspiration. There is no pericardial effusion. There is normal LV segmental wall motion. <ELECTRONICALLY SIGNED> By: Simon Collier MD, [facility] 12/19/18 1302 1302 1302 Simon Collier MD, FACC /INF
[2018-12-19 20:40] VITALS: BP 116/51
[2018-12-20 00:03] VITALS: BP 136/47
[2018-12-20 04:05] VITALS: BP 106/48
[2018-12-20 07:30] VITALS: BP 137/51
--- NOTE | 2018-12-20 09:37 | CON ---
[address] [address] CONSULTATION Name: KATIE ZAMORA Room: [address] IN .R.#: [id number] Admission: 12/18/18 Attend Phys: Kamari Mullen MD Discharge: Date of : 47 Report #: [id number] THIS REPORT FOR: //name// CC: Kamari Garcia DATE OF SERVICE: 12/19/2018 REASON FOR CONSULTATION: Preop for antiplatelet. HISTORY OF PRESENT ILLNESS: A 73-year-old female who has a history of coronary artery disease status post PCI performed in May. She received a drug-eluting stent. The patient has been on Effient, and she has been receiving antiplatelet therapy for the last 6 months. She was admitted after a mechanical fall and had the right hip fracture. The patient was evaluated and she was on her way for surgery. The patient has been doing fairly well. Family at the bedside. She denies any major bleeding. REVIEW OF SYSTEMS: All systems reviewed. It was negative except the above. PAST MEDICAL HISTORY: Diabetes mellitus, coronary artery disease, vitamin D deficiency and neuropathy. PAST SURGICAL HISTORY: Appendectomy, carpal tunnel syndrome, PCI and left total knee replacement. FAMILY HISTORY: Noncontributory. ALLERGIES: SHE IS ALLERGIC TO ALENDRONATE, CODEINE, ERYTHROMYCIN, MORPHINE, STATINS, SULFA AND BRILINTA. MEDICATIONS: Per admission list. PHYSICAL EXAMINATION: VITAL SIGNS: Today, temperature 36.7, pulse 98, respirations 20, blood pressure is 162/57 and SpO2 was 95% on room air. GENERAL: The patient was lying in bed. She was not in acute distress. LUNGS: Clear to auscultations bilaterally. HEART: Regular rate and rhythm. S1, S2 within normal limits. ABDOMEN: Soft, nontender and nondistended. Bowel sounds positive. EXTREMITIES: The patient had severe tenderness in the right hip area. LABORATORY DATA: Today, WBC 10.9, hemoglobin 12.5 and platelets 282. Sodium is 137, potassium is 4.6, creatinine 1.0 and calcium is 8.7. ASSESSMENT AND PLAN: A 73-year-old female [place] [address] CONSULTATION Name: KATIE ZAMORA Room: [address] IN [facility]#: [id number] Admission: 12/18/18 Attend Phys: Kamari Mullen MD Discharge: Date of : 47 Report #: [id number] antiplatelet management. Agree with Cardiology recommendation. At this point, the patient had urgent surgery. Usually, Effient should be held 5 days prior to elective surgery. However, at this point, I agree with proceeding with the surgery. The patient will be monitored very closely postoperatively. It will be safe to resume Effient postoperatively once hemostasis is achieved. If significant bleeding occurred postoperatively, we might need a transfusion for platelets. <ELECTRONICALLY SIGNED> By: Klarissa Walton MD 12/20/18 0937 1524 0037Mofidel Walton MD /nt
[2018-12-20 10:40] LABS: HEMATOCRIT 31.6 % (37.0-47.0); MCH 29.4 pg (26.0-34.0); MCHC 31.8 g/dL (28.0-37.0); MCV 92.6 fL (80.0-100.0); MPV 8.6 fl. (7.2-11.1); NUCLEATED RBCS 0 /100WBC; PLATELET COUNT* 214 thou/uL (150-400); RBC 3.41 mil/uL (4.20-5.00); RDW-CV 15.1 % (10.5-14.5); WBC 14.3 thou/uL (4.0-11.0)
[2018-12-20 11:08] LABS: CALCIUM 8.4 mg/dL (8.5-10.1); CREATININE 1.2 mg/dL (0.6-1.3); POTASSIUM 4.4 mmol/L (3.5-5.1); TOTAL BILIRUBIN 0.5 mg/dL (<0.1-1.0); TOTAL PROTEIN 5.8 g/dL (6.4-8.2)
[2018-12-20 11:38] LABS: ABSOLUTE MONOCYTES 0.3 thou/uL (0.0-1.2); PLATELET ESTIMATE ADEQUATE
[2018-12-20 16:00] VITALS: BP 116/36
[2018-12-20 20:10] VITALS: BP 120/41
[2018-12-21 04:00] VITALS: BP 129/47
[2018-12-21 04:12] LABS: ABSOLUTE EOSINOPHILS 0.4 thou/uL (0.0-0.7); ABSOLUTE MONOCYTES 0.7 thou/uL (0.0-1.2); BASOPHILS 0.3 %; EOSINOPHILS 3.6 %; HEMATOCRIT 27.4 % (37.0-47.0); HEMOGLOBIN 8.8 gm/dL (12.0-15.0); LYMPHOCYTES 16.7 %; MCH 28.8 pg (26.0-34.0); MCV 90.1 fL (80.0-100.0); MONOCYTES 5.8 %; MPV 8.2 fl. (7.2-11.1); NUCLEATED RBCS 0 /100WBC; PLATELET COUNT* 212 thou/uL (150-400); POLYS 73.6 %; RBC 3.04 mil/uL (4.20-5.00); WBC 12.2 thou/uL (4.0-11.0)
[2018-12-21 04:26] LABS: CALCIUM 8.3 mg/dL (8.5-10.1); CREATININE 0.9 mg/dL (0.6-1.3)
[2018-12-21 07:50] VITALS: BP 121/55
[2018-12-21 16:13] VITALS: BP 122/51
[2018-12-21 19:52] VITALS: BP 130/53
[2018-12-21 23:07] LABS: URINE BILIRUBIN NEGATIVE (Negative); URINE BLOOD TRACE (Negative); URINE CLARITY SL CLOUDY; URINE COLOR YELLOW; URINE GLUCOSE-RANDOM 1+ (Negative); URINE KETONES NEGATIVE (Negative); URINE LEUKOCYTES-REFLEX 2+ (Negative); URINE NITRITE-REFLEX NEGATIVE (Negative); URINE PROTEIN NEGATIVE (Negative); URINE UROBILINOGEN 0.2 E.U./dl (0.2-1.0)
[2018-12-21 23:15] LABS: CASTS None Seen /LPF (None Seen); CRYSTALS None Seen /LPF (None Seen); MUCUS 0-3 Light strn/LPF (None Seen); SQUAMOUS 0-3 Few /LPF (0-3); URINE WBC-REFLEX >25 Many /HPF (0-5); WBC CLUMPS Few (None Seen); YEAST-REFLEX Present (None Seen)
[2018-12-22 03:00] VITALS: BP 137/49
[2018-12-22 08:00] VITALS: BP 124/41
[2018-12-22 13:45] LABS: HEMATOCRIT 27.1 % (37.0-47.0); MCH 29.9 pg (26.0-34.0); MCHC 33.3 g/dL (28.0-37.0); MCV 89.8 fL (80.0-100.0); MPV 8.4 fl. (7.2-11.1); RBC 3.02 mil/uL (4.20-5.00); RDW-CV 14.9 % (10.5-14.5); WBC 7.5 thou/uL (4.0-11.0)
[2018-12-22 14:04] LABS: CALCIUM 8.2 mg/dL (8.5-10.1); CREATININE 0.9 mg/dL (0.6-1.3); POTASSIUM 4.9 mmol/L (3.5-5.1)
[2018-12-22 15:00] VITALS: BP 135/51
[2018-12-22 21:44] VITALS: BP 109/61
[2018-12-23 02:06] LABS: GLYCOHEMOGLOBIN (HGB A1C) 8.5 % (4.8-5.6)
[2018-12-23 08:00] VITALS: BP 111/63
[2018-12-23] MEDS ORDERED: KEFLEX500 M1 PO (14:44)
[2018-12-23] MEDS ORDERED: NORCO 5-325 TA1 EAC1 PO (14:46)
[2018-12-23 14:51] VITALS: BP 111/63
[2018-12-23] MEDS ORDERED: ENOXAPARIN40 MG/0.1 SUBQ (15:09)
== END 2018-12-23 15:32 | DRG 480 ==
LOC: M.ERS 21:01 → M.TBA-ER 23:06 → M.ORTHSURG 23:06
PROVIDERS: Internal Medicine; Personal Emergency Response Attendant; ADMIT Internal Medicine
PROC: 0QS604Z Reposition Right Upper Femur with Internal Fixation Device, Open Approach (ICD-10-PCS; principal; 2018-12-19)
DX: S72.001A Fracture of unspecified part of neck of right femur, initial encounter for closed fracture (principal); G92 Toxic encephalopathy; J98.11 Atelectasis; N39.0 Urinary tract infection, site not specified; Z96.652 Presence of left artificial knee joint; F32.9 Major depressive disorder, single episode, unspecified; E11.40 Type 2 diabetes mellitus with diabetic neuropathy, unspecified; I25.10 Atherosclerotic heart disease of native coronary artery without angina pectoris; E11.51 Type 2 diabetes mellitus with diabetic peripheral angiopathy without gangrene; E11.649 Type 2 diabetes mellitus with hypoglycemia without coma; T50.905A Adverse effect of unspecified drugs, medicaments and biological substances, initial encounter; I25.2 Old myocardial infarction; Z90.49 Acquired absence of other specified parts of digestive tract; Z95.820 Peripheral vascular angioplasty status with implants and grafts; Z88.6 Allergy status to analgesic agent; Z88.1 Allergy status to other antibiotic agents; Z88.2 Allergy status to sulfonamides; Z88.8 Allergy status to other drugs, medicaments and biological substances; Z87.891 Personal history of nicotine dependence; Z79.82 Long term (current) use of aspirin; Z79.899 Other long term (current) drug therapy; Z95.5 Presence of coronary angioplasty implant and graft; Y92.89 Other specified places as the place of occurrence of the external cause; W18.39XA Other fall on same level, initial encounter; Y93.89 Activity, other specified; Y99.8 Other external cause status

== ENCOUNTER → 2019-01-02 | Outpatient (CLI) | payer OTHER ==
[~2019-01-02] MED LIST changes: +ENOXAPARIN40 MG/0.1 SUBQ; +KEFLEX500 M1 PO; +NORCO 5-325 TA1 EAC1 PO
--- NOTE | 2019-01-02 18:14 | CARDNUC ---
[place] [address] CARDIAC NUCLEAR IMAGING REPORT Name: KATIE ZAMORA Room: [facility]#: [id number] Admission: 01/02/19 Attend Phys: Alexander Haney Discharge: Date of : 47 Date of Service: 01/02/19 1814 Report #: [id number] THIS REPORT FOR: //name// APPROVED REPORT Study performed: 01/02/2019 07:45:00 Indication: CAD s/p PCI, CAD s/p SC. Patient Location: Out-Patient Stress Tech: Karlene Estrada Stress Nurse: Barb Dela Cruz RN Ht: 5 ft 3 in Wt: 151 lbs BSA: 1.72 m2 BMI: 26.74 Medical History Medical History: Angina, CAD s/p SC, CAD s/p stent, Carotid artery disease, CKD, Diabetic Insulin, Fatigue, Former Smoker, HTN, Hyperlipidemia, PVD, Weakness. Medications: ASA 81 Mg, Isosorbide, Carvedilol, NTG, Effient, Crestor, Zetia, Insulin. Allergies: Codeine, Fosamax, Statins, Sulfa meds, Morphine, Erythromycin Base, Ticagrelor. Cardiac Risk Factors: Age, Diabetes (insulin), FHX of CAD, HTN, Hyperlipidemia, Past Smoker, PVD,Bilateral Asymptomatic Carotid Stenosis, CKD, Claudication of Legs. Previous Cardiac Procedures: Myocardial infarction, PCI. Pretest Chest Pain Characteristics: No chest pain Exercise History: Sedentary Physical Disabilities: Claudication of Legs, Wheelchair bound, Unsteady/Weak gait, Back pain. Meds Held (24 hrs): Isosorbide, Carvedilol. Resting Data Rest SPECT myocardial perfusion imaging was performed in supine position 45 minutes following the intravenous injection of 10.9 mCi of Tc-99m Sestamibi. Time of rest injection: 08:25 The images were gated to evaluate regional wall motion and calculate left ventricular ejection fraction. Administration Route: IV Administration Site: Right AC Pharmacologic Stress Pharmacologic stress test was performed by injecting Regadenoson 0.4 [place] [address] CARDIAC NUCLEAR IMAGING REPORT Name: KATIE ZAMORA [id number] Admission: 01/02/19 Attend Phys: Alexander Haney Discharge: Date of : 47 Date of Service: 01/02/19 1814 Report #: [id number] mg IV push over 10-15 seconds immediately followed by the intravenous injection of 32.1 mCi of Tc-99m Sestamibi. Time of stress injection: 10:15 Administration Route: IV Administration Site: Right AC Heart Rate at time of stress injection: 106 bpm. Gated Stress SPECT was performed 45 minutes after stress injection. The images were gated to evaluate regional wall motion and calculate left ventricular ejection fraction. Stress Test Details Stress Test: Pharmacologic stress testing performed using 0.4 mg of regadenoson per 5 mL given IV over 10 seconds. Reason for pharmacologic stress test: Claudication of Legs, Back pain, Wheelchair bound, unsteady / weak gait.. HR Max Heart Rate (APMHR): 148 bpm Resting HR: 82 bpm Target HR (85% APMHR): 125 bpm Max HR Achieved: 114 bpm % of APMHR: 77 Recovery HR: 104 bpm BP Resting BP: 141/67 mmHg Max BP: 156/67 mmHg Recovery BP: 170/59 mmHg ECG Resting ECG: Sinus Rhythm, nonspecific ST-T abnormalities Stress ECG: Sinus Rhythm, nonspecific ST-T abnormalities ST Change: None Arrhythmia: None Recovery ECG: Sinus Rhythm, nonspecific ST-T abnormalities Recovery ST Change: None Recovery Arrhythmia: None Clinical Reason for Termination: Completed protocol Stress Symptoms: Dyspnea, Abdominal discomfort/Nausea. Exercise duration: 00 min 00 sec Exercise capacity: 1.00 METs The patient tolerated Lexiscan infusion without [place] [address] CARDIAC NUCLEAR IMAGING REPORT Name: KATIE ZAMORA Room: [facility]#: [id number] Admission: 01/02/19 Attend Phys: Alexander Haney Discharge: Date of : 47 Date of Service: 01/02/19 1814 Report #: [id number] Nurse Comments 73 year old female presented from SNF/Rehab for sitting Lexiscan. Test well tolerated. Recovery unremarkable with PO caffeine, effective. Patient was escorted via wheelchair by staff to Nuclear Medicine for images. Patient was stable with no complaints at that time. Stress ECG Conclusion The baseline 12-lead EKG shows sinus rhythm with nonspecific ST segment depression inferolateral leads. EKGs obtained during and post Lexiscan infusion show sinus rhythm and sinus tachycardia with no significant ST or T wave changes when compared to baseline. There were no stress-induced arrhythmias. Study Quality Study: Good Artifact: Mild Diaphragmatic artifact Study Data At rest, the left ventricular ejection fraction was 59%.. Post stress, the left ventricular ejection was 73%.. TID = 0.98. Perfusion Perfusion images show photopenia in the basal inferior wall. The region is moderate in size mild intensity. Review of the raw data shows diaphragmatic attenuation. Review of the gated images showed normal wall motion. Findings consistent with diaphragmatic attenuation artifact. No other significant fixed or reversible defects were identified. Wall Motion Global LV systolic function is normal. There is a septal wall motion abnormality noted of uncertain significance. Nuclear Conclusion ECG Findings: non-diagnostic Clinical Findings: negative for ischemia Nuclear Findings: negative for ischemia Exercise Capacity: not assessed Left Ventricular Function: preserved Myocardial perfusion images show no defect to suggest significant stress-induced ischemia. Global LV systolic function is preserved. This is not a high risk study. <Conclusion> [place] [address] CARDIAC NUCLEAR IMAGING REPORT Name: KATIE ZAMORA Room: [facility]#: [id number] Admission: 01/02/19 Attend Phys: Alexander Haney Discharge: Date of : 47 Date of Service: 01/02/191813 Report #: [id number] The baseline 12-lead EKG shows sinus rhythm with nonspecific ST segment depression inferolateral leads. EKGs obtained during and post Lexiscan infusion show sinus rhythm and sinus tachycardia with no significant ST or T wave changes when compared to baseline. There were no stress-induced arrhythmias. <ELECTRONICALLY SIGNED> By: Shravan Latif MD, FACC 01/02/191813 13 13 Shravan Latif MD, FACC /INF
== END ==
LOC: M.NUC 07-05 12:20
DX: I25.119 Atherosclerotic heart disease of native coronary artery with unspecified angina pectoris (principal); I21.4 Non-ST elevation (NSTEMI) myocardial infarction; M81.0 Age-related osteoporosis without current pathological fracture; I65.23 Occlusion and stenosis of bilateral carotid arteries; Z98.61 Coronary angioplasty status

== ENCOUNTER → 2019-02-17 | Outpatient (CLI) | payer OTHER ==
[2019-02-17 15:02] LABS: HEMATOCRIT 33.2 % (37.0-47.0); HEMOGLOBIN 10.9 gm/dL (12.0-15.0)
== END ==
LOC: M.LAB 14:42
PROVIDERS: Surgery Vascular Surgery
DX: I70.213 Atherosclerosis of native arteries of extremities with intermittent claudication, bilateral legs (principal)

== ENCOUNTER → 2019-03-16 | Outpatient (CLI) | payer OTHER ==
[2019-03-16 13:53] LABS: HEMATOCRIT 34.2 % (37.0-47.0); HEMOGLOBIN 11.2 gm/dL (12.0-15.0)
[2019-03-16 14:05] LABS: ALBUMIN 3.4 g/dL (3.4-5.0); CALCIUM 8.4 mg/dL (8.5-10.1); PHOSPHORUS* 4.2 mg/dL (2.5-4.9)
== END ==
LOC: M.LAB 13:21
PROVIDERS: Surgery Vascular Surgery
DX: I70.213 Atherosclerosis of native arteries of extremities with intermittent claudication, bilateral legs (principal)

== ENCOUNTER 2019-04-28 00:23 | Emergency (ER) | payer MEDICARE ==
[~2019-04-28] VITALS: Ht 160 cm; Wt 72.6 kg
[2019-04-28 00:44] LABS: ABSOLUTE EOSINOPHILS 0.5 thou/uL (0.0-0.7); ABSOLUTE LYMPHOCYTES 2.6 thou/uL (0.8-5.3); ABSOLUTE MONOCYTES 0.8 thou/uL (0.0-1.2); ABSOLUTE NEUTROPHILS 8.1 thou/uL (1.6-8.1); BASOPHILS 0.3 %; EOSINOPHILS 4.1 %; HEMATOCRIT 37.7 % (37.0-47.0); HEMOGLOBIN 12.2 gm/dL (12.0-15.0); LYMPHOCYTES 21.6 %; MCH 26.9 pg (26.0-34.0); MCHC 32.2 g/dL (28.0-37.0); MCV 83.5 fL (80.0-100.0); MONOCYTES 6.8 %; MPV 7.5 fl. (7.2-11.1); NUCLEATED RBCS 0 /100WBC; PLATELET COUNT* 370 thou/uL (150-400); POLYS 67.2 %; RBC 4.52 mil/uL (4.20-5.00); RDW-CV 15.3 % (10.5-14.5)
[2019-04-28] MEDS ORDERED: TOPROL XL25 MG PO (00:50)
[2019-04-28 00:55] LABS: INR 0.9; PROTIME 9.4 Seconds (9.20-11.50)
[2019-04-28 01:02] LABS: CALCIUM 8.9 mg/dL (8.5-10.1); CREATININE 0.9 mg/dL (0.6-1.3); POTASSIUM 3.6 mmol/L (3.5-5.1)
[2019-04-28 01:07] LABS: ALBUMIN 3.9 g/dL (3.4-5.0); TOTAL BILIRUBIN 0.2 mg/dL (<0.1-1.0); TOTAL PROTEIN 7.5 g/dL (6.4-8.2)
[2019-04-28 03:34] LABS: URINE BILIRUBIN NEGATIVE (Negative); URINE BLOOD TRACE (Negative); URINE CLARITY CLEAR; URINE COLOR YELLOW; URINE GLUCOSE-RANDOM 1+ (Negative); URINE KETONES NEGATIVE (Negative); URINE LEUKOCYTES-REFLEX NEGATIVE (Negative); URINE NITRITE-REFLEX NEGATIVE (Negative); URINE PROTEIN 1+ (Negative); URINE UROBILINOGEN 0.2 E.U./dl (0.2-1.0)
[2019-04-28 06:07] VITALS: BP 178/50
--- NOTE | 2019-04-28 13:01 | EKG ---
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: [place] : 1945 Requested By: Loraine Urbina Order Number: [id number] MD: Simon Collier Measurements Intervals [place] Rate: 81 P: 76 DC: 156 QRS: 53 QRSD: 92 T: 64 QT: 458 QTc: 532 Interpretive Statements Sinus rhythm Multiple ventricular premature complexes Prolonged QT interval Compared to ECG 12/18/2018 22:45:55 Ventricular premature complex(es) now present Prolonged QT interval now present Electronically Signed On 04-28-2019 13:00:51 [employer]HROOM CLE[employer] by Simon Collier [email or web address] <ELECTRONICALLY SIGNED> By: Simon Collier MD, [facility] 04/28/19 1300 0154 0154 Simon Collier MD, FACC /EPI
== END 2019-04-28 06:08 | disposition home or self-care (01) ==
LOC: M.ERS 00:23
PROVIDERS: Emergency Medicine
DX: E11.649 Type 2 diabetes mellitus with hypoglycemia without coma (principal); E11.40 Type 2 diabetes mellitus with diabetic neuropathy, unspecified; Z90.89 Acquired absence of other organs; I25.2 Old myocardial infarction; Z90.49 Acquired absence of other specified parts of digestive tract; Z79.4 Long term (current) use of insulin; Z88.5 Allergy status to narcotic agent; Z88.1 Allergy status to other antibiotic agents; Z88.2 Allergy status to sulfonamides; Z88.8 Allergy status to other drugs, medicaments and biological substances; Z87.891 Personal history of nicotine dependence

== ENCOUNTER 2019-12-05 10:37 | Inpatient (IN) | payer MEDICARE ==
[2019-12-05] VITALS (13 sets, daily range): BP systolic 124–204; BP diastolic 43–73
[~2019-12-05] VITALS: Ht 157.5 cm; Wt 63.5 kg
--- NOTE | ~2019-12-05 | CON ---
[address] [address] CONSULTATION Name: KATIE ZAMORA Room: [address] ADM IN M.R.#: [id number] Admission: 12/05/19 Attend Phys: Hammad Payan, Discharge: Date of : 47 Report #: [id number] THIS REPORT FOR: //name// cc: Smooth Garcia Vincent R. DO ~ THIS REPORT FOR: //name// CC: Hammad Garcia DATE OF SERVICE: 12/05/2019 REQUESTING PHYSICIAN: Hammad Payan MD HISTORY OF PRESENT ILLNESS: This is a 74-year-old female. The patient is confused at the time of my examination; therefore available history is limited. She is reported to have a history of smoking in the past; however, the patient is not previously diagnosed with COPD to my knowledge. She does have a history of diabetes and takes insulin at home. At this time, according to the records, the patient is admitted with weakness and dehydration and had been having diarrhea for the last 2 days. The patient at this time is on room air and is oxygenating adequately. Her blood pressure is elevated. The patient also does have an elevated blood glucose at 267, initially 331. She has severe acidosis with a pH of 6.946 metabolic. This appears to be significantly out of proportion to what would be expected by the patient's blood glucoses alone. The patient does appear to be tachypneic, but this likely is secondary to the acidosis. The patient answered to the negative for all complaints as she does not appear to have pain; however, she is confused and therefore, history is not reliable. PAST MEDICAL HISTORY: Peripheral vascular disease, diabetes, coronary artery disease, stents, appendectomy, total knee replacement, carpal tunnel surgery, MDD, neuropathy, vitamin D deficiency, tonsillectomy, previous echo did not show major abnormalities. SOCIAL HISTORY: Smoked in the past, has now discontinued, unable to quantify. No known history of heavy alcohol use or illegal drug use. CURRENT MEDICATIONS: List in cloudswave reviewed. HOME MEDICATIONS: List in cloudswave also reviewed. FAMILY HISTORY: COPD. ALLERGIES: FOSAMAX, CODEINE, ERYTHROMYCIN, MORPHINE, STATINS, [place] [address] CONSULTATION Name: KATIE ZAMORA Room: [address]#: [id number] Admission: 12/05/19 Attend Phys: Hammad Payan, Discharge: Date of : 47 Report #: [id number] ANTIBIOTICS AND BRILINTA are mentioned as allergy. I am not certain if the patient in fact is allergic to all of these medications. PHYSICAL EXAMINATION: GENERAL: She is fully awake. She is, however, confused, unable to answer orientation questions. VITAL SIGNS: Has a pulse of 110, blood pressure 171/54, respiratory rate was 30. She is saturating 94%. She is not on supplemental oxygen. She is afebrile with a temperature of 36.9. HEENT: Head is normocephalic and atraumatic. There is no throat erythema. Throat examination is limited; however, due to limited patient cooperation. NECK: Does not show raised JVP, asymmetry, mass or lymph nodes. CHEST: Symmetrical expansion on inspection and palpation. On auscultation, breath sounds are bilaterally equal. High respiratory rate is noted. No added sounds. HEART: Regular. There is tachycardia. ABDOMEN: Soft and nontender. EXTREMITIES: Lower extremities show no edema, no calf tenderness Lower extremities are cold and clammy. SKIN: Dry and intact. NEUROLOGICAL: Moves all extremities bilaterally equally and spontaneously with no focal deficit identified. LABORATORY DATA: The patient's chest x-ray from this morning is reviewed. It in fact does not show any major abnormalities. The patient's CT of the abdomen and pelvis is also reviewed. There is a suspicion of colitis and fatty infiltration of the liver; however, there are no other acute findings. The patient's lab work including the arterial blood gases, which show severe acidosis as well as CBC and chemistries in [facility] reviewed. Coagulation studies in [facility] reviewed. Urinalysis in [facility] reviewed. COVID-19 screen was negative. ASSESSMENT/PLAN: 1. Severe metabolic acidosis, while the patient does have uncontrolled diabetes the severity of metabolic acidosis is significantly out of proportion to this and I feel that there is likely an additional etiology. Either the patient does have colitis or another source of sepsis, so far not determined. The possibility of ischemic bowel is also considered. The GI service is on the case and their input is awaited. At this time, I agree with continuing with fluid resuscitation. She is to receive 2 amps of bicarbonate per the DKA protocol. I feel that this is reasonable, we will proceed and likely the patient's pH will not sufficiently correct with this and we will need to give her more bicarbonate. We will therefore obtain a venous blood gas in 2 hours and see where we stand. We will continue with fluid resuscitation. 2. Uncontrolled diabetes/possible BKA. See discussion as above. I agree with insulin drip. Electrolytes need to be followed closely as well. 3. Sepsis/possible ischemic bowel. GI service has been consulted. Their input [address] [address] CONSULTATION Name: KATIE ZAMORA Room: [address] IN [facility]#: [id number] Admission: 12/05/19 Attend Phys: Hammad Payan, Discharge: Date of : 47 Report #: [id number] is pending. The patient is on Zosyn. I will continue if not seen by GI today, then I will consider broadening antibiotics as there is a question as to whether the patient has had diarrhea, may consider adding metronidazole. If she does have more stools, will do a C. difficile sample. Down the line may also benefit from a CT chest. The patient is critically ill at this time. The total time spent providing critical care to this patient today exceeds 40 minutes. By: 1656 [id number] Clark MD /nt
[~2019-12-05 10:37] MED LIST changes: +TOPROL XL25 MG PO
[2019-12-05 11:16] LABS: HEMOGLOBIN 12.1 gm/dL (12.0-15.0); MCV 89.5 fL (80.0-100.0); NUCLEATED RBCS 0 /100WBC; RDW-CV 17.8 % (10.5-14.5)
[2019-12-05 11:20] LABS: HEMATOCRIT 42.3 % (37.0-47.0); MCH 25.6 pg (26.0-34.0); MCHC 28.6 g/dL (28.0-37.0); MPV 8.6 fl. (7.2-11.1); PLATELET COUNT* 413 thou/uL (150-400); RBC 4.72 mil/uL (4.20-5.00); WBC 15.2 thou/uL (4.0-11.0)
[2019-12-05 11:37] LABS: BE -25.4 mmol/L (-2 to +3)
[2019-12-05 11:41] LABS: pH 7.034 (7.340-7.450)
[2019-12-05 11:42] LABS: PCO2 < 17.0 mmHg (35.0-45.0); PO2 132.4 mmHg (75.0-100.0)
[2019-12-05 11:50] LABS: CALCIUM 9.1 mg/dL (8.5-10.1); CREATININE 1.5 mg/dL (0.6-1.3); POTASSIUM 4.4 mmol/L (3.5-5.1)
[2019-12-05 11:51] LABS: APTT 28.6 Seconds (25.0-31.3)
[2019-12-05 11:56] LABS: ABSOLUTE LYMPHOCYTES 1.1 thou/uL (0.8-5.3); ABSOLUTE NEUTROPHILS 14.1 thou/uL (1.6-8.1); ANISOCYTOSIS 1+; PLATELET ESTIMATE ADEQUATE
[2019-12-05 12:00] LABS: ALBUMIN 3.5 g/dL (3.4-5.0); TOTAL BILIRUBIN 0.6 mg/dL (<0.1-1.0); TOTAL PROTEIN 7.6 g/dL (6.4-8.2)
[2019-12-05 12:17] LABS: URINE BILIRUBIN NEGATIVE (Negative); URINE BLOOD 1+ (Negative); URINE CLARITY CLEAR; URINE COLOR YELLOW; URINE GLUCOSE-RANDOM 2+ (Negative); URINE LEUKOCYTES-REFLEX NEGATIVE (Negative); URINE NITRITE-REFLEX NEGATIVE (Negative); URINE PROTEIN 1+ (Negative); URINE SPECIFIC GRAVITY >= 1.030 (1.005-1.030); URINE UROBILINOGEN 0.2 E.U./dl (0.2-1.0)
[2019-12-05 12:26] LABS: URINE KETONES 3+ (Negative)
[2019-12-05 12:27] LABS: ACETEST (KETONE CONFIRMATORY) Moderate (Negative)
[2019-12-05 12:28] LABS: BACTERIA-REFLEX 1-9 Few /HPF (None Seen); CASTS None Seen /LPF (None Seen); SQUAMOUS 0-3 Few /LPF (0-3); URINE RBC 0-2 Rare /HPF (0-2); URINE WBC-REFLEX 0-5 Rare /HPF (0-5)
[2019-12-05 12:44] LABS: CRYSTALS None Seen /LPF (None Seen)
[2019-12-05 15:33] LABS: ALBUMIN 3.1 g/dL (3.4-5.0); ANION GAP 30 mmol/L (7-16); BUN 24 mg/dL (7-18); CHLORIDE 106 mmol/L (98-107); CREATININE 1.3 mg/dL (0.6-1.3); GLUCOSE 252 mg/dL (70-99); MAGNESIUM 1.8 mg/dL (1.8-2.4); PHOSPHORUS* 4.5 mg/dL (2.5-4.9); POTASSIUM 3.7 mmol/L (3.5-5.1); SODIUM 141 mmol/L (136-145)
--- NOTE | 2019-12-05 15:38 | EKG ---
[place] [address] ELECTROCARDIOGRAM REPORT Name: KATIE ZAMORA Room: [address] ADM IN M.R.#: [id number] Admission: 12/05/19 Attend Phys: Hammad Felipe Discharge: Date of : 47 Date of Service: 12/05/19 1055 Report #: [id number] THIS REPORT FOR: //name// [facility] ED Test Date: 2019-12-05 Test Time: 10:55:22 Pat Name: KATIE ZAMORA Department: Room: [facility] Gender: F Nurse Coordinator: CCD : 1945 Requested By: Denny Denis Order Number: [id number] MD: Shravan Latif Measurements Intervals [place] Rate: 114 P: 71 [place]: 175 QRS: 26 QRSD: 93 T: -86 QT: 364 QTc: 502 Interpretive Statements Sinus tachycardia Possible left atrial enlargement Borderline T abnormalities, inferior leads ST elevation, consider anterolateral injury Prolonged QT interval Compared to ECG 04/28/2019 01:54:15 T-wave abnormality now present ST (T wave) deviation now present Myocardial infarct finding now present Sinus rhythm no longer present Ventricular premature complex(es) no longer present Electronically Signed On 12-05-2019 15:38:27 CDT by Shravan Latif [email or web address] <ELECTRONICALLY SIGNED> By: Shravan Latif MD, FAC 12/05/19 1538 1055 1055 Shravan Latif MD, [facility] /EPI
[2019-12-05 15:41] LABS: CALCIUM 8.1 mg/dL (8.5-10.1)
[2019-12-05 15:44] LABS: CO2 < 5 mmol/L (21-32)
[2019-12-05 16:00] LABS: BE -27.6 mmol/L (-2 to +3)
[2019-12-05 16:05] LABS: pH 6.946 (7.340-7.450)
[2019-12-05 16:06] LABS: PCO2 < 17.0 mmHg (35.0-45.0); PO2 152.6 mmHg (75.0-100.0)
[2019-12-05] MEDS ORDERED: TRESIBA100 UNIT/1 SUBQ (18:58)
[2019-12-05] MEDS ORDERED: JARDIANCE10 MG PO (18:59)
[2019-12-05] MEDS ORDERED: GLUCOPHAGE1000 MG PO (18:59)
[2019-12-05 19:05] LABS: BE -19.1 mmol/L (-2 to +3)
[2019-12-05 19:30] LABS: ALBUMIN 2.7 g/dL (3.4-5.0); CALCIUM 7.6 mg/dL (8.5-10.1); CREATININE 1.2 mg/dL (0.6-1.3); MAGNESIUM 1.4 mg/dL (1.8-2.4); PHOSPHORUS* 1.7 mg/dL (2.5-4.9); POTASSIUM 3.9 mmol/L (3.5-5.1)
[2019-12-06] VITALS (20 sets, daily range): BP systolic 98–153; BP diastolic 36–67
[2019-12-06 01:32] LABS: ALBUMIN 2.4 g/dL (3.4-5.0); CALCIUM 7.9 mg/dL (8.5-10.1); CREATININE 1.2 mg/dL (0.6-1.3); MAGNESIUM 2.3 mg/dL (1.8-2.4); PHOSPHORUS* 1.9 mg/dL (2.5-4.9); POTASSIUM 3.6 mmol/L (3.5-5.1)
[2019-12-06 05:39] LABS: URINE BILIRUBIN NEGATIVE (Negative); URINE BLOOD 1+ (Negative); URINE CLARITY CLEAR; URINE COLOR YELLOW; URINE GLUCOSE-RANDOM 2+ (Negative); URINE KETONES 2+ (Negative); URINE LEUKOCYTES NEGATIVE (Negative); URINE NITRITE NEGATIVE (Negative); URINE PROTEIN TRACE (Negative); URINE SPECIFIC GRAVITY 1.025 (1.005-1.030); URINE UROBILINOGEN 0.2 E.U./dl (0.2-1.0)
[2019-12-06 05:43] LABS: ABSOLUTE LYMPHOCYTES 0.5 thou/uL (0.8-5.3); ABSOLUTE MONOCYTES 0.7 thou/uL (0.0-1.2); ABSOLUTE NEUTROPHILS 10.2 thou/uL (1.6-8.1); BASOPHILS 0.1 %; HEMATOCRIT 26.1 % (37.0-47.0); LYMPHOCYTES 4.5 %; MONOCYTES 5.9 %; MPV 7.8 fl. (7.2-11.1); NUCLEATED RBCS 0 /100WBC; POLYS 89.5 %; RBC 3.32 mil/uL (4.20-5.00); RDW-CV 16.5 % (10.5-14.5); WBC 11.4 thou/uL (4.0-11.0)
[2019-12-06 05:58] LABS: BACTERIA 1-9 Few /HPF (None Seen); CASTS None Seen /LPF (None Seen); CRYSTALS None Seen /LPF (None Seen); MUCUS 4-6 Moderate strn/LPF (None Seen); SQUAMOUS 0-3 Few /LPF (0-3); URINE RBC 3-10 Few /HPF (0-2); URINE WBC 0-5 Rare /HPF (0-5)
[2019-12-06 06:48] LABS: ALBUMIN 2.3 g/dL (3.4-5.0); ALKALINE PHOSPHATASE 90 U/L (46-116); ANION GAP 14 mmol/L (7-16); BUN 15 mg/dL (7-18); CHLORIDE 110 mmol/L (98-107); CO2 20 mmol/L (21-32); GLUCOSE 198 mg/dL (70-99); PHOSPHORUS* 3.6 mg/dL (2.5-4.9); POTASSIUM 3.8 mmol/L (3.5-5.1); SGOT 24 U/L (15-37); SGPT 14 U/L (30-65); SODIUM 144 mmol/L (136-145); TOTAL BILIRUBIN 0.3 mg/dL (<0.1-1.0); TOTAL PROTEIN 5.2 g/dL (6.4-8.2)
[2019-12-06 06:49] LABS: HEMOGLOBIN 8.6 gm/dL (12.0-15.0); MCV 78.7 fL (80.0-100.0); PLATELET COUNT* 262 thou/uL (150-400)
[2019-12-06 08:57] LABS: BE -5.7 mmol/L (-2 to +3); PCO2 35.4 mmHg (35.0-45.0); PO2 117.9 mmHg (75.0-100.0); pH 7.353 (7.340-7.450)
[2019-12-06 11:48] LABS: CALCIUM 6.2 mg/dL (8.5-10.1); MAGNESIUM 1.6 mg/dL (1.8-2.4); PHOSPHORUS* 2.5 mg/dL (2.5-4.9); POTASSIUM 3.2 mmol/L (3.5-5.1)
[2019-12-06 12:42] LABS: ABSOLUTE LYMPHOCYTES 0.5 thou/uL (0.8-5.3); ABSOLUTE MONOCYTES 0.4 thou/uL (0.0-1.2); ABSOLUTE NEUTROPHILS 9.9 thou/uL (1.6-8.1); BASOPHILS 0.4 %; HEMATOCRIT 26.8 % (37.0-47.0); HEMOGLOBIN 8.9 gm/dL (12.0-15.0); MCH 26.2 pg (26.0-34.0); MCHC 33.2 g/dL (28.0-37.0); MONOCYTES 3.4 %; MPV 7.9 fl. (7.2-11.1); NUCLEATED RBCS 0 /100WBC; PLATELET COUNT* 249 thou/uL (150-400); POLYS 91.2 %; RBC 3.39 mil/uL (4.20-5.00); RDW-CV 16.8 % (10.5-14.5); WBC 10.8 thou/uL (4.0-11.0)
[2019-12-06 12:52] LABS: CALCIUM 7.2 mg/dL (8.5-10.1); CREATININE 0.9 mg/dL (0.6-1.3); MAGNESIUM 1.8 mg/dL (1.8-2.4); PHOSPHORUS* 2.4 mg/dL (2.5-4.9); POTASSIUM 3.2 mmol/L (3.5-5.1)
[2019-12-06 17:17] LABS: ALBUMIN 2.5 g/dL (3.4-5.0); CALCIUM 7.4 mg/dL (8.5-10.1); CREATININE 0.9 mg/dL (0.6-1.3); MAGNESIUM 1.7 mg/dL (1.8-2.4); PHOSPHORUS* 1.8 mg/dL (2.5-4.9)
[2019-12-07] VITALS: BP 131/54
[2019-12-07 02:06] LABS: GLYCOHEMOGLOBIN (HGB A1C) 8.2 % (4.8-5.6)
[2019-12-07 04:00] VITALS: BP 155/67
[2019-12-07 05:47] LABS: ABSOLUTE LYMPHOCYTES 1.2 thou/uL (0.8-5.3); ABSOLUTE MONOCYTES 0.9 thou/uL (0.0-1.2); ABSOLUTE NEUTROPHILS 9.6 thou/uL (1.6-8.1); BASOPHILS 0.1 %; HEMOGLOBIN 9.1 gm/dL (12.0-15.0); LYMPHOCYTES 10.5 %; MCHC 32.7 g/dL (28.0-37.0); MCV 79.6 fL (80.0-100.0); MONOCYTES 8.1 %; MPV 8.4 fl. (7.2-11.1); NUCLEATED RBCS 0 /100WBC; PLATELET COUNT* 245 thou/uL (150-400); POLYS 81.3 %; RBC 3.51 mil/uL (4.20-5.00); RDW-CV 16.8 % (10.5-14.5); WBC 11.7 thou/uL (4.0-11.0)
[2019-12-07 06:16] LABS: ALBUMIN 2.5 g/dL (3.4-5.0); ALKALINE PHOSPHATASE 101 U/L (46-116); ANION GAP 8 mmol/L (7-16); BUN 10 mg/dL (7-18); CALCIUM 7.6 mg/dL (8.5-10.1); CHLORIDE 108 mmol/L (98-107); CO2 27 mmol/L (21-32); CREATININE 0.8 mg/dL (0.6-1.3); GLUCOSE 234 mg/dL (70-99); MAGNESIUM 1.9 mg/dL (1.8-2.4); POTASSIUM 3.8 mmol/L (3.5-5.1); SGOT 28 U/L (15-37); SGPT 17 U/L (30-65); SODIUM 143 mmol/L (136-145); TOTAL BILIRUBIN 0.3 mg/dL (<0.1-1.0); TOTAL PROTEIN 5.4 g/dL (6.4-8.2)
[2019-12-07 06:45] LABS: % SATURATION 7 % (20-39); IRON 13 ug/dL (50-175)
[2019-12-07 08:00] VITALS: BP 169/71
[2019-12-07 12:24] VITALS: BP 133/73
[2019-12-07 20:29] VITALS: BP 179/76
[2019-12-08] VITALS (9 sets, daily range): BP systolic 90–196; BP diastolic 41–80
[2019-12-08 06:46] LABS: HEMATOCRIT 29.8 % (37.0-47.0); HEMOGLOBIN 9.6 gm/dL (12.0-15.0); MCH 25.5 pg (26.0-34.0); MCHC 32.2 g/dL (28.0-37.0); MPV 8.2 fl. (7.2-11.1); RBC 3.77 mil/uL (4.20-5.00); RDW-CV 16.6 % (10.5-14.5); WBC 7.4 thou/uL (4.0-11.0)
[2019-12-08 06:55] LABS: ALBUMIN 2.5 g/dL (3.4-5.0); CALCIUM 7.9 mg/dL (8.5-10.1); CREATININE 0.6 mg/dL (0.6-1.3); MAGNESIUM 1.5 mg/dL (1.8-2.4); POTASSIUM 3.2 mmol/L (3.5-5.1); TOTAL BILIRUBIN 0.4 mg/dL (<0.1-1.0); TOTAL PROTEIN 5.3 g/dL (6.4-8.2)
[2019-12-09] VITALS (7 sets, daily range): BP systolic 128–160; BP diastolic 54–70
[2019-12-10 07:46] VITALS: BP 162/73
[2019-12-10 16:15] VITALS: BP 119/43
[2019-12-10 19:45] VITALS: BP 156/69
[2019-12-11 11:00] VITALS: BP 117/54; BP 90/41
[2019-12-11 15:30] VITALS: BP 146/65
[2019-12-12] VITALS: BP 178/60
[2019-12-12 08:00] VITALS: BP 123/80
[2019-12-12 16:00] VITALS: BP 133/56
[2019-12-12 20:05] VITALS: BP 173/75; BP 184/69
[2019-12-12 20:06] VITALS: BP 127/57
[2019-12-13 01:48] LABS: URINE BILIRUBIN NEGATIVE (Negative); URINE BLOOD TRACE (Negative); URINE CLARITY CLEAR; URINE COLOR YELLOW; URINE GLUCOSE-RANDOM 3+ (Negative); URINE KETONES NEGATIVE (Negative); URINE LEUKOCYTES-REFLEX NEGATIVE (Negative); URINE NITRITE-REFLEX NEGATIVE (Negative); URINE PROTEIN NEGATIVE (Negative); URINE SPECIFIC GRAVITY 1.015 (1.005-1.030); URINE UROBILINOGEN 0.2 E.U./dl (0.2-1.0)
[2019-12-13 08:00] VITALS: BP 166/60
[2019-12-13 10:00] VITALS: BP 124/64; BP 142/52; BP 149/46
[2019-12-13 16:00] VITALS: BP 141/62
[2019-12-13 20:30] VITALS: BP 180/70
[2019-12-14 07:45] VITALS: BP 188/72
[2019-12-14] MEDS ORDERED: MIDODRINE HCL 55 M1 PO (08:46)
[2019-12-14 09:13] VITALS: BP 180/70
[2019-12-14 10:00] VITALS: BP 180/70
[2019-12-14 11:36] VITALS: BP 180/70
== END 2019-12-14 11:39 | disposition home health service (06) | DRG 871 ==
LOC: M.ERS 10:37 → M.TBA-ER 12:43 → M.3W 12:43 → M.ICU 12:43 → M.2W 12-06 22:16 → M.3W 12-09 07:36 → M.ORTHSURG 12-11 14:09
PROVIDERS: Family Medicine; Internal Medicine; Internal Medicine Critical Care Medicine; Internal Medicine Gastroenterology; ADMIT Family Medicine; ATTEND Family Medicine
PROC: 02HV33Z Insertion of Infusion Device into Superior Vena Cava, Percutaneous Approach (ICD-10-PCS; principal; 2019-12-05)
PROC: B548ZZA Ultrasonography of Superior Vena Cava, Guidance (ICD-10-PCS; principal; 2019-12-05)
DX: A41.9 Sepsis, unspecified organism (principal); E11.10 Type 2 diabetes mellitus with ketoacidosis without coma; G92 Toxic encephalopathy; A04.5 Campylobacter enteritis; N17.9 Acute kidney failure, unspecified; Z96.652 Presence of left artificial knee joint; F32.9 Major depressive disorder, single episode, unspecified; E11.51 Type 2 diabetes mellitus with diabetic peripheral angiopathy without gangrene; I25.10 Atherosclerotic heart disease of native coronary artery without angina pectoris; K76.0 Fatty (change of) liver, not elsewhere classified; E83.42 Hypomagnesemia; E11.649 Type 2 diabetes mellitus with hypoglycemia without coma; E11.43 Type 2 diabetes mellitus with diabetic autonomic (poly)neuropathy; K90.0 Celiac disease; D50.9 Iron deficiency anemia, unspecified; E87.6 Hypokalemia; R91.1 Solitary pulmonary nodule; Z20.828 Contact with and (suspected) exposure to other viral communicable diseases; K58.0 Irritable bowel syndrome with diarrhea; Z79.4 Long term (current) use of insulin; Z79.84 Long term (current) use of oral hypoglycemic drugs; Z90.49 Acquired absence of other specified parts of digestive tract; I25.2 Old myocardial infarction; Z79.899 Other long term (current) drug therapy; Z88.5 Allergy status to narcotic agent; Z88.1 Allergy status to other antibiotic agents; Z88.2 Allergy status to sulfonamides; Z88.8 Allergy status to other drugs, medicaments and biological substances; Z87.891 Personal history of nicotine dependence; Z95.5 Presence of coronary angioplasty implant and graft

== ENCOUNTER → 2020-01-16 | Outpatient (CLI) | payer MEDICARE ==
[~2020-01-16] MED LIST changes: +GLUCOPHAGE1000 MG PO; +JARDIANCE10 MG PO; +MIDODRINE HCL 55 M1 PO; +TRESIBA100 UNIT/1 SUBQ
[2020-01-16 14:33] LABS: HEMATOCRIT 32.1 % (37.0-47.0); HEMOGLOBIN 10.3 gm/dL (12.0-15.0)
== END ==
LOC: M.LAB 14:14
PROVIDERS: ATTEND Surgery Vascular Surgery
DX: I70.213 Atherosclerosis of native arteries of extremities with intermittent claudication, bilateral legs (principal)

== ENCOUNTER → 2020-01-19 | Outpatient (CLI) | payer MEDICARE | LOC: M.ULTRA 15:30 | PROVIDERS: ATTEND Family Medicine | DX: R19.09 Other intra-abdominal and pelvic swelling, mass and lump (principal) ==

== ENCOUNTER 2020-02-06 21:00 | Inpatient (IN) | payer MEDICARE ==
[~2020-02-06] VITALS: Ht 157.5 cm; Wt 66.5 kg
[2020-02-06 21:05] VITALS: BP 180/51
[2020-02-06 22:22] LABS: ABSOLUTE BASOPHILS 0.1 thou/uL (0.0-0.2); ABSOLUTE LYMPHOCYTES 1.8 thou/uL (0.8-5.3); ABSOLUTE MONOCYTES 0.7 thou/uL (0.0-1.2); ABSOLUTE NEUTROPHILS 10.5 thou/uL (1.6-8.1); BASOPHILS 0.6 %; EOSINOPHILS 0.3 %; HEMATOCRIT 37.1 % (37.0-47.0); HEMOGLOBIN 10.7 gm/dL (12.0-15.0); LYMPHOCYTES 13.4 %; MCH 25.4 pg (26.0-34.0); MCHC 28.9 g/dL (28.0-37.0); MCV 87.7 fL (80.0-100.0); MONOCYTES 5.2 %; MPV 8.6 fl. (7.2-11.1); NUCLEATED RBCS 0 /100WBC; PLATELET COUNT* 341 thou/uL (150-400); POLYS 80.5 %; RBC 4.23 mil/uL (4.20-5.00); RDW-CV 17.6 % (10.5-14.5); WBC 13.1 thou/uL (4.0-11.0)
[2020-02-06 22:23] LABS: URINE BILIRUBIN NEGATIVE (Negative); URINE BLOOD NEGATIVE (Negative); URINE CLARITY CLEAR; URINE COLOR YELLOW; URINE GLUCOSE-RANDOM 2+ (Negative); URINE KETONES 3+ (Negative); URINE LEUKOCYTES-REFLEX NEGATIVE (Negative); URINE NITRITE-REFLEX NEGATIVE (Negative); URINE PROTEIN NEGATIVE (Negative); URINE SPECIFIC GRAVITY 1.025 (1.005-1.030); URINE UROBILINOGEN 0.2 E.U./dl (0.2-1.0)
[2020-02-06 22:31] LABS: CALCIUM 9.6 mg/dL (8.5-10.1); CREATININE 1.2 mg/dL (0.6-1.3); POTASSIUM 5.1 mmol/L (3.5-5.1)
[2020-02-06 22:36] LABS: MAGNESIUM 1.9 mg/dL (1.8-2.4); TOTAL BILIRUBIN 0.7 mg/dL (<0.1-1.0); TOTAL PROTEIN 7.3 g/dL (6.4-8.2)
[2020-02-06 23:42] LABS: PCO2 24.5 mmHg (35.0-45.0); PO2 109.7 mmHg (75.0-100.0)
[2020-02-06 23:45] LABS: pH 7.088 (7.340-7.450)
[2020-02-07] VITALS (21 sets, daily range): BP systolic 105–178; BP diastolic 29–79
[2020-02-07 06:29] LABS: ALBUMIN 3.7 g/dL (3.4-5.0); CALCIUM 8.9 mg/dL (8.5-10.1); CREATININE 1.3 mg/dL (0.6-1.3); MAGNESIUM 1.7 mg/dL (1.8-2.4); PHOSPHORUS* 4.2 mg/dL (2.5-4.9)
[2020-02-07 06:30] LABS: POTASSIUM 4.1 mmol/L (3.5-5.1)
[2020-02-07 10:21] LABS: CALCIUM 8.3 mg/dL (8.5-10.1); CREATININE 1.3 mg/dL (0.6-1.3)
[2020-02-07 10:26] LABS: BE -14.9 mmol/L (-2 to +3); PCO2 VENOUS 37.5 mmHg (41.0-51.0); PO2 VENOUS 40.5 mmHg (35.0-45.0)
--- NOTE | 2020-02-07 13:47 | EKG ---
[place] [address] ELECTROCARDIOGRAM REPORT Name: KATIE ZAMORA Room: [address] ADM IN M.R.#: [id number] Admission: 02/06/20 Attend Phys: Vania Evangelista, Discharge: Date of : 47 Date of Service: 02/06/202133 Report #: [id number] THIS REPORT FOR: //name// [facility] Test Date: 2020-02-06 Test Time: 21:34:17 Pat Name: KATIE ZAMORA Department: Room: [facility] Gender: F Weekend Caregiver: [place] : 1945 Requested By: Jackie Lanza Order Number: [id number] MD: Simon Collier Measurements Intervals [place] Rate: 106 P: 77 NM: 166 QRS: 34 QRSD: 106 T: 19 QT: 353 QTc: 469 Interpretive Statements Sinus tachycardia Probable left atrial enlargement Minimal ST depression, lateral leads Compared to ECG 12/05/2019 10:55:22 T-wave abnormality no longer present Myocardial infarct finding no longer present Prolonged QT interval no longer present ST (T wave) deviation still present Electronically Signed On 02-07-2020 13:46:58 CDT by Simon Collier [email or web address] <ELECTRONICALLY SIGNED> By: Simon Collier MD, FACC 02/07/20 1346 33 33 Simon Collier MD, [facility] /EPI
[2020-02-07 17:18] LABS: URINE POTASSIUM-RANDOM 33.7 mmol/L
[2020-02-07 17:31] LABS: CALCIUM 8.3 mg/dL (8.5-10.1); CREATININE 1.2 mg/dL (0.6-1.3); POTASSIUM 3.6 mmol/L (3.5-5.1)
[2020-02-08] VITALS (17 sets, daily range): BP systolic 97–163; BP diastolic 27–61
[2020-02-08 03:55] LABS: HEMATOCRIT 28.5 % (37.0-47.0); HEMOGLOBIN 8.9 gm/dL (12.0-15.0); MCH 25.1 pg (26.0-34.0); MCHC 31.3 g/dL (28.0-37.0); MPV 7.6 fl. (7.2-11.1); RBC 3.55 mil/uL (4.20-5.00); RDW-CV 17.4 % (10.5-14.5); WBC 15.5 thou/uL (4.0-11.0)
[2020-02-08 03:58] LABS: MCV 80.3 fL (80.0-100.0)
[2020-02-08 04:07] LABS: ALBUMIN 2.7 g/dL (3.4-5.0); CALCIUM 7.9 mg/dL (8.5-10.1); CREATININE 1.2 mg/dL (0.6-1.3); MAGNESIUM 1.5 mg/dL (1.8-2.4); POTASSIUM 3.1 mmol/L (3.5-5.1); TOTAL BILIRUBIN 0.3 mg/dL (<0.1-1.0); TOTAL PROTEIN 5.6 g/dL (6.4-8.2)
[2020-02-08 10:57] LABS: CALCIUM 8.3 mg/dL (8.5-10.1); POTASSIUM 3.2 mmol/L (3.5-5.1)
[2020-02-08 14:02] LABS: MAGNESIUM 1.7 mg/dL (1.8-2.4); POTASSIUM 3.8 mmol/L (3.5-5.1)
[2020-02-09 04:00] VITALS: BP 148/72
[2020-02-09 05:39] LABS: CALCIUM 8.3 mg/dL (8.5-10.1); CREATININE 0.9 mg/dL (0.6-1.3); MAGNESIUM 1.9 mg/dL (1.8-2.4); POTASSIUM 3.2 mmol/L (3.5-5.1)
[2020-02-09 08:00] VITALS: BP 169/68
[2020-02-09 10:59] VITALS: BP 169/68
[2020-02-09 12:35] VITALS: BP 169/68
== END 2020-02-09 13:12 | disposition home health service (06) | DRG 637 ==
LOC: M.ERS 21:00 → M.ICU 23:00 → M.TBA-ER 23:00 → M.ICU 02-07 01:48 → M.2W 02-08 13:52
PROVIDERS: Internal Medicine; Personal Emergency Response Attendant; ADMIT Internal Medicine; ATTEND Internal Medicine
DX: E11.10 Type 2 diabetes mellitus with ketoacidosis without coma (principal); N17.0 Acute kidney failure with tubular necrosis; G92 Toxic encephalopathy; R53.2 Functional quadriplegia; J96.01 Acute respiratory failure with hypoxia; Z20.828 Contact with and (suspected) exposure to other viral communicable diseases; Z96.652 Presence of left artificial knee joint; F32.9 Major depressive disorder, single episode, unspecified; E11.40 Type 2 diabetes mellitus with diabetic neuropathy, unspecified; I10 Essential (primary) hypertension; E11.65 Type 2 diabetes mellitus with hyperglycemia; E11.51 Type 2 diabetes mellitus with diabetic peripheral angiopathy without gangrene; I25.10 Atherosclerotic heart disease of native coronary artery without angina pectoris; E87.5 Hyperkalemia; Z79.899 Other long term (current) drug therapy; Z90.49 Acquired absence of other specified parts of digestive tract; Z95.5 Presence of coronary angioplasty implant and graft; I25.2 Old myocardial infarction; Z95.820 Peripheral vascular angioplasty status with implants and grafts; Z88.6 Allergy status to analgesic agent; Z88.1 Allergy status to other antibiotic agents; Z88.2 Allergy status to sulfonamides; Z88.8 Allergy status to other drugs, medicaments and biological substances; Z87.891 Personal history of nicotine dependence; Z28.21 Immunization not carried out because of patient refusal

== ENCOUNTER 2020-02-12 11:52 | Inpatient (IN) | payer MEDICARE ==
[2020-02-12] VITALS (33 sets, daily range): BP systolic 109–181; BP diastolic 30–53
[~2020-02-12] VITALS: Ht 157.5 cm; Wt 64.0 kg
[2020-02-12 12:33] LABS: BE -15.4 mmol/L (-2 to +3); PCO2 29.8 mmHg (35.0-45.0); PO2 87.3 mmHg (75.0-100.0)
[2020-02-12 12:36] LABS: pH 7.198 (7.340-7.450)
[2020-02-12 12:42] LABS: HEMATOCRIT 33.6 % (37.0-47.0); HEMOGLOBIN 10.2 gm/dL (12.0-15.0); MCH 25.6 pg (26.0-34.0); MCHC 30.4 g/dL (28.0-37.0); MCV 84.3 fL (80.0-100.0); NUCLEATED RBCS 0 /100WBC; PLATELET COUNT* 332 thou/uL (150-400); RBC 3.98 mil/uL (4.20-5.00); RDW-CV 18.3 % (10.5-14.5); WBC 11.4 thou/uL (4.0-11.0)
[2020-02-12 12:53] LABS: ANION GAP 21 mmol/L (7-16); BUN 15 mg/dL (7-18); CHLORIDE 97 mmol/L (98-107); CO2 16 mmol/L (21-32); CREATININE 1.1 mg/dL (0.6-1.3); GLUCOSE 309 mg/dL (70-99); INR 0.9; POTASSIUM 4.3 mmol/L (3.5-5.1); PROTIME 9.8 Seconds (9.20-11.50); SODIUM 134 mmol/L (136-145)
[2020-02-12 12:57] LABS: ALBUMIN 3.3 g/dL (3.4-5.0); ALKALINE PHOSPHATASE 146 U/L (46-116); MAGNESIUM 1.7 mg/dL (1.8-2.4); SGOT 24 U/L (15-37); SGPT 20 U/L (30-65); TOTAL BILIRUBIN 0.6 mg/dL (<0.1-1.0); TOTAL PROTEIN 7.4 g/dL (6.4-8.2)
[2020-02-12 13:08] LABS: ABSOLUTE LYMPHOCYTES 1.4 thou/uL (0.8-5.3); ABSOLUTE MONOCYTES 0.3 thou/uL (0.0-1.2); ABSOLUTE NEUTROPHILS 9.7 thou/uL (1.6-8.1); PLATELET ESTIMATE ADEQUATE
[2020-02-12 13:24] LABS: URINE BLOOD NEGATIVE (Negative); URINE CLARITY CLEAR; URINE COLOR YELLOW; URINE GLUCOSE-RANDOM 2+ (Negative); URINE LEUKOCYTES-REFLEX NEGATIVE (Negative); URINE NITRITE-REFLEX NEGATIVE (Negative); URINE PROTEIN NEGATIVE (Negative); URINE SPECIFIC GRAVITY >= 1.030 (1.005-1.030); URINE UROBILINOGEN 0.2 E.U./dl (0.2-1.0)
[2020-02-12 13:26] LABS: URINE BILIRUBIN 1+ (Negative); URINE KETONES 3+ (Negative)
[2020-02-12 13:27] LABS: ACETEST (KETONE CONFIRMATORY) ND (Negative)
[2020-02-12 13:28] LABS: ICTOTEST (BILI CONFIRMATORY) Negative (Negative)
[2020-02-12 13:35] LABS: AMP/METHAMP Negative (Negative); BARBITURATES Negative (Negative); BENZODIAZEPINES Negative (Negative); COCAINE Negative (Negative); METHADONE Negative (Negative); OPIATES Negative (Negative); PCP Negative (Negative); THC Negative (Negative)
--- NOTE | 2020-02-12 15:34 | EKG ---
[place] [address] ELECTROCARDIOGRAM REPORT Name: KATIE ZAMORA Room: [address] ADM IN M.R.#: [id number] Admission: 02/12/20 Attend Phys: Danilo Pérez Discharge: Date of : 47 Date of Service: 02/12/20 1200 Report #: [id number] THIS REPORT FOR: //name// [facility] ED Test Date: 2020-02-12 Test Time: 12:00:51 Pat Name: KATIE ZAMORA Department: Room: [facility] Gender: F Windows Consultant: JUANITO : 1945 Requested By: Jackie Lanza Order Number: [id number] MD: Pro Acuña Measurements Intervals [place] Rate: 97 P: 65 [place]: 152 QRS: 26 QRSD: 86 T: 174 QT: 349 QTc: 444 Interpretive Statements Sinus rhythm Probable left atrial enlargement Nonspecific T abnormalities, lateral leads Compared to ECG 02/06/2020 21:34:17 Sinus tachycardia no longer present Electronically Signed On 02-12-2020 15:34:40 ASSOCIATE PROJECT MANAGER by Pro Acuña [email or web address] <ELECTRONICALLY SIGNED> By: Pro Acuña MD, FACC 02/12/20 1534 1200 1200 Pro Acuña MD, [facility] /EPI
[2020-02-12 17:59] LABS: ALBUMIN 3.2 g/dL (3.4-5.0); CALCIUM 8.8 mg/dL (8.5-10.1); CREATININE 1.2 mg/dL (0.6-1.3); PHOSPHORUS* 2.8 mg/dL (2.5-4.9); POTASSIUM 3.9 mmol/L (3.5-5.1)
[2020-02-12 20:11] LABS: ALBUMIN 2.8 g/dL (3.4-5.0); CALCIUM 8.5 mg/dL (8.5-10.1); CREATININE 1.1 mg/dL (0.6-1.3); MAGNESIUM 1.3 mg/dL (1.8-2.4); PHOSPHORUS* 2.3 mg/dL (2.5-4.9); POTASSIUM 3.7 mmol/L (3.5-5.1)
--- NOTE | 2020-02-12 22:23 | NUR ---
INITAL ASSESMENT COMPLETED AT 1930. PT ON INSULIN DRIP BEING TREATED FOR DKA. PT LETHARGIC, FOLLOWING COMMANDS. PT ORIENTED TO PERSON, PLACE AND YEAR. PT GIVEN ICE CHIPS PER DR GOODE, NO NAUSEA OR VOMITING SO FAR TONIGHT. LAB VALUES RECIEVED ANND IV FLUIDS CHANGED PER PROTOCOL. CALL LIGHT IN REACH, PT DEMONSTRATES PROPER USE.
[2020-02-13] VITALS (39 sets, daily range): BP systolic 91–165; BP diastolic 20–67
[2020-02-13 01:04] LABS: ALBUMIN 2.5 g/dL (3.4-5.0); CALCIUM 8.2 mg/dL (8.5-10.1); CREATININE 1.2 mg/dL (0.6-1.3); MAGNESIUM 1.6 mg/dL (1.8-2.4); PHOSPHORUS* 1.7 mg/dL (2.5-4.9); POTASSIUM 3.6 mmol/L (3.5-5.1)
[2020-02-13 05:39] LABS: ALBUMIN 2.4 g/dL (3.4-5.0); CALCIUM 7.6 mg/dL (8.5-10.1); CREATININE 1.1 mg/dL (0.6-1.3); MAGNESIUM 2.4 mg/dL (1.8-2.4); PHOSPHORUS* 3.2 mg/dL (2.5-4.9); POTASSIUM 3.8 mmol/L (3.5-5.1)
[2020-02-13 08:56] LABS: HEMATOCRIT 28.9 % (37.0-47.0); HEMOGLOBIN 8.8 gm/dL (12.0-15.0); MCH 26.1 pg (26.0-34.0); MCHC 30.3 g/dL (28.0-37.0); MPV 7.9 fl. (7.2-11.1); RBC 3.36 mil/uL (4.20-5.00); RDW-CV 18.1 % (10.5-14.5); WBC 8.2 thou/uL (4.0-11.0)
[2020-02-13 09:07] LABS: ALBUMIN 2.5 g/dL (3.4-5.0); CALCIUM 7.7 mg/dL (8.5-10.1); MAGNESIUM 2.2 mg/dL (1.8-2.4); PHOSPHORUS* 3.5 mg/dL (2.5-4.9); POTASSIUM 4.4 mmol/L (3.5-5.1)
--- NOTE | 2020-02-13 16:55 | NUR ---
ICU ROUNDS: PT WAS DROWSY AND WOULD NOT RESPOND TO CM QUESTIONS. PER RN PT LIVES W/BROTHER. PT PRESENTED NAUSEA AND VOMIT. PT IS A&O. PT IS ON INSULIN DRIP.
--- NOTE | 2020-02-13 18:02 | NUR ---
DKA PROTOCOL DC'D THIS EVENING PER ORDER. PT TOLERATED DIET, NO NAUSEA OR VOMITING TODAY. VSS. COMPLETE BATH GIVEN. DTR, NAVA VISITED FOR FEW HOURS.
[2020-02-14] VITALS (11 sets, daily range): BP systolic 120–195; BP diastolic 43–89
[2020-02-14 04:05] LABS: ABSOLUTE EOSINOPHILS 0.5 thou/uL (0.0-0.7); ABSOLUTE LYMPHOCYTES 2.2 thou/uL (0.8-5.3); ABSOLUTE MONOCYTES 0.7 thou/uL (0.0-1.2); ABSOLUTE NEUTROPHILS 3.5 thou/uL (1.6-8.1); BASOPHILS 0.6 %; EOSINOPHILS 7.5 %; HEMATOCRIT 29.7 % (37.0-47.0); HEMOGLOBIN 9.3 gm/dL (12.0-15.0); LYMPHOCYTES 31.3 %; MCH 25.8 pg (26.0-34.0); MCHC 31.2 g/dL (28.0-37.0); MCV 82.6 fL (80.0-100.0); MONOCYTES 10.1 %; MPV 7.7 fl. (7.2-11.1); NUCLEATED RBCS 0 /100WBC; PLATELET COUNT* 270 thou/uL (150-400); POLYS 50.5 %; RBC 3.59 mil/uL (4.20-5.00); RDW-CV 18.4 % (10.5-14.5); WBC 6.9 thou/uL (4.0-11.0)
[2020-02-14 04:53] LABS: ALBUMIN 2.5 g/dL (3.4-5.0); ALKALINE PHOSPHATASE 110 U/L (46-116); ANION GAP 6 mmol/L (7-16); BUN 4 mg/dL (7-18); CALCIUM 8.3 mg/dL (8.5-10.1); CHLORIDE 110 mmol/L (98-107); CO2 26 mmol/L (21-32); CREATININE 0.8 mg/dL (0.6-1.3); GLUCOSE 193 mg/dL (70-99); PHOSPHORUS* 2.9 mg/dL (2.5-4.9); SGOT 18 U/L (15-37); SGPT 17 U/L (30-65); SODIUM 142 mmol/L (136-145); TOTAL BILIRUBIN 0.4 mg/dL (<0.1-1.0); TOTAL PROTEIN 5.7 g/dL (6.4-8.2)
[2020-02-14 05:05] LABS: BE -3.6 mmol/L (-2 to +3); PCO2 46.2 mmHg (35.0-45.0); PO2 64.7 mmHg (75.0-100.0); pH 7.308 (7.340-7.450)
--- NOTE | 2020-02-14 05:32 | NUR ---
VITALS STABLE, AFEBRILE. PT SLEPT THROUGH THE NIGHT, DENIES PAIN. A&O X4, FORGETFUL AT TIMES. UNEVENTFUL NIGHT. Q2 TURNS FOR SKIN INTEGRITY.
[2020-02-14 08:55] LABS: URINE BILIRUBIN NEGATIVE (Negative); URINE BLOOD 2+ (Negative); URINE CLARITY CLEAR; URINE COLOR YELLOW; URINE GLUCOSE-RANDOM 1+ (Negative); URINE KETONES NEGATIVE (Negative); URINE LEUKOCYTES 1+ (Negative); URINE NITRITE NEGATIVE (Negative); URINE PROTEIN NEGATIVE (Negative); URINE SPECIFIC GRAVITY >= 1.030 (1.005-1.030); URINE UROBILINOGEN 0.2 E.U./dl (0.2-1.0)
[2020-02-14 09:18] LABS: BACTERIA 1-9 Few /HPF (None Seen); CASTS None Seen /LPF (None Seen); CRYSTALS None Seen /LPF (None Seen); MUCUS None Seen strn/LPF (None Seen); SQUAMOUS 0-3 Few /LPF (0-3); URINE RBC 3-10 Few /HPF (0-2); YEAST Present (None Seen)
--- NOTE | 2020-02-14 14:02 | NUR ---
ICU rounds: M/s, moving to room 312. A little confused when she wakes. BS stable, on sliding scale
--- NOTE | 2020-02-14 15:45 | NUR ---
PT IS A/O X4 BUT SEEMS DISORIENTED WHEN FIRST WAKING UP/FORGETFUL.PT DOWNGRADED TO MED SURG STATUS.NEW REHAB CONSULT.UA COLLECTED.PT TO TRANSFER TO ROOM 312.PT UPDATED ON ROOM CHANGE. ALL PERSONAL BELONGINGS PACKED AND TAKEN WITH PT. REPORT CALLED TO ANNETTE ALEGRIA.PT WHEELED UP TO ROOM 312 BY NURSING STAFF.
--- NOTE | 2020-02-14 16:58 | NUR ---
REPORT RECIEVED FROM ABELARDO BRYANT. I CONCUR WITH HER DOCUMENTATION. PT TRANSFERED TO ROOM 312. FREQUENTLY USED ITEMS WITHIN REACH. FALL PRECAUTIONS IN PLACE. PT ALERT AND ORIENTED BUT FORGETFUL.
[2020-02-15 05:45] LABS: ALBUMIN 2.4 g/dL (3.4-5.0); CALCIUM 8.7 mg/dL (8.5-10.1); CREATININE 0.8 mg/dL (0.6-1.3); POTASSIUM 3.2 mmol/L (3.5-5.1); TOTAL BILIRUBIN 0.4 mg/dL (<0.1-1.0); TOTAL PROTEIN 5.6 g/dL (6.4-8.2)
--- NOTE | 2020-02-15 08:07 | NUR ---
PATIENT HAS RESTED WELL THROUGHOUT THE NIGHT. VSS ON RA. NO C/O PAIN. MEDICATIONS GIVEN ORDERED AND CHARTED. GRESHAM TO DEPENDENT DRAINAGE WITH YELLOW URINE OUTPUT. PATIENT UP WITH ASSIST X 1 WITH WALKER. IV IN LEFT FOREARM-SL. MIDLINE IN LEFT UPPER ARM-SL. FALL PRECAUTIONS IN PLACE. PATIENT INSTRUCTED TO USE CALL LIGHT WHEN NEEDING ASSISTANCE. HOURLY ROUNDS MADE. WILL CONTINUE WITH PLAN OF CARE AND NURSING TO MONITOR.
[2020-02-15 08:10] VITALS: BP 147/68
[2020-02-15 16:00] VITALS: BP 174/77
--- NOTE | 2020-02-15 16:28 | NUR ---
PT.HAD P.T. TODAY. WALKED LONG DISTANCES WITH WALKER AND SBA. Clau STEELESAID SHE FEELS PT.WOULD BE OK OT RETURN TO HER HOME WITH HOME HEALTH. SHE LIVES WITH BROTHER.
--- NOTE | 2020-02-15 16:53 | NUR ---
PATIENT UP WITH THERAPY IN HALLS THIS AFTERNOON, SBA WITH WALKER. MP LAU'Alex THIS AFTERNOON AT 1330, AWAITING PATIENT TO VOID. IV SL. POTASSIUM REPLACED PER PROTCOL, REDRAW AT THIS TIME. NO COMPLAINTS OF PAIN. DR. GOODE NOTIFIED THIS AM OF CRITICAL GLUCOSE, SSI CHANGED TO VERY LOW SCALE. POSSIBLE DISCHARGE TOMORROW.
[2020-02-15 20:00] VITALS: BP 148/61
[2020-02-16 07:17] LABS: CALCIUM 8.4 mg/dL (8.5-10.1); CREATININE 0.9 mg/dL (0.6-1.3); POTASSIUM 4.3 mmol/L (3.5-5.1)
--- NOTE | 2020-02-16 07:36 | NUR ---
Alert and oriented x 4. She is with stand by to the bathroom. She denies discomfort. Blood sugars are improving. Vitals are stable. She has slept well.
[2020-02-16 08:02] VITALS: BP 146/68
[2020-02-16] MEDS ORDERED: LISINOPRIL20 MG PO (10:15)
[2020-02-16] MEDS ORDERED: NEURONTIN 300M300 M2 PO (10:15)
[2020-02-16 13:56] VITALS: BP 146/68
--- NOTE | 2020-02-16 14:00 | NUR ---
DISCUSSSED DISCHARGE WITH PT.AND . PT.WAS AGREEABLE TO GOING TO SNF. FOR SHORT TERM. SHE WANTED TO KNOW WHAT DAUGHTERS THOUGHT. SHE SAID HER BROTHER COOKS BUT OTHERWISE DOESN'T HELP HER MUCH. CM CALLED DAUGHTER,LATRELL. SHE SAID SHE AND HER SISTER DO NOT WANT PT.TO GO TO SNF,BECAUSE SHE WOULD LAY IN BED ALL DAY AND GET DEPRESSED SINCE THEY CANNOT HAVE VISITORS. ENCOURAGED DAUGHTERS TO ASSIST PT.WITH BLOOD SUGARS AND MEDS. SHE SAID THEY DO ASSIST HER. NOTIFIED PT.AND OF CONVERSATION WITH LATRELL. PT.TO HAVE HH AT DISCHARGE. FAXED DISCHARGE AND H&P TO [facility] WITH CONFIRMATION IT WAS RECEIVED. DAUGHTER ,NAVA TO TAKE PT.HOME.
[2020-02-16 14:12] VITALS: BP 146/68
--- NOTE | 2020-02-16 14:42 | NUR ---
PT DIACHARGED HOME WITH HOME HEALTH. COPY OF DISCHARGE INSTRUCTIONS TO PT AND HER DAUGHTER WITH EXPLAINATION. BOTH VERBALIZED UNDERSTANDING. PRESCRIPTIONS CALLED TO PT PHARMACY BY DR GOODE. PT INFOMED THAT PRESCRIPTIONS WERE SENT.IV ACCESSES REMOVED.
== END 2020-02-16 14:45 | disposition home health service (06) | DRG 637 ==
LOC: M.ERS 11:52 → M.TBA-ER 13:10 → M.ICU 13:10 → M.3W 02-14 14:28
PROVIDERS: Personal Emergency Response Attendant; ADMIT Internal Medicine; ATTEND Internal Medicine
DX: E11.10 Type 2 diabetes mellitus with ketoacidosis without coma (principal); G93.41 Metabolic encephalopathy; E43 Unspecified severe protein-calorie malnutrition; N39.0 Urinary tract infection, site not specified; Z68.25 Body mass index [BMI] 25.0-25.9, adult; I10 Essential (primary) hypertension; F32.9 Major depressive disorder, single episode, unspecified; E11.40 Type 2 diabetes mellitus with diabetic neuropathy, unspecified; Z96.652 Presence of left artificial knee joint; Z20.828 Contact with and (suspected) exposure to other viral communicable diseases; I25.2 Old myocardial infarction; Z90.49 Acquired absence of other specified parts of digestive tract; Z79.4 Long term (current) use of insulin; Z79.899 Other long term (current) drug therapy; Z88.5 Allergy status to narcotic agent; Z88.2 Allergy status to sulfonamides; Z88.8 Allergy status to other drugs, medicaments and biological substances; Z87.891 Personal history of nicotine dependence; Z98.1 Arthrodesis status

== ENCOUNTER 2020-08-08 11:51 | Inpatient (IN) | payer MEDICARE ==
[~2020-08-08] VITALS: Ht 170.2 cm; Wt 52.6 kg
--- NOTE | ~2020-08-08 | H ---
[address] [address] HISTORY AND PHYSICAL Name: KATIE ZAMORA Room: [address] IN M.R.#: [id number] Admission: 08/08/20 Attend Phys: Alex Littlejohn Discharge: 08/08/20 Date of : 47 Report #: [id number] THIS REPORT FOR: cc: Smooth Garcia Vincent R. DO MORRIS,Medical Records Staff ~ For History and Physical please refer to the emergency room note in the patient's medical record. By: 0652Medical Records Staff MORRIS /DENA
[~2020-08-08 11:51] MED LIST changes: +NEURONTIN 300M300 M2 PO
[2020-08-08 11:56] VITALS: BP 148/53
[2020-08-08 12:13] LABS: HEMATOCRIT 34.2 % (37.0-47.0); HEMOGLOBIN 10.1 gm/dL (12.0-15.0); MCH 23.7 pg (26.0-34.0); MCHC 29.6 g/dL (28.0-37.0); MPV 8.1 fl. (7.2-11.1); NUCLEATED RBCS 0 /100WBC; PLATELET COUNT* 332 thou/uL (150-400); RBC 4.28 mil/uL (4.20-5.00); RDW-CV 17.5 % (10.5-14.5); WBC 14.8 thou/uL (4.0-11.0)
[2020-08-08 12:20] LABS: CREATININE 1.2 mg/dL (0.6-1.3); POTASSIUM 4.3 mmol/L (3.5-5.1)
[2020-08-08 12:25] LABS: TOTAL BILIRUBIN 0.7 mg/dL (<0.1-1.0); TOTAL PROTEIN 7.6 g/dL (6.4-8.2)
[2020-08-08 12:46] LABS: ABSOLUTE BASOPHILS 0.1 thou/uL (0.0-0.2); ABSOLUTE LYMPHOCYTES 0.4 thou/uL (0.8-5.3); ABSOLUTE NEUTROPHILS 13.2 thou/uL (1.6-8.1); ANISOCYTOSIS 1+; HYPOCHROMASIA 1+; OVALOCYTES 1+; PLATELET ESTIMATE ADEQUATE; POIKILOCYTOSIS 1+
[2020-08-08 14:05] LABS: URINE BILIRUBIN NEGATIVE (Negative); URINE BLOOD NEGATIVE (Negative); URINE CLARITY CLEAR; URINE COLOR YELLOW; URINE GLUCOSE-RANDOM 3+ (Negative); URINE LEUKOCYTES-REFLEX NEGATIVE (Negative); URINE NITRITE-REFLEX NEGATIVE (Negative); URINE PROTEIN NEGATIVE (Negative); URINE UROBILINOGEN 0.2 E.U./dl (0.2-1.0)
[2020-08-08 14:06] LABS: BE -10.9 mmol/L (-2 to +3); PO2 VENOUS 63.3 mmHg (35.0-45.0)
[2020-08-08 14:07] LABS: URINE KETONES 3+ (Negative)
[2020-08-08 14:09] LABS: ACETEST (KETONE CONFIRMATORY) Large (Negative)
[2020-08-08 14:58] LABS: APTT 21.3 Seconds (25.0-31.3); PROTIME 10.2 Seconds (9.20-11.50)
[2020-08-08 15:38] VITALS: BP 141/72
--- NOTE | 2020-08-08 15:50 | EKG ---
[place] [address] ELECTROCARDIOGRAM REPORT Name: KATIE ZAMORA Room: [address] IN M.R.#: [id number] Admission: 08/08/20 Attend Phys: Danilo Pérez Discharge: 08/08/20 Date of : 47 Date of Service: 08/08/20 1217 Report #: [id number] THIS REPORT FOR: //name// [facility] ED Test Date: 2020-08-08 Test Time: 12:17:40 Pat Name: KATIE ZAMORA Department: Room: [facility] Gender: F Parcel Wrapper: RAKAN : 1945 Requested By: Bobby Still Order Number: [id number] MD: Pro Acuña Measurements Intervals [place] Rate: 103 P: 77 [place]: 147 QRS: 40 QRSD: 84 T: 65 QT: 373 QTc: 489 Interpretive Statements Sinus tachycardia Probable left atrial enlargement Abnormal T, consider ischemia, lateral leads Baseline wander in lead(s) II,III,aVF Compared to ECG 02/12/2020 12:00:51 Possible ischemia now present Sinus rhythm no longer present T-wave abnormality still present Electronically Signed On 08-08-2020 15:50:37 CDT by Pro Acuña [email or web address] <ELECTRONICALLY SIGNED> By: Pro Acuña MD, [facility] 08/08/20 1550 1217 Pro Acuña MD, [facility] /EPI
== END 2020-08-08 14:33 | disposition short-term general hospital (02) | DRG 64 ==
LOC: M.ERS 11:51 → M.TBA-ER 13:36 → M.ICU 14:16
PROVIDERS: Emergency Medicine Emergency Medical Services; Physician Assistant; ADMIT Internal Medicine; ATTEND Internal Medicine
DX: I61.5 Nontraumatic intracerebral hemorrhage, intraventricular (principal); E11.10 Type 2 diabetes mellitus with ketoacidosis without coma; Z96.652 Presence of left artificial knee joint; E11.40 Type 2 diabetes mellitus with diabetic neuropathy, unspecified; F32.9 Major depressive disorder, single episode, unspecified; Z60.2 Problems related to living alone; Z20.822 Contact with and (suspected) exposure to COVID-19; Z90.49 Acquired absence of other specified parts of digestive tract; I25.2 Old myocardial infarction; Z95.5 Presence of coronary angioplasty implant and graft; Z79.899 Other long term (current) drug therapy; Z88.1 Allergy status to other antibiotic agents; Z88.2 Allergy status to sulfonamides

== ENCOUNTER 2020-09-11 12:01 | Inpatient (IN) | payer MEDICARE ==
[~2020-09-11] VITALS: Ht 157.5 cm; Wt 56.4 kg
--- NOTE | ~2020-09-11 | CON ---
[address] [address] CONSULTATION Name: KATIE ZAMORA Room: [place] [address] ADM IN M.Mala.#: [id number] Admission: 09/11/20 Attend Phys: Alex Littlejohn Discharge: Date of : 47 Report #: [id number] THIS REPORT FOR: cc: Smooth Garcia Vincent R. DO Khosla,Josh Morrison MD ~ DOC #: [id number] Josh Hopper MD DATE OF CONSULTATION: 09/12/2020 HISTORY OF PRESENT ILLNESS: This is a 75-year-old female patient who presented with a fall. The family says that it was a mechanical fall. She was on a golf card, something happened to the battery and she fell down. There was no passing out or any seizure activity. She had a couple of falls before, but there were also because of mechanical difficulty according to the daughter. She was in this hospital for intraventricular bleed and she was transferred to [facility] at that time. She was not on any anticonvulsant. REVIEW OF SYSTEMS: Positive for multiple things. She had intraventricular hemorrhage of unknown etiology. She had a history of a laceration of the head and she has a history of diabetes. She had trouble with the left leg. She has a history of hypoglycemia, hypoxia, hip fracture. Presently, she is too sleepy to give history, but apparently does not have any new eyes, ENT, cardiac symptoms. She does have musculoskeletal symptoms. Not any , GI, respiratory, constitutional, dermatological, hematological, and psychiatric symptom associated with present symptomatology. PAST MEDICAL HISTORY: Positive for intracerebral bleed. FAMILY HISTORY: Negative for any congenital epilepsy. SOCIAL HISTORY: She lives with a family member. Multiple family members check on her. PHYSICAL EXAMINATION: NEUROLOGIC: She is too sleepy. She did not say anything. She did not even follow commands for me. I cannot tell about her speech, memory or fund of knowledge, although I attempted. Cranial nerve examination 2-12 was attempted. She did not cooperate. She is too sleepy. It looks like she can wiggle the toes on the left side and more rest of the three extremities. She is not awake enough to participate in sensory tone or even reflexes examination because it is difficult to position her. She does not appear to [place] [address] CONSULTATION Name: KATIE ZAMORA Room: [address]#: [id number] Admission: 09/11/20 Attend Phys: Alex Littlejohn Discharge: Date of : 47 Report #: [id number] extremities. I could not visualize the fundus. GENERAL: She is a thinly-built individual. EXTREMITIES: It does not appear she has any edema. NECK: No thyroid mass or carotid bruit. VITAL SIGNS: Blood pressure is 162/55, pulse is 74, temperature is 98. DIAGNOSTIC DATA: She did have a CT scan, which indicate intraventricular bleed has resolved. Apparently, she has an appointment with the vascular surgeon, neurologist and the family says they do not know much about what happened in [place]. IMPRESSION: History of intracerebral bleed. RECOMMENDATION: We need to get the records from [place] to see if we can review it and give our recommendation. That was discussed with the family and we will try to get the records. More than 50 minutes of time was spent taking care of this patient today and majority was spent counseling, coordinating ____ as summarized above. Josh Hopper MD PK/SUB By: 1347 0155Josh Hopper MD /nt
[2020-09-11 12:12] VITALS: BP 161/52
[2020-09-11 15:05] LABS: HEMATOCRIT 27.1 % (37.0-47.0); HEMOGLOBIN 8.5 gm/dL (12.0-15.0); MCHC 31.4 g/dL (28.0-37.0); MCV 76.7 fL (80.0-100.0); MPV 7.6 fl. (7.2-11.1); RBC 3.54 mil/uL (4.20-5.00); RDW-CV 17.2 % (10.5-14.5); WBC 5.9 thou/uL (4.0-11.0)
[2020-09-11 15:20] LABS: CALCIUM 8.5 mg/dL (8.5-10.1); CREATININE 0.9 mg/dL (0.6-1.3); POTASSIUM 4.3 mmol/L (3.5-5.1)
[2020-09-11 17:15] VITALS: BP 159/53
[2020-09-11 17:30] VITALS: BP 184/63
--- NOTE | 2020-09-11 18:51 | NUR ---
PATIENT ARRIVED TO UNIT AT APPROX. 1725. PATIENT IS SLEEPY AND NOT A GREAT HISTORIAN. DOOR OPERATOR STATES THAT PATIENT HAS BEEN SLEEPING SINCE SHE RECEIVED 2 NORCO SEVERAL HOURS BEFORE COMING TO THIS UNIT. PATIENT IS A&OX3-4, PLEASANT AND COOPERATIVE WITH CARES. CONSULT CALLED TO [facility] AT APPROX. 1756-SPOKE WITH AMY WITH THE ANSWERING SERVICE. PATIENT IS CURRENTLY NPO, BLOOD SUGAR READING AT 1806 IS 275. PATIENT STATES THAT SHE LIVES AT HOME AND "HER BROTHER HAS BEEN STAYING WITH HER". PATIENT IS ON O2 @2L, WHICH WAS PLACED BY ER NURSE D/T SLIGHT DESATURATION AFTER HAVING PAIN MEDICATION. PATIENT IS CURRENTLY LYING IN BED WITH EYES CLOSED, APPEARS TO BE SLEEPING, RESPIRATIONS EVEN AND UNLABORED, NO DISTRESS NOTED. BED ALARM ON FOR PATIENT'S SAFETY. CALL LIGHT WITHIN REACH.
[2020-09-11 22:30] VITALS: BP 180/62
[2020-09-11 23:58] VITALS: BP 190/60
[2020-09-12 01:30] VITALS: BP 137/57
[2020-09-12 04:20] VITALS: BP 176/41
--- NOTE | 2020-09-12 06:57 | NUR ---
PATIENT HAS RESTED WELL THROUGHOUT MOST OF THE NIGHT. VSS ON 2L 02 VIA NASAL CANNULA. PATIENT HAS REMAINED NWB ON LEFT EXTREMITY. MEDICATIONS GIVEN ORDERED AND CHARTED. ORTHO HERE THIS AM TO SEE PATIENT. PATIENT INCONTINENT OF URINE AND PERIWICK IN PLACE. IV IN RIGHT AC-SL. FALL PRECAUTIONS IN PLACE AND HOURLY ROUNDS MADE. WILL CONTINUE WITH PLAN OF CARE AND NURSING TO MONITOR.
--- NOTE | 2020-09-12 07:45 | NUR ---
PATIENT DID HAVE ELEVATED BP DURING THE SHIFT. NOTIFIED VIA CRISPIN ECHAVARRIA. NEW ORDERS GIVEN. MEDICATIONS GIVEN ORDERED AND CHARTED. NURSING TO CONTINUE MONITORING.
[2020-09-12 07:55] VITALS: BP 162/55
[2020-09-12 10:18] LABS: ABSOLUTE EOSINOPHILS 0.2 thou/uL (0.0-0.7); ABSOLUTE MONOCYTES 0.9 thou/uL (0.0-1.2); ABSOLUTE NEUTROPHILS 5.1 thou/uL (1.6-8.1); BASOPHILS 0.4 %; EOSINOPHILS 2.2 %; HEMATOCRIT 28.9 % (37.0-47.0); LYMPHOCYTES 13.3 %; MCV 77.4 fL (80.0-100.0); MONOCYTES 12.2 %; MPV 8.3 fl. (7.2-11.1); NUCLEATED RBCS 0 /100WBC; PLATELET COUNT* 230 thou/uL (150-400); POLYS 71.9 %; RBC 3.74 mil/uL (4.20-5.00); RDW-CV 17.1 % (10.5-14.5); WBC 7.1 thou/uL (4.0-11.0)
[2020-09-12 10:38] LABS: ALBUMIN 3.3 g/dL (3.4-5.0); CALCIUM 8.9 mg/dL (8.5-10.1); CREATININE 0.8 mg/dL (0.6-1.3); POTASSIUM 3.8 mmol/L (3.5-5.1); TOTAL BILIRUBIN 0.4 mg/dL (<0.1-1.0); TOTAL PROTEIN 6.5 g/dL (6.4-8.2)
--- NOTE | 2020-09-12 14:00 | NUR ---
PT UP TO UNIT FROM [facility]. LEFT KNEE IN IMMOBILIZER. FAMILY WITH PATIENT AT THIS TIME. PT DROWSY. PT ORIENTED TO SELF AT THIS TIME. AGREE WITH PREVIOUS NURSE ASSESSMENT. WILL CONTINUE TO MONITOR.
--- NOTE | 2020-09-12 14:09 | NUR ---
PATIENT BEING TRANSFERRED TO TELE ROOM 227. REPORT CALLED TO ANNETTE BLEDSOE EARLIER IN SHIFT. PATIENT LEFT THIS UNIT BY BED AT APPROX. 1408. PATIENT HAS CONTINUED TO BE DROWSY THIS SHIFT.
--- NOTE | 2020-09-12 14:54 | EKG ---
[place] [address] ELECTROCARDIOGRAM REPORT Name: KATIE ZAMORA Room: [place] [address] ADM IN M.R.#: [id number] Admission: 09/11/20 Attend Phys: Danilo Pérez Discharge: Date of : 47 Date of Service: 09/11/20 1448 Report #: [id number] THIS REPORT FOR: //name// [facility] ED Test Date: 2020-09-11 Test Time: 14:48:57 Pat Name: KATIE ZAMORA Department: Room: [facility] Gender: F Drying Rack Changer: LOLI : 1945 Requested By: Alex Wing Order Number: [id number] MD: Pro Acuña Measurements Intervals [place] Rate: 62 P: 78 AL: 157 QRS: 23 QRSD: 85 T: 50 QT: 449 QTc: 456 Interpretive Statements Sinus rhythm Probable left atrial enlargement Probable left ventricular hypertrophy Compared to ECG 08/08/2020 12:17:40 Sinus tachycardia no longer present T-wave abnormality no longer present Possible ischemia no longer present Electronically Signed On 09-12-2020 14:54:29 CDT by Pro Acuña [email or web address] <ELECTRONICALLY SIGNED> By: Pro Acuña MD, [facility] 09/12/20 1454 1448 1448 Pro Acuña MD, [facility] /EPI
--- NOTE | 2020-09-12 15:14 | NUR ---
Pt is A&O. Resides at home with brother. Independent, but brother available to assist if needed. Pt has a walker and wc for mobility. Hx of [facility]. Hx of skilled at [facility]. Therapies ordered. Pt NWB LLE. CT today, then tele status d/t a syncope episode. Pt will likely needs SNF at dc. CM to fax initial referral once therapies eval Pt. Anticipate dc in a few days.
[2020-09-12 16:00] VITALS: BP 134/49
--- NOTE | 2020-09-12 18:49 | NUR ---
PT MORE AWAKE. PT ATE MOST OF DINNER. TREMORS IN UPPER EXTREMITIES AND HANDS NOTED. PUREWICK IN PLACE. PT ON 3L NC. PT DROWSY MOST OF SHIFT. BED CHANGED. PT SPILLED WATER AND FOOD IN BED. PT REMAINS IN LEFT KNEE IMMOBILIZER. CALL LIGHT WITHIN REACH. WILL CONTINUE TO MONITOR.
[2020-09-12 20:15] VITALS: BP 124/41
[2020-09-13] VITALS: BP 111/44
[2020-09-13 03:06] LABS: GLYCOHEMOGLOBIN (HGB A1C) 12.2 % (4.8-5.6)
[2020-09-13 04:00] VITALS: BP 135/90
[2020-09-13 05:05] LABS: ABSOLUTE EOSINOPHILS 0.1 thou/uL (0.0-0.7); ABSOLUTE LYMPHOCYTES 1.7 thou/uL (0.8-5.3); ABSOLUTE MONOCYTES 0.7 thou/uL (0.0-1.2); ABSOLUTE NEUTROPHILS 2.6 thou/uL (1.6-8.1); BASOPHILS 0.7 %; EOSINOPHILS 2.3 %; HEMATOCRIT 26.1 % (37.0-47.0); HEMOGLOBIN 8.2 gm/dL (12.0-15.0); LYMPHOCYTES 32.3 %; MCH 24.2 pg (26.0-34.0); MCHC 31.6 g/dL (28.0-37.0); MCV 76.8 fL (80.0-100.0); MONOCYTES 14.3 %; MPV 8.2 fl. (7.2-11.1); NUCLEATED RBCS 0 /100WBC; PLATELET COUNT* 230 thou/uL (150-400); POLYS 50.4 %; RDW-CV 17.1 % (10.5-14.5); WBC 5.2 thou/uL (4.0-11.0)
--- NOTE | 2020-09-13 05:07 | NUR ---
PT SLEPT MOST OF SHIFT. ASSESSMENT DOCUMENTED. MEDS GIVEN PER E-MAR. IV PATENT. PT REPORTED MILD PAIN BUT REFUSED PAIN MEDICATIONS. PT ABLE TO MAKE NEEDS KNOWN. WILL CONTINUE WITH PLAN OF CARE.
[2020-09-13 05:22] LABS: CHOLESTEROL 84 mg/dL (<200); HDL CHOLESTEROL 50 mg/dL (>40); LDL CHOLESTEROL 22 mg/dL (<100); TC:HDL 1.7 Ratio (Not establshd); TRIGLYCERIDE 61 mg/dL (<150); VLDL 12 mg/dL (<40)
[2020-09-13 05:24] LABS: SERUM ASSESSMENT Clear
[2020-09-13 05:32] LABS: ALBUMIN 2.9 g/dL (3.4-5.0); CALCIUM 8.7 mg/dL (8.5-10.1); POTASSIUM 3.7 mmol/L (3.5-5.1); TOTAL BILIRUBIN 0.3 mg/dL (<0.1-1.0); TOTAL PROTEIN 6.1 g/dL (6.4-8.2)
[2020-09-13 07:45] VITALS: BP 126/47
[2020-09-13 12:00] VITALS: BP 129/54
--- NOTE | 2020-09-13 12:08 | NUR ---
KELLY SPK WITH PT'S BROTHER AND DTR, NAVA RE D/C PLANNING. FAMILY WORKS DURING THE DAY AND WOULD ONLY BE ABLE TO DROP IN A FEW TIMES THROUGHOUT THE DAY. NAVA STATED SHE WOULD LIKE FOR PT TO GO TO SNF. NAVA HAS NO PREFERENCE. PT HAS HX WITH [facility], HOWEVER CM EXPLAINED THEY CURRENTLY HAVE 0 BEDS AVAIL. NAVA IS GOING TO WORK ON ALTERNATIVE PLAN IN CASE PT ISNT APPROVED FOR AUTH SHE THINKS PT MAY HAVE USED UP HER DAYS FOR THE YEAR.
--- NOTE | 2020-09-13 14:21 | NUR ---
guero with [facility] indicated they can clinically accept pt. lennox will submit for insurance auth.
[2020-09-13 16:00] VITALS: BP 168/64
[2020-09-13 20:00] VITALS: BP 126/60
[2020-09-14 00:56] VITALS: BP 164/58
[2020-09-14 04:00] VITALS: BP 138/63
--- NOTE | 2020-09-14 05:45 | NUR ---
PT SLEPT ON AND OFF THIS SHIFT. ASSESSMENT DOCUMENTED. MEDS GIVEN PER E-JUN. PT CONFUSED AND HALLUCINATING MOST OF SHIFT. FALL PRECAUTIONS IN PLACE. PT INCONTINENT AT TIMES. WILL CONTINUE WITH PLAN OF CARE.
[2020-09-14 08:00] VITALS: BP 123/56
[2020-09-14] MEDS ORDERED: ASPIRIN325 PO (08:55)
[2020-09-14 14:06] VITALS: BP 124/49
[2020-09-14 16:30] VITALS: BP 167/67
--- NOTE | 2020-09-14 18:30 | NUR ---
RECEIVED REPORT. ASSUMED CARE OF PT AROUND 0730. AM ASSESSMENT AND VITALS COMPLETED CHARTED. MEDS PER EMAR. PT WITH LOW BLOOD GLUCOSE AND HALLUCINATIONS THIS AFTERNOON/EARLY EVENING. BS UP WITH OJ AND SNACK, BUT PT STILL HALLUCINATING AND SOMEWHAT LETHARGIC. WAS ABLE TO EAT DINNER WITH ASSISTANCE. DR FABIAN. ORDERS RECEVIED FOR LABS AND UA AND FLUID BOLUS. DRILLING FIELD OPERATOR IN PLACE. WCTM. FALL PRECAUTIONS IN PLACE .CALL LIGHT WITHIN REACH. HOURLY ROUNDING PERFORMED. LLE IMMOBILIZER IN PLACE.
[2020-09-14 20:00] VITALS: BP 149/52
[2020-09-14 20:26] LABS: MCH 23.8 pg (26.0-34.0); MCHC 30.9 g/dL (28.0-37.0); MCV 77.1 fL (80.0-100.0); MPV 7.5 fl. (7.2-11.1); RBC 3.37 mil/uL (4.20-5.00); RDW-CV 16.8 % (10.5-14.5); WBC 4.9 thou/uL (4.0-11.0)
[2020-09-14 20:39] LABS: ALBUMIN 2.8 g/dL (3.4-5.0); CALCIUM 8.2 mg/dL (8.5-10.1); CREATININE 0.7 mg/dL (0.6-1.3); POTASSIUM 4.5 mmol/L (3.5-5.1); TOTAL BILIRUBIN 0.3 mg/dL (<0.1-1.0)
[2020-09-15] VITALS: BP 160/67
[2020-09-15 04:00] VITALS: BP 160/56
--- NOTE | 2020-09-15 06:05 | NUR ---
ASSUMED PT CARE AT APPROX 1930. PT IS AWAKE AND ORIENTED X4. PT IS NOT IN DISTRESS, spO2 INCREASED TO 2L/NC TO MAINTAIN spO2>92%. PT IS TRACING SR ON THE COOK CHEF. PT DENIES THE NEED FOR PAIN MEDICINE OF THIS TIME, STATING THAT KNEE "DOES NOT HURT ONLY WHEN I MOVE IT", IMMOBILIZER KEPT IN PLACE, OFFERED PAIN MEDICINE BUT PT DECLINED. REMAINED INCONTINENT, PT IS KEPT CLEAN AND DRY. HIGH FALL PRECAUTIONS IN PLACE. CALL LIGHT WITHIN REACH. HOURLY ROUNDING DONE FOR PT SAFETYY.
[2020-09-15 09:00] VITALS: BP 194/75
[2020-09-15 13:44] VITALS: BP 131/71
[2020-09-15 14:49] LABS: URINE BILIRUBIN NEGATIVE (Negative); URINE BLOOD TRACE (Negative); URINE CLARITY CLOUDY; URINE COLOR YELLOW; URINE GLUCOSE-RANDOM 3+ (Negative); URINE KETONES TRACE (Negative); URINE LEUKOCYTES-REFLEX 2+ (Negative); URINE NITRITE-REFLEX POSITIVE (Negative); URINE PROTEIN NEGATIVE (Negative); URINE SPECIFIC GRAVITY 1.025 (1.005-1.030); URINE UROBILINOGEN 0.2 E.U./dl (0.2-1.0)
[2020-09-15 14:58] LABS: SQUAMOUS 0-3 Few /LPF (0-3)
[2020-09-15 14:59] LABS: BACTERIA-REFLEX >30 Many /HPF (None Seen); CASTS None Seen /LPF (None Seen); CRYSTALS None Seen /LPF (None Seen); URINE RBC 0-2 Rare /HPF (0-2); URINE WBC-REFLEX >25 Many /HPF (0-5)
[2020-09-15 16:00] VITALS: BP 164/61
[2020-09-15 20:00] VITALS: BP 140/62
[2020-09-16] VITALS: BP 187/65
[2020-09-16 04:00] VITALS: BP 133/52
--- NOTE | 2020-09-16 04:52 | NUR ---
ASSUMED PT CARE AT APPROX 1930. PT IS AWAKE, ORIENTED TO SELF, PLACE AND SITUATION, FORGETFUL AT TIMES. PT IS NOT IN DISTRESS, NO DESATURATIONS NOTED ON 2L OF O2/NC. PT IS TRACING SR ON THE HIM SPECIALIST. PT DENIES PAIN, KNEE IMMOBILIZER IN PLACE. PT REMAINED INCONTINENT, PT IS KEPT CLEAN AND DRY. POSITION CHANGES DONE. CALL LIGHT WITHIN REACH. HOURLY ROUNDING DONE FOR PT SAFETY.
[2020-09-16 05:10] LABS: ABSOLUTE EOSINOPHILS 0.3 thou/uL (0.0-0.7); ABSOLUTE MONOCYTES 0.7 thou/uL (0.0-1.2); ABSOLUTE NEUTROPHILS 2.6 thou/uL (1.6-8.1); BASOPHILS 0.5 %; EOSINOPHILS 5.4 %; HEMATOCRIT 28.1 % (37.0-47.0); HEMOGLOBIN 8.8 gm/dL (12.0-15.0); LYMPHOCYTES 34.8 %; MCH 24.1 pg (26.0-34.0); MCHC 31.4 g/dL (28.0-37.0); MCV 76.8 fL (80.0-100.0); MONOCYTES 12.9 %; MPV 7.5 fl. (7.2-11.1); NUCLEATED RBCS 0 /100WBC; PLATELET COUNT* 272 thou/uL (150-400); POLYS 46.4 %; RBC 3.65 mil/uL (4.20-5.00); RDW-CV 17.1 % (10.5-14.5); WBC 5.6 thou/uL (4.0-11.0)
[2020-09-16 05:23] LABS: CALCIUM 8.9 mg/dL (8.5-10.1); CREATININE 0.6 mg/dL (0.6-1.3); POTASSIUM 3.9 mmol/L (3.5-5.1)
[2020-09-16 08:14] VITALS: BP 166/58
[2020-09-16 12:00] VITALS: BP 166/58
--- NOTE | 2020-09-16 18:45 | NUR ---
PATIENT HAS REMAINED A&OX4, PLEASANT AND COOPERATIVE WITH CARES THIS SHIFT. PATIENT DISCHARGING TO [facility]. PATIENT PICKED UP AND LEFT VIA STRETCHER ON O2@2 AT APPROX. 1845.
--- NOTE | 2020-09-16 18:51 | NUR ---
IV'S REMOVED PRIOR TO DISCHARGING.
== END 2020-09-16 18:45 | DRG 533 ==
LOC: M.ERS 12:01 → M.TBA-ER 16:24 → M.ORTHSURG 16:24 → M.2W 16:24 → M.ORTHSURG 17:32 → M.2W 09-12 14:10
PROVIDERS: Emergency Medicine Emergency Medical Services; Internal Medicine; ADMIT Internal Medicine; ATTEND Internal Medicine
PROC: 2W3RXYZ Immobilization of Left Lower Leg using Other Device (ICD-10-PCS; principal; 2020-09-12)
DX: S72.492A Other fracture of lower end of left femur, initial encounter for closed fracture (principal); J96.00 Acute respiratory failure, unspecified whether with hypoxia or hypercapnia; M97.12XA Periprosthetic fracture around internal prosthetic left knee joint, initial encounter; E44.0 Moderate protein-calorie malnutrition; J98.11 Atelectasis; F32.9 Major depressive disorder, single episode, unspecified; S93.402A Sprain of unspecified ligament of left ankle, initial encounter; E11.40 Type 2 diabetes mellitus with diabetic neuropathy, unspecified; W18.39XA Other fall on same level, initial encounter; I25.10 Atherosclerotic heart disease of native coronary artery without angina pectoris; E11.51 Type 2 diabetes mellitus with diabetic peripheral angiopathy without gangrene; E11.65 Type 2 diabetes mellitus with hyperglycemia; D64.9 Anemia, unspecified; Z96.652 Presence of left artificial knee joint; Z20.822 Contact with and (suspected) exposure to COVID-19; Z68.22 Body mass index [BMI] 22.0-22.9, adult; Z79.4 Long term (current) use of insulin; Z79.899 Other long term (current) drug therapy; Z88.1 Allergy status to other antibiotic agents; Z98.1 Arthrodesis status; Z88.5 Allergy status to narcotic agent; Z88.2 Allergy status to sulfonamides; I25.2 Old myocardial infarction; Z88.8 Allergy status to other drugs, medicaments and biological substances; Z90.49 Acquired absence of other specified parts of digestive tract; Y93.89 Activity, other specified; Y92.89 Other specified places as the place of occurrence of the external cause; Y99.8 Other external cause status; Z87.891 Personal history of nicotine dependence